=== PATIENT | male | born 1960 | race Two or more races ===

== ENCOUNTER → 2024-07-22 | Outpatient (CLI) | payer MEDICAID, SELFPAY ==
--- NOTE | 2024-07-22 12:00 | XR_ITS ---
Exam: MRI knee without contrast, right Date and time of exam: July 22, 2024 1223 hours INDICATIONS: Chronic knee pain more severe the last year paresthesias joint clicking instability Technique: Multiple axial, coronal, and sagittal sections on the knee have been obtained. T2-Weighted sagittal, fat-suppressed images, TR 3,500, TE 62, T2 weighted coronal fat-saturated images, TR 3,500, TE 62 Proton density sagittal sections, TR 1800, TE 31. T-1 weighted coronal images, TR 524, TE 13.0 Findings: Medial meniscus anterior horn absent. Medial meniscus, body absent. Posterior horn medial meniscus severe truncation intermargin. Lateral meniscus anterior horn is intact Lateral meniscus, body is intact Posterior horn lateral meniscus is intact Anterior cruciate ligament severely attenuated Posterior cruciate ligament moderately attenuated Knee effusion is large. Quadriceps and patellar tendons appear intact. There is no evidence of tendinosis. Inflammatory change or fracture of Hoffa's fat pad is not seen. Medial patellar facet demonstrates severe thinning. Lateral patellar facet cartilage demonstrates severe thinning. Trochlear cartilage demonstrates severe thinning. Marrow signal adequate. Medial collateral ligament appears intact. No meniscocapsular separation is seen. Illiotibial band and fibular collateral ligament are intact. Biceps femoris tendons appear intact. Medial femoral condylar articular cartilage demonstrates severe thinning. Lateral femoral condylar articular cartilage demonstratesmild thinning. Tibial plateau cartilage demonstrates severe medial thinning. Impression: Absent anterior horn and body of the medial meniscus Severe truncation posterior horn medial meniscus Severely attenuated anterior cruciate ligament Severe thinning cartilage medial patellofemoral joints
== END | disposition home or self-care (01) ==
PROVIDERS: PCP Physician Assistant; Referring Provider Orthopaedic Surgery; Visit Provider Orthopaedic Surgery
DX: M25.861 Other specified joint disorders, right knee (principal)
CPT/HCPCS: 73721

== ENCOUNTER 2024-08-15 09:45 | Day surgery (SDC) | payer MEDICAID, SELFPAY ==
[2024-08-14 10:04] VITALS: BMI 34.1
[2024-08-14 11:02] LABS: Basophils # (Auto) 0.1 Thou/mm3 (0.0-0.2); Basophils % (Auto) 0 % (0-2.5); Eosinophils # (Auto) 0.1 Thou/mm3 (0.0-0.5); Eosinophils % (Auto) 1 % (0-10); Hematocrit 43.5 % (41.0-53.0); Hemoglobin 14.6 g/dL (13.5-16.0); Immature Granulocytes % (Auto) 1 % (0-0); Lymphocytes # (Auto) 1.8 Thou/mm3 (1.0-4.8); Lymphocytes % (Auto) 15 % (10-50); Mean Corpuscular HGB Conc 33.6 g/dl (31.0-37.0); Mean Corpuscular Hemoglobin 30.5 pg (25.0-35.0); Mean Corpuscular Volume 91 fL (80-100); Monocytes # (Auto) 0.8 Thou/mm3 (0.0-0.8); Monocytes % (Auto) 7 % (0-12); Neutrophils # (Auto) 9.1 Thou/mm3 (1.8-7.7); Neutrophils % (Auto) 77 % (37-80); Nucleated Red Blood Cell % 0 /100 WBC (0); Platelet Count 257 Thou/mm3 (140-440); RDW Standard Deviation 47.4 fL (35.1-43.9); Red Blood Count 4.78 Miln/mm3 (4.50-5.90); White Blood Count 11.9 Thou/mm3 (3.8-10.6)
[2024-08-14 11:09] LABS: Partial Thromboplastin Time 24.2 Seconds (22.0-36.0)
[2024-08-14 11:13] LABS: Alanine Aminotransferase 39 U/L (10-49); Albumin, Serum 4.6 gm/dL (3.4-4.8); Albumin/Globulin Ratio 1.6 (1.2-2.2); Alkaline Phosphatase 87 U/L (46-116); Anion Gap 11 (7-16); Aspartate Amino Transferase 25 U/L (0-34); BUN/Creatinine Ratio 31 Ratio (12-20); Bilirubin,Total 0.3 mg/dL (0.3-1.2); Blood Urea Nitrogen 28 mg/dL (9-23); Calcium 10.2 mg/dL (8.3-10.6); Calcium (Corrected) 10.2 mg/dL (8.5-10.1); Carbon Dioxide 25.5 mMol/L (20.0-31.0); Chloride 105 mMol/L (98-107); Creatinine (Component) 0.9 mg/dL (0.6-1.3); Estimated Creatinine Clearance 85.1 mL/min (>60); Globulin 2.8 gm/dL (2.3-3.5); Glucose 152 mg/dL (74-106); Osmolality,Calculated 289 (275-295); Potassium 3.2 mMol/L (3.4-5.1); Sodium 141 mMol/L (136-145); Total Protein 7.4 gm/dL (5.7-8.2); eGFR > 60 See Note
--- NOTE | 2024-08-14 15:24 | ESHP_ITS ---
RE: MAXINE SUAREZ : 1960 DATE OF ADMISSION: 08/15/2024 HISTORY OF PRESENTING COMPLAINT: The patient came to my office on 08/14/2024 for detailed preop history and physical examination for right knee pain. As per history available, the patient has got right knee pain going on for a few years, but last few months are extremely painful. The intensity of pain is graded 8 to 9/10 and it interferes with activities of daily living and quality of life. The patient has to stop walking after 1 to 2 block due to pain. Unable to sleep. MRI scan confirmed torn meniscus with arthritic changes and increased joint fluid. PAST MEDICAL HISTORY: The patient has history of high blood pressure and prediabetic. No history of asthma, seizures, chest pain, myocardial infarction, or bleeding disorder. PAST SURGICAL HISTORY: Cataract surgery and left knee arthroscopy in 03/2024. DRUG HISTORY: 1. Furosemide. 2. Losartan. 3. Naprosyn. 4. Diphenhydramine. 5. Zepbound. ALLERGIES: NIL KNOWN FAMILY HISTORY AND SOCIAL HISTORY: The patient denies smoking, drinking and is not working. PHYSICAL EXAMINATION: GENERAL: Normal built lady. VITAL SIGNS: Pulse 88 per minute. Blood pressure 122/88. NECK: Soft, supple, no masses felt. Trachea is centrally placed. CARDIOVASCULAR SYSTEM: First and second hearts sounds normal. No murmur heard. LUNGS: Bilateral vesicular breath sounds. CHEST: Clear. ABDOMEN: Soft. No masses felt. Bowel sounds present. BREASTS: Exam is not indicated in this case. RECTAL: The patient is advised to see the family physician for rectal examination. EXTREMITIES: Right knee examination revealed mild swelling. There is 2+ tenderness. Active range of motion 0 to 120 degrees of flexion. Patellofemoral crepitus is present. The patient walks with a limp. DIAGNOSTIC DATA: MRI scan confirmed torn meniscus with arthritic changes and possible ACL tear. ASSESSMENT AND PLAN: Since the patient is symptomatic, therefore, right knee arthroscopy was discussed and advised. Risks with anesthesia were explained and that includes, but not limited to reaction to anesthetic agents, cardiac arrest, rarely it might be fatal. Risks with the operation includes infection and if that happens, the patient may need further surgical procedure. Other risks include deep venous thrombosis, pulmonary embolus, which rarely might be fatal. Indeed if one finds grade 3 and/or grade 4 chondromalacia, there is a possibility that the patient may not improve pain-ruelas and in that case, the patient may have to undergo another surgical procedure. The patient is fully aware of that. Accordingly, surgery is booked for 08/15/2024. Appropriate lab work is done. DT: 12:28:25 TT: 15:22:00 Ref: [id number] - TID: [id number]
[2024-08-15] VITALS (7 sets, daily range): BP systolic 102–142; BP diastolic 62–96; PULSE 84–97; RESP 13–23; TEMP 36.2–36.7; O2SAT 95–100; BMI 33.7
--- NOTE | 2024-08-15 12:36 | PD.SUROPNT ---
Date of Procedure 08/15/24 Pre Op Diagnosis 1. Torn medial meniscus right knee joint 2 torn lateral meniscus 3 degenerative joint disease changes 4 synovitis with medial plica Post Op Diagnosis Same Procedure 1. 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 Almost all areas of the medial tibial plateau and femoral condyle were denuded of cartilage. Patella and anterior femoral condyle showed grade IV chondromalacia. The lateral tibial plateau and lateral femoral condyle showed grade III chondromalacia. The medial meniscus showed complex tear. There was a synovitis and medial plica present. ACL was partially torn Procedure Description The patient was given general endotracheal anesthesia. Once satisfactory anesthesia was achieved, tourniquet was placed on right upper thigh. Following that the part was thoroughly prepped and draped. After using Esmarch the tourniquet pressure was raised to 350 mmHg. A skin incision was made proximal to lateral tibial plateau and arthroscope was introduced in the usual fashion. Another a skin incision was made in suprapatellar pouch area and outlet was established. The findings were noted as below. In suprapatellar pouch area significant synovial tissue inflammation was present. Medial plica was present as well. The undersurface of patella showed grade 4 chondromalacia. The anterior femoral condyle showed grade 3/4 chondromalacia. Soft tissue impingement was present. The patellar tracking was checked and found to be good. Medial shelf was present The medial compartment showed grade 4 chondromalacia for medial tibial plateau and medial femoral condyle. Almost all areas of medial tibial plateau were denuded of cartilage. The medial femoral condyle showed more than half area of denuded of cartilage. The medial meniscus showed degeneration and and complex tear tear of the anterior horn, body and posterior horn Another skin incision was made proximal to medial tibial plateau and a probe was introduced and findings were confirmed. The anterior cruciate ligament was partially torn. The anterior drawer test was performed and found to be good. The lateral compartment showed grade III chondromalacia of lateral femoral condyle and tibial plateau. Lateral meniscus showed degeneration of the body and anterior horn. Basket was introduced in medial compartment and torn part of the medial meniscus was excised. A shaver was introduced and shaving of the anterior horn and posterior horn of medial meniscus was performed. Soft tissue impingement was shaved off. Chondroplasty of the medial femoral condyle and medial tibial plateau was performed. The shaving of the body and anterior horn of lateral meniscus was done. Chondroplasty of the lateral femoral condyle and tibial plateau was done. The chondroplasty of the patella and and anterior femoral condyle was performed. The soft tissue impingement was shaved off. A partial synovectomy including excision of plica was performed. Copious amount of irrigation was used to irrigate the knee joint. All the debris were removed. 3-0 Prolene was used to close the wound. About 20 mL of quarter percent Marcaine along with 10 mg of Duramorph was injected. Patient tolerated procedure well. Estimated blood loss was about 5 mL. Prognosis in this case is extremely guarded. Since patient has significant chondromalacia therefore there is a possibility that patient may continue having short and or long-term pain. If the pain is unbearable and last longer patient may be a candidate for knee replacement and patient is fully aware of that. Patient was taken to the recovery room in good condition. Anesthesia GETA Pathology / specimen None Estimated Blood Loss 2 Surgeon Keo Razo MD Surgical Staff Operation Date: 08/15/24 12:30 Case Staff DISBURSING AGENT: Luca Arciniega
--- NOTE | 2024-08-15 12:41 | SUR.PHASEI ---
pt received from OR in recovery bay 1. pt asleep but responds to voice, breathing unlabored on nc 3l. v/s stable. pt dressing to right knee cdi. report received from Bora MICHAEL and Meggan COX.
--- NOTE | 2024-08-15 13:10 | SUR.PHASEI ---
pt able to tolerate oral fluids without difficulty swallowing or nausea/vomiting.
--- NOTE | 2024-08-15 13:52 | SUR.PHASEII ---
pt awake and alert, breathing unlabored on room air. v/s stable. pt dressing to right knee cdi. pt able to ambulate to wheelchair with steay gait. d/c instructions given with friend Philly in room using real estate sales agent Bobby sy6, all questions answered. pt d/c via wheelchair with all belongings.
== END 2024-08-15 13:52 | disposition home or self-care (01) ==
PROVIDERS: Anesthesiology; PCP Physician Assistant; Referring Provider Orthopaedic Surgery; Visit Provider Orthopaedic Surgery
PROC: (CPT 29870; principal; 2024-08-15 12:30)
DX: S83.241A Other tear of medial meniscus, current injury, right knee, initial encounter (principal); M65.90 Unspecified synovitis and tenosynovitis, unspecified site; M17.11 Unilateral primary osteoarthritis, right knee; S83.281A Other tear of lateral meniscus, current injury, right knee, initial encounter
CPT/HCPCS: 29881; 29875; 36415; 80053; 82947; 85025; 85610; 85730; A4217; A4649; J0690; J1100; J1885; J2250; J2274; J2405; J2704; J3010; J3490; J0665; J2270

== ENCOUNTER 2024-10-09 10:30 | Outpatient (RCR) | payer MEDICAID, SELFPAY ==
--- NOTE | 2024-09-29 11:40 | PTNOTE_ITS ---
PT OP Initial Eval Patient Information Outpatient Physical Therapy Treatment Date: 09/29/24 Visit Reasons: right knee surgery Medical Diagnosis: M17.11 Treatment Dx #1: Right Knee Pain Start of Care: 09/29/24 Date of Onset: 08/15/24 Smoking Status Smoking Status: Never smoker Initial Assessment Subjective: Pt is a 64 y/o male s/p right knee arthroscopic surgery 08/15/25. Pt continues to have knee pain (8/10) with walking, standing, chores, and recreational activities. Pt further mentioned he recently left knee arthroscopic surgery and did some physical therapy. Left knee does not better after the surgery and phys ical therapy. Objective: Right Knee AROM: -10 deg to 118 deg Right Knee MMTs: grossly 3+/5 Right Hip MMTs: grossly 3+/5 Knee Cap Mobility: hypomobile in all plane Assessment: Pt demonstrate right knee mobility and strength deficits s/p knee surgery leading to difficulty with ADLs. Pt will attempt physical therapy to increase ROM, strength, and work on knee stability. 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 1) Increase right knee AROM WFL in 6 wks to be able to perform chores 2) Decrease knee pain to 2/10 in 6 wks to be able to walk more than 30 mins 3) Increase right knee MMTs grossly to 4/5 in 6 wks to be able to perform recreational activities 4) Increase right hip MMTs grossly to 4-/5 in 6 wks to be able to perform stairs and steps 5) Indep with HEP Treatment Plan 1) Manual Therapy 2) Therapeutic Activities 3) Therapeutic Exercises 4) Modalities (ice, heat) 5) Balance Training 6) Gait Training Frequency and Duration: 2 x wk for 6 wks Certification Dates: 09/29/24 to 12/27/24 Procedure Charges OP PT Eval Mod Complex 30 minutes: Yes
--- NOTE | 2024-10-03 10:49 | PT.ODAYNRPT ---
PT Outpatient Daily Note OP Daily Note Outpatient Physical Therapy Treatment Date: 10/03/24 Visit Reasons: right knee surgery Subjective: Pt's knee is about the same and continues to hurt. Objective: Please see flow chart for list of ther ex performed Assessment: tolerate exercises with minimal pain Plan: Continue with PT Length of Time (minutes) of Treatment: 30 Minutes Procedure Charges Therapeutic Exercise 30 minutes: Yes
--- NOTE | 2024-10-07 11:10 | PT.ODAYNRPT ---
PT Outpatient Daily Note OP Daily Note Outpatient Physical Therapy Treatment Date: 10/07/24 Visit Reasons: right knee surgery Subjective: Pt reports R knee is doing ok, still has pain and knee is swollen. Objective: Please see flow sheet for ther ex list. Assessment: Pt demonstrates antalgic gait, forward stooped posture and poor heel strike during gait. Pt tolerated open chain interventions with no compalints. Plan: Continue with POC. Length of Time (minutes) of Treatment: 30 Minutes Procedure Charges Therapeutic Exercise 30 minutes: Yes
--- NOTE | 2024-10-09 11:32 | PT.ODAYNRPT ---
PT Outpatient Daily Note OP Daily Note Outpatient Physical Therapy Treatment Date: 10/09/24 Visit Reasons: right knee surgery Subjective: Pt's reason on continues due of the crutches is due to pain and knee wants to buckle. Pt's knee feel so-so Objective: Please see flow chart for list of ther ex performed Assessment: GT with FWW; patient demonstrate ability to WB more through the LEs in stance with upright posture Plan: Continue with PT Length of Time (minutes) of Treatment: 30 Minutes Procedure Charges Therapeutic Exercise 30 minutes: Yes
== END 2024-10-24 23:59 | disposition home or self-care (01) ==
LOC: CPTX 10:30
PROVIDERS: PCP Orthopaedic Surgery; Referring Provider Orthopaedic Surgery; Visit Provider Orthopaedic Surgery
DX: M25.561 Pain in right knee (principal); M17.11 Unilateral primary osteoarthritis, right knee; Z98.890 Other specified postprocedural states
CPT/HCPCS: 97110; 97162

== ENCOUNTER 2024-11-19 10:30 | Outpatient (RCR) | payer MEDICAID, SELFPAY ==
--- NOTE | 2024-11-10 16:10 | PT.ODAYNRPT ---
PT Outpatient Daily Note OP Daily Note Outpatient Physical Therapy Treatment Date: 11/10/24 Visit Reasons: RT knee surgery Subjective: Pt's knee is about the same. Pt doesn't know if he has a follow up appt with the surgeon. Objective: Please see flow chart for list of ther ex performed Assessment: patient continues to use crutches with gait with minimal progress with gait noted. Pt advised to schedule a follow up appt with surgeon for further consultation. Pt gave verbal consent and understanding Plan: Continue with PT Length of Time (minutes) of Treatment: 30 Minutes Procedure Charges Therapeutic Exercise 30 minutes: Yes
--- NOTE | 2024-11-17 11:16 | PT.ODAYNRPT ---
PT Outpatient Daily Note OP Daily Note Outpatient Physical Therapy Treatment Date: 11/17/24 Visit Reasons: RT knee surgery Subjective: Pt reports R knee is doing ok. Surgeon recommended pt use cane but as per pt it is too painful. Pt has a follow up with doctor at the end of the month. Objective: Please see flow sheet for ther ex list. Assessment: Pt demonstrates poor tolerance with closed chain interventions due to pain response. Plan: Continue with pOC. Length of Time (minutes) of Treatment: 30 Minutes Procedure Charges Therapeutic Exercise 30 minutes: Yes
--- NOTE | 2024-11-19 10:47 | PT.ODAYNRPT ---
PT Outpatient Daily Note OP Daily Note Outpatient Physical Therapy Treatment Date: 11/19/24 Visit Reasons: RT knee surgery Subjective: Pt's knee is better. Pt mentioned he recently seen surgeon and plan to repeat xray in the right knee. Surgeon wants patient to do more physical therapy. Objective: Please see flow chart for list of ther ex performed Assessment: progress patient to more closed chain exercises with good tolerance. Cues to correct fwd lunge exercise to have knee behind 2nd toe to decrease anterior knee pain. Plan: Continue with PT Length of Time (minutes) of Treatment: 30 Minutes Procedure Charges Therapeutic Exercise 30 minutes: Yes
== END 2024-11-24 23:59 | disposition home or self-care (01) ==
LOC: CPTX 10:30
PROVIDERS: PCP Orthopaedic Surgery; Referring Provider Orthopaedic Surgery; Visit Provider Orthopaedic Surgery
DX: M25.561 Pain in right knee (principal); R26.2 Difficulty in walking, not elsewhere classified; M17.11 Unilateral primary osteoarthritis, right knee; Z98.890 Other specified postprocedural states
CPT/HCPCS: 97110

== ENCOUNTER 2024-11-25 10:31 | Outpatient (RCR) | payer MEDICAID, SELFPAY ==
--- NOTE | 2024-11-25 11:40 | PT.ODS1RPT ---
PT OP Progress/Discharge Note Date of Service: 11/25/24 Progress Note/DC Note Progress Note/Discharge Note: DC Note Patient Information Visit Reasons: Right knee surgery Medical Diagnosis: M17.11 Treatment Dx #1: Right Knee Pain Service Discharge Date: 11/25/24 Status Subjective: Pt's knee pain is about the same. Pt mentioned he continues to have limitation with sitting, standing, chores, walking, balance, and ADLs. Pt's surgeon mentioned he has stage 4 knee OA and will most likely need a knee replacement in the future. Objective: Right Knee AROM: -5 deg to 125 deg Right Knee MMTs: grossly 4-/5 Right Hip MMTs: grossly 3+/5 Assessment: Pt demonstrate functional right knee mobility and strength, however, no change in pain leading to difficulty with ADLs. Pt will no longer benefit from physical therapy due to minimal progress towards goals. Pt was instructed on HEP last session and educated to continue exercises to maintain overall mobility. Pt performed all exercises safely, thank you for your referrals. Plan: D/C home with HEP and follow up with MD BILLY Procedure Charges Therapeutic Exercise 30 minutes: Yes
== END 2024-12-24 23:59 | disposition home or self-care (01) ==
LOC: CPTX 10:31
PROVIDERS: PCP Orthopaedic Surgery; Referring Provider Orthopaedic Surgery; Visit Provider Orthopaedic Surgery
DX: M25.561 Pain in right knee (principal); R26.2 Difficulty in walking, not elsewhere classified; R26.89 Other abnormalities of gait and mobility; M17.11 Unilateral primary osteoarthritis, right knee; Z98.890 Other specified postprocedural states
CPT/HCPCS: 97110

== ENCOUNTER → 2024-12-18 | Outpatient (CLI) | payer MEDICAID, SELFPAY ==
--- NOTE | 2024-12-18 09:12 | XR_ITS ---
Examination: PA right knee standing single view TECHNIQUE: PA right knee standing single view Exam date and time: December 18, 2024 1021 hours INDICATIONS: Right knee pain 4 months. FINDINGS: Severe narrowing [id number] medial joint space right knee Advanced osteoarthritis lateral joint space right knee Severe osteopenia No fracture IMPRESSION: Severe narrowing [id number] medial joint space right knee
== END | disposition home or self-care (01) ==
PROVIDERS: Referring Provider Orthopaedic Surgery; Visit Provider Orthopaedic Surgery
DX: M25.861 Other specified joint disorders, right knee (principal); M17.11 Unilateral primary osteoarthritis, right knee
CPT/HCPCS: 73562

== ENCOUNTER 2025-01-22 09:53 | Observation (INO) | payer MEDICAID, SELFPAY ==
--- NOTE | 2025-01-20 12:08 | EKG_ITS ---
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
[2025-01-20 12:13] VITALS: BMI 34.3
[2025-01-20 12:54] LABS: Basophils % (Auto) 0 % (0-2.5); Eosinophils % (Auto) 0 % (0-10); Hematocrit 39.2 % (41.0-53.0); Hemoglobin 13.7 g/dL (13.5-16.0); Immature Granulocytes % (Auto) 1 % (0-0); Immature Granulocytes Auto 0.08 Thou/mm3 (0.00-0.00); Lymphocytes % (Auto) 10 % (10-50); Mean Corpuscular HGB Conc 34.9 g/dl (31.0-37.0); Mean Corpuscular Hemoglobin 31.9 pg (25.0-35.0); Mean Corpuscular Volume 91 fL (80-100); Monocytes # (Auto) 0.4 Thou/mm3 (0.0-0.8); Monocytes % (Auto) 4 % (0-12); Neutrophils # (Auto) 8.6 Thou/mm3 (1.8-7.7); Neutrophils % (Auto) 85 % (37-80); Nucleated Red Blood Cell % 0 /100 WBC (0); Platelet Count 250 Thou/mm3 (140-440); RDW Standard Deviation 44.2 fL (35.1-43.9); White Blood Count 10.2 Thou/mm3 (3.8-10.6)
[2025-01-20 13:09] LABS: Partial Thromboplastin Time 24.5 Seconds (22.0-36.0); Prothrombin Time 11.1 Seconds (9.0-12.2)
[2025-01-20 13:13] LABS: Alanine Aminotransferase 34 U/L (10-49); Albumin, Serum 4.4 gm/dL (3.4-4.8); Albumin/Globulin Ratio 1.7 (1.2-2.2); Alkaline Phosphatase 75 U/L (46-116); Anion Gap 10 (7-16); Aspartate Amino Transferase 25 U/L (0-34); BUN/Creatinine Ratio 39 Ratio (12-20); Bilirubin,Total 0.4 mg/dL (0.3-1.2); Blood Urea Nitrogen 39 mg/dL (9-23); Calcium 8.9 mg/dL (8.3-10.6); Calcium (Corrected) 8.9 mg/dL (8.5-10.1); Carbon Dioxide 24.6 mMol/L (20.0-31.0); Chloride 107 mMol/L (98-107); Estimated Creatinine Clearance 75.8 mL/min (>60); Globulin 2.6 gm/dL (2.3-3.5); Glucose 151 mg/dL (74-106); Osmolality,Calculated 295 (275-295); Potassium 3.4 mMol/L (3.4-5.1); Sodium 142 mMol/L (136-145); eGFR > 60 See Note
[2025-01-22] VITALS (20 sets, daily range): BP systolic 110–148; BP diastolic 75–95; PULSE 58–85; RESP 13–20; TEMP 36–36.8; O2SAT 90–99; BMI 36.3; BMI 38.7
[2025-01-22] MEDS: RINGERS LACTATED 1000 ML 1,000 ML 20 ML IV (06:44)
--- NOTE | 2025-01-22 10:10 | XR_ITS ---
Examination: Knee, right , 3 views Technique: Knee AP, lateral, oblique 3 views Date and time of exam: January 22, 2025 1046 hours INDICATIONS: Postop knee replacement FINDINGS: Prominent osteopenia. Total right knee arthroplasty. Satisfactory alignment. No fracture. IMPRESSION: Total right knee arthroplasty with satisfactory alignment
--- NOTE | 2025-01-22 10:11 | ESOP_ITS ---
Date of Procedure 01/22/25 Pre Op Diagnosis Severe DJD of the right knee joint with significant varus deformity Post Op Diagnosis Same Procedure Right total knee replacement Zari persona implant. Femur size 7 standard Tibial baseplate size E Polyethylene size 16 mm. Medial stabilizer Patella size 29 mm Findings Patient has significant osteoarthritic changes with absent medial joint space. The medial tibial plateau was concave. There is significant loss of articular cartilage. Significant osteophytes were present. Patellofemoral compartment is also was absent. There was significant genu varum deformity. Procedure Description The patient was given a [spinal] anesthesia. The femoral nerve block was also given. Once satisfactory anesthesia was achieved a tourniquet was placed on right upper thigh. Intravenous antibiotics was given at the time of anesthesia. The patient was thoroughly prepped and draped. After using Esmarch the tourniquet pressure was raised to 350 mmHg. A skin incision was made 2 inches proximal to the upper pole of patella going as far down as up to the medial aspect of the tibial tuberosity. The skin was raised as a flap on the site. The bleeding vessels were electrocoagulated as and when encountered. The quadriceps tendon, medial border of the patella and the patellar tendon along the medial aspect of the tibial tuberosity was incised and reflected. The patellar tendon was reflected as much as needed to chelsi the patella. The soft tissue from the upper medial border of the tibia was reflected to correct her genu varum deformity. The knee joint was flexed. The anterior cruciate ligament, medial and lateral meniscus were excised. Next para drill hole was made to the inferior surface of the femur. Following that a sword was placed. A 4?? of abduction was already put into it. Following that a cutting block for the inferior cut of the femur was placed and nicely secured with the pins. The swat was removed. The inferior cut of the femur was made and after that the cutting block was removed. Following that a sizer was placed. A decision was made to use size [7] femur implant. 2 drill holes each in 3?? of external rotation were made. The sizer was removed. Size [7] cutting block was placed. Following that anterior, posterior, anterior chamfer and posterior chamfer cuts were made. The cutting block was removed. The knee joint was extended and a 10 mm trial plastic was removed and the intended level of the tibial cut was marked. The knee joint was flexed. With the help of double-pronged the tibia was displaced anteriorly. An extramedullary jig for the cutting block placement of the tibia was placed. The mechanical axis of the zig was parallel to the mechanical axis of the tibia. Following that the tibial cutting block was placed at the desired level and was secured nicely with the help of pins. Following that the tibial cut was made. In this case was posterior cruciate ligament was saved. The cutting block was removed. The spacer was placed and a decision was made to use size [16] polyethylene. The sizing of the tibial baseplate was done and the decision was made to use size [E] tibial baseplate. Following that size [7] trial femur implant was placed in lateralized position and size [E] tibial tibial baseplate along with size [16] medial stabilizer plastic was placed in knee joint was flexed and extended quite a few times and tibial baseplate was allowed to sit wherever it wanted to. The markings were made for the tibial baseplate. 2 drill holes were made for the inferior surface of the femur trial implant. The trial implant was removed and tibial baseplate was placed again with the help of pins. The collar was placed and superior hole was drilled. Following that a fin cut was made. The patella was reamed with [29] mm diameter reamer. [12] mm thickness was left. A collar was placed and 3 drill holes were made. All the trial implant was placed and patellar tracking was checked and found to be good. Lateral release was done at this point. The wound was irrigated with antibiotic solution every 4-5 minutes. Now the power lavage antibiotic solution was used. The knee joint was flexed. The bone were made dry. The cement was mixed. With the help of cement the tibial baseplate was mounted. The excess cement was removed. The femur implant was placed and trial plastic was placed and knee joint was extended. Patella was also mounted with the help of cementing. Excess cement was removed. Osteophytes from the patella was removed at this time. Once the cement was set the tourniquet pressure was released. The bleeding vessels were electrocoagulated. The trial plastic was removed and 16 mm medial stabilizer ultra high molecular weight polyethylene was placed. Closure The quadriceps muscle and medial border of the patella and patellar tendon was closed with the help of 1 strata fix Vicryl in continuous fashion. The medial collateral ligament was also repaired with 1 strata fix. The subcu tissue was closed with 2 oh strata fix. The subcuticular absorbable suture was used for closure of the skin. The wound was cleaned with hydrogen proximal solution and a sterile dressing was applied. Patient tolerated procedure very well. Estimated blood loss [25] mL. Prognosis in this case is good. This was taken to the recovery room in good condition. Anesthesia spinal and other Pathology / specimen None Estimated Blood Loss 25 Surgeon Keo Razo MD Surgical Staff Operation Date: 01/22/25 07:30 Case Staff Anesthesiologist: Kristofer Lopez RNgrinding and spraying supervisor: Tabitha Joe
--- NOTE | 2025-01-22 10:23 | SUR.PHASEI ---
1023: Pt. AAOx4, vitals stable, breathing unlabored, no complaint of pain or nausea, dressing to right knee CDI, no active bleed noted, pt. able to wiggle bilateral legs, cap refill to bilateral feet less than 3 seconds, bilateral dorsalis pedis pulses strong and regular, report received from MD Lopez and Meggan COX.
--- NOTE | 2025-01-22 11:13 | ESHP_ITS ---
RE: MAXINE SUAREZ : 1960 DATE OF ADMISSION: 01/22/2025 HISTORY OF PRESENT ILLNESS: The patient came to my office earlier with history of pain in the right knee joint. The patient has got pain going on for the last few years. Intensity of pain is 8-9/10. The patient is unable to sleep. Quality of life and activities of daily living is affected. The patient walks with a limp. Unable to walk more than 400-500 yards before he has to stop. The patient underwent right knee arthroscopy in 07/2024, but it did not help him. Recent x-ray revealed significant osteoarthritic changes with almost absent medial joint space and patellofemoral joint space. PAST MEDICAL HISTORY: The patient has a history of prediabetes. No history of high blood pressure, asthma, seizures, chest pain, myocardial infarction or bleeding disorder. PAST SURGICAL HISTORY: Includes bilateral eye cataract surgery. DRUG HISTORY: The patient is on; 1. Losartan. 2. Hydrochlorothiazide. ALLERGIES: NIL KNOWN. FAMILY HISTORY AND SOCIAL HISTORY: Noncontributory. PHYSICAL EXAMINATION: GENERAL: Overweight patient. VITAL SIGNS: Pulse is 88 per minute, blood pressure is 124/86. NECK: Soft. Supple. No mass felt. Trachea is centrally placed. CARDIOVASCULAR SYSTEM: First and second heart sound normal. No murmur heard. LUNGS: Bilateral vesicular breath sounds. CHEST: Clear. ABDOMEN: Soft. No mass felt. Bowel sounds present. EXTREMITIES: Right knee examination revealed 1+ swelling. There is 2+ tenderness especially along the medial joint line. Active range of motion 0-110 degrees of flexion. Crepitus is present. The patient has significant genu varum deformity. Neurovascularly, it is intact. The patient walks with a limp. DIAGNOSTIC DATA: X-ray confirms severe osteoarthritic changes with absent medial joint space and patellofemoral joint space. ASSESSMENT AND PLAN: Since the patient is symptomatic and it is affecting quality of life, an x-ray confirms severe osteoarthritic changes, therefore, right total knee replacement was discussed and advised. With the help of knee model, posters and diagram, it was explained to him in detail. Risks, benefits, and limitations were explained. Risks with anesthesia includes, but not limited to reaction to anesthetic agents, cardiac arrest or rarely it might be fatal. Risks with operation includes infection and if that happens, the patient may need further surgical procedure. Sometime there is a stress fracture proximal and/or distal to the implant, risks of deep venous thrombosis and pulmonary emboli, which rarely might be fatal. No guarantees given regarding outcomes of the procedure and/or pain relief. Sometimes rare complication happens and that includes possible damage to nerve and/or vessels and if that happens, the patient may need further surgical procedure. Possibility of blood transfusion was discussed in detail. The patient has stated that he would accept blood when it is absolutely necessary. Accordingly, surgery is booked for 01/22/2025. Appropriate lab work was done. DT: 10:21:58 TT: 11:12:00 Ref: [id number] - TID: [id number]
--- NOTE | 2025-01-22 11:35 | SUR.PHASEII ---
Received report on pt. s/p surgery from Janelle COX. Pt. is sitting up in bed, tolerating oral fluids, VSS, no c/o pain or nausea at this time, dressing to right knee CDI.
--- NOTE | 2025-01-22 11:40 | SUR.PHASEII ---
report from Olya COX
--- NOTE | 2025-01-22 12:05 | SUR.PHASEII ---
1205: Report received from Angy Wynne RN to resume care, Pt. AAOx4, vitals stable, breathing unlabored, no complaint of pain or nausea, spinal complete, dressing to right knee CDI, pt. tolerated lunch tray well.
[2025-01-22] MEDS: SODIUM CHLORIDE 0.9% 1000 ML 1,000 ML 60 ML IV (13:09)
--- NOTE | 2025-01-22 13:22 | SUR.PHASEII ---
1322: Pt. AAOx4, vitals stable, breathing unlabored, no complaint of pain or nausea, pt. albe to move bilateral legs, cap refill to bilateral legs less than 3 seconds, bilateral dorsalis pedis pulses strong and regular, dressing to right knee CDI, no active bleed noted, Gave report to Isael RN prior to transfer to room 358. Family made aware of transfer to room. Pt. transferred with all personal belongings.
[2025-01-22] MEDS: ceFAZolin/D5W 1 GM IVPB 1 GM/50 ML BAG IV ×2 (14:46→21:35)
[2025-01-23] VITALS: BP 121/66; PULSE 76; RESP 20; TEMP 37.1; O2SAT 94
[2025-01-23 04:00] VITALS: BP 154/90; PULSE 80; RESP 20; TEMP 36.6; O2SAT 93
[2025-01-23 06:22] LABS: Basophils % (Auto) 0 % (0-2.5); Eosinophils % (Auto) 0 % (0-10); Hematocrit 32.3 % (41.0-53.0); Hemoglobin 11.1 g/dL (13.5-16.0); Immature Granulocytes % (Auto) 1 % (0-0); Immature Granulocytes Auto 0.13 Thou/mm3 (0.00-0.00); Lymphocytes # (Auto) 0.9 Thou/mm3 (1.0-4.8); Lymphocytes % (Auto) 5 % (10-50); Mean Corpuscular HGB Conc 34.4 g/dl (31.0-37.0); Mean Corpuscular Hemoglobin 32.4 pg (25.0-35.0); Mean Corpuscular Volume 94 fL (80-100); Monocytes # (Auto) 1.1 Thou/mm3 (0.0-0.8); Monocytes % (Auto) 6 % (0-12); Neutrophils # (Auto) 15.1 Thou/mm3 (1.8-7.7); Neutrophils % (Auto) 88 % (37-80); Nucleated Red Blood Cell % 0 /100 WBC (0); Platelet Count 200 Thou/mm3 (140-440); RDW Standard Deviation 44.7 fL (35.1-43.9); Red Blood Count 3.43 Miln/mm3 (4.50-5.90); White Blood Count 17.3 Thou/mm3 (3.8-10.6)
[2025-01-23] MEDS: SODIUM CHLORIDE 0.9% 1000 ML 1,000 ML 60 ML IV (07:50)
[2025-01-23 08:00] VITALS: BP 137/84; PULSE 82; RESP 17; TEMP 36.9; O2SAT 96
--- NOTE | 2025-01-23 09:34 | PC.NURSE ---
Malcolm from PT here to evaluate and work with pt.
--- NOTE | 2025-01-23 10:59 | PC.SS ---
SS received a call from Jaime PT pt will need a FWW, SS contacted Dr. Marcelino office and spoke to Negra who reported pt was given a prescription for a FWW on January 15.
[2025-01-23 12:00] VITALS: BP 137/82; PULSE 78; RESP 17; TEMP 36.6; O2SAT 97
--- NOTE | 2025-01-23 13:37 | PC.PT ---
Patient is safe to ambulate to the bathroom and in the halls with a FWW and 1 staff assist. RN made aware.
--- NOTE | 2025-01-23 15:09 | PC.SS ---
Rounding: Dr. Marcelino pt, will DC home. FWW Order was given to pt from Dr. Marcelino office. No needs identified.
[2025-01-23] MEDS: MORPHINE SULF INJ 10 MG/ML VIAL 4 MG IVP ×2 (15:46→23:34)
[2025-01-23 16:00] VITALS: BP 139/84; PULSE 81; RESP 18; TEMP 36.8; O2SAT 97
[2025-01-23 20:00] VITALS: BP 172/98; PULSE 87; RESP 22; TEMP 36.7; O2SAT 95
[2025-01-24] VITALS: BP 143/82; PULSE 69; RESP 18; TEMP 37.2; O2SAT 95
[2025-01-24 04:00] VITALS: BP 160/91; PULSE 60; RESP 19; TEMP 37; O2SAT 97
[2025-01-24] MEDS: MORPHINE SULF INJ 10 MG/ML VIAL 4 MG IVP ×2 (06:24→12:29)
[2025-01-24 08:00] VITALS: BP 157/76; PULSE 64; RESP 18; TEMP 36.9; O2SAT 96
--- NOTE | 2025-01-24 09:19 | PC.LAC ---
Dr Razo called with verbal orders to discharge pt. home, he stated Pt. has pain meds and a waker at home, he also stated to let the pt know that if he wants to go to rehab he can, but he doesnt recommend it due to higher risk of infection.
[2025-01-24 12:00] VITALS: BP 164/83; PULSE 69; RESP 17; TEMP 36.7; O2SAT 95
--- NOTE | 2025-01-27 13:29 | PD.ANESPROG ---
Documentation for date of: 01/27/25 POST ANESTHESIA NOTE: Patient had spinal anesthesia and R femoral block and MAC for R TKA on 01/22/25. I just called his number for follow up but no answer. Kristofer Lopez MD Anesthesia Progress Note Progress Note Most recent Vital Signs: Last Vital Signs Temp 98.0 F 01/24/25 12:00 Pulse 69 01/24/25 12:00 Resp 17 01/24/25 12:00 BP 164/83 H 01/24/25 12:00 Pulse Ox 95 01/24/25 12:00 O2 Del Method Room Air 01/24/25 04:00 O2 Flow Rate 2 01/22/25 11:15
--- NOTE | 2025-02-02 10:56 | ESHP_ITS ---
RE: MAXINE SUAREZ : 1960 DATE OF ADMISSION: 01/15/2025 HISTORY OF PRESENT ILLNESS: The patient came to my office on 01/15/2025 for detailed preop history and physical examination. The patient presented to me earlier with history of pain, swelling, clicking, and locking of the right knee joint. The patient graded intensity of pain to be 8-9/10. Quality of life and activities of daily living is affected. The patient is unable to sleep and unable to walk more than 1-2 blocks before he has to stop walking. Basically, the patient wants something to be done about . PAST MEDICAL HISTORY: The patient has a history of high blood pressure. No history of asthma, seizure, chest pain, myocardial infarction, or bleeding disorder. PAST SURGICAL HISTORY: Bilateral eye cataract surgery. DRUG HISTORY: The patient is taking, 1. Losartan. 2. Vitamin D2. ALLERGIES: NIL KNOWN. FAMILY HISTORY AND SOCIAL HISTORY: The patient denies smoking, drinking and is not working. PHYSICAL EXAMINATION: GENERAL: Normal built person. VITAL SIGNS: Pulse 76 per minute, blood pressure 140/100. NECK: Soft, supple. No masses felt. Trachea is centrally placed. CARDIOVASCULAR SYSTEM: First and second heart sound normal. No murmur heard. LUNGS: Bilateral vesicular breath sounds. CHEST: Clear. ABDOMEN: Soft. No masses felt. Bowel sounds present. RECTAL: Not indicated in this case. The patient is advised to see the family physician for rectal examination. 1+ tenderness. Range of motion is 0 to 115 degrees of flexion. Hiram's test is positive. Drop test and Shiv tests assessment tests were negative. The patient walks with a limp. DIAGNOSTIC DATA: MRI scan confirmed torn meniscus, degenerative joint disease changes and synovitis with increased joint food. ASSESSMENT AND PLAN: Since the patient is symptomatic, therefore, right knee arthroscopy was discussed and advised. Detailed discussion took place and all questions were answered. With the help of pictures and diagram, it was explained to him. Risks with anesthesia was explained and that includes, but not limited to reaction to anesthetic agents, cardiac arrest rarely it might be fatal. Risks with operations include infection and if that happens, the patient may need further surgical procedure. Other risks include delayed healing, wound dehiscence, etc. No guarantee is given regarding outcome of the procedure. Sometimes there is a deep venous thrombosis and pulmonary embolus. Indeed, if one find grade 4 chondromalacia, there is a possibility that the patient may continue having short and/or long-term pain and may need further surgical procedure. Accordingly, the patient is scheduled for surgery on 01/16/2025. Appropriate labwork was done. DT: 12:37:15 TT: 13:39:00 Ref: [id number] - TID: [id number]
== END 2025-01-24 14:00 | disposition home or self-care (01) ==
LOC: S3NX 14:23
PROVIDERS: Anesthesiology; Admitting Provider Orthopaedic Surgery; PCP Nurse Practitioner Family; Referring Provider Orthopaedic Surgery; Visit Provider Orthopaedic Surgery
PROC: (CPT 27447; principal; 2025-01-22 07:30)
DX: M17.11 Unilateral primary osteoarthritis, right knee (principal); Z01.810 Encounter for preprocedural cardiovascular examination; M21.161 Varus deformity, not elsewhere classified, right knee; M25.761 Osteophyte, right knee
CPT/HCPCS: 27447; C1776; 36415; 73562; 80053; 85025; 85610; 85730; 86850; 86870; 86900; 86901; 86921; 86922; 87081; 93005; 96361; 96365; 96375; 96376; 97162; A4217; G0378; J0689; J0690; J1200; J1580; J2250; J2270; J2274; J2704; J2795; J3010; J3490; J7030; J7120

== ENCOUNTER 2025-03-13 09:38 | Inpatient (IN) | payer MEDICAID, SELFPAY ==
[2025-03-13] VITALS (9 sets, daily range): BP systolic 145–187; BP diastolic 83–97; PULSE 61–81; RESP 14–21; TEMP 36.2–36.8; O2SAT 98–100; BMI 34.2; BMI 32.5
--- NOTE | 2025-03-13 10:08 | XR_ITS ---
Examination: AP chest single view Technique one AP portable upright chest single view Date and time: March 13, 2025 1022 hours INDICATIONS: Preop, treatment knee infection FINDINGS: Mild prominence left ventricle No pneumonia or pulmonary edema Poor inspiratory effort IMPRESSION: Poor inspiratory effort chest x-ray
--- NOTE | 2025-03-13 10:08 | EKG_ITS ---
[facility] Test Date: 2025-03-13 Pat Name: MAXINE SUAREZ Department: Room: - Gender: Male Strategic Planning Manager: : 1960 Requested By: Juan Lagos Order Number: [id number] Reading MD: Juan Lagos Measurements Intervals [place] Rate: 65 P: 57 VT: 161 QRS: -9 QRSD: 103 T: 50 QT: 378 QTc: 394 Interpretive Statements SINUS RHYTHM VOLTAGE CRITERIA FOR LVH [MEETS CRITERIA IN ONE OF: R(aVL), S(V1), R(V5), R(V5/V6)+S(V1)] NONSPECIFIC T-WAVE ABNORMALITY Compared to ECG 03/27/2024 10:12:51 T-wave abnormality now present /store/S0/[id number]/ecg/[id number].pdf
[2025-03-13] MEDS: SODIUM CHLORIDE 0.9% 1000 ML 1,000 ML 100 ML IV (10:42)
[2025-03-13] MEDS: ceFAZolin/D5W 2 GM IV 2 GM/100 ML BAG IV (10:43)
--- NOTE | 2025-03-13 10:48 | EDNOTE_ITS ---
ED Extremity Problem RME/HPI General Chief complaint: Extremity Problem,Nontraumatic Stated complaint: Right knee infection X 2 days Time Seen by Provider: 03/13/25 09:58 Arrival date/time: 03/13/25 09:38 Limitations: no limitations RME / HPI RME / HPI Narrative: DR. MERIDA MAIN ED EVALUATION: 64 year old male presenting via private vehicle with complaints of right knee bleeding. He underwent right knee surgery approximately 2.5 weeks ago, performed by Dr. Razo. He reports doing well until yesterday, when bleeding from the surgical site began. He was evaluated by Dr. Razo during a follow-up and was advised to return to the emergency department for further evaluation and possible surgical intervention. He denies fever, chills, weakness, headache, shortness of breath, chest pain, nausea, vomiting, or other systemic symptoms. The patient notes that movement appears to worsen the bleeding. No current signs of infection or systemic illness reported. Related Data Home Medications ?Medication ?Instructions ?Recorded ?Confirmed losartan 100 1 tab PO DAILY 01/20/2512/26 7/25 mg-hydrochlorothiazide 25 mg tablet Allergies Allergy/AdvReac Type Severity Reaction Status Date / Time No Known Allergies Allergy Verified 03/13/25 09:48 Review of Systems Review of Systems Systems Reviewed: All systems reviewed, normal except as documented Past Medical History Past Medical History CARDIAC: Positive Cardiac Disorders and Hypertension RESPIRATORY: Positive Pneumonia GASTROINTESTINAL: Positive Gastrointestinal Disorders and Obesity MUSCULOSKELETAL: Positive Musculoskeletal Disorders and Arthritis ENT: Positive Cataracts (bilateral) ENDOCRINE: Positive Endocrine Disorders and Diabetes Mellitus Type 2 (was on Ozempic, not anymore, pt stated prediabetes) OTHER HISTORY: Positive Chicken Pox and Measles Family History FAMILY HISTORY: Positive Family Cardiac Disorders Surgical History SURGICAL: Positive Arthroscopy (Left) Social History SMOKING STATUS: Never smoker SUBSTANCE USE: does not use ALCOHOL: Never ED Exam General Limitations: Present no limitations General appearance: Present alert and in no apparent distress Head Head exam: Present atraumatic, normocephalic and normal inspection Eye Eye exam: Present normal appearance, PERRL and EOMI ENT ENT exam: Present normal exam, normal oropharynx and mucous membranes moist Neck Neck exam: Present normal inspection, full ROM and trachea midline Chest Chest inspection: Present normal inspection and symmetric chest wall rise Respiratory Respiratory exam: Present normal lung sounds bilaterally Cardiovascular Cardiovascular exam: Present regular rate, normal rhythm and normal heart sounds Abdominal Exam Abdominal exam: Present soft and normal bowel sounds Expanded Lower Extremity Exam Knee exam: Present other (separation of the skin of the right right, post op, skin soft with bleeding; no fluctuates under the skin; movement cause it to bleed. Otherwise FROM and no pain.) Back Exam Back exam: Present normal inspection and full ROM Neurological Exam Neurological exam: Present alert, oriented X3 and CN II-XII intact Psychiatric Psychiatric exam: Present normal affect and normal mood Skin Skin exam: Present warm, dry, intact and normal color Course Quality Measures none Orders Category Date Time Status COVID-19 Screening Questionnaire NOW Care 03/13/25 11:21 Active Lobster Man NOW Care 03/13/25 10:08 Active Continuous Pulse Oximetry NOW Care 03/13/25 10:08 Completed Decision to Admit X1 Care 03/13/25 11:20 Completed EKG (ED ONLY) *Do not use* NOW Care 03/13/25 10:08 Completed Insert IV NOW Care 03/13/25 10:08 Active Consult to Orthopedic Stat Cons 03/13/25 11:20 Ordered EKG (ED Only) Stat Exams 03/13/25 10:08 Draft XR chest 1V portable Stat Exams 03/13/25 10:08 Completed CBC Stat Lab 03/13/25 10:37 Completed CRP [C-Reactive Protein] Stat Lab 03/13/25 11:18 Ordered Comprehensive Metabolic Panel Stat Lab 03/13/25 10:37 Completed ESR [Sed Rate (ESR)] Stat Lab 03/13/25 11:18 Ordered Partial Thromboplastin Time Stat Lab 03/13/25 10:37 Completed Prothrombin Time with INR Stat Lab 03/13/25 10:37 Completed Urinalysis Stat Lab 03/13/25 11:08 Completed Sodium Chloride 0.9% 1000 ml [Ns] 1,000 ml Med 03/13/25 10:08 Active IV 100 mls/hr ceFAZolin/D5W 2 GM IV [Ancef 2gm Ivpb] Med 03/13/25 10:09 Discontinued 2 gm in 100 ml IV X1 Vital Signs Vital signs: Vital Signs Temperature 98.2 F 03/13/25 09:59 Pulse Rate 73 03/13/25 09:59 Respiratory Rate 18 03/13/25 09:59 Blood Pressure 187/96 H 03/13/25 09:59 Pulse Oximetry (%) 99 03/13/25 09:59 Oxygen Delivery Method Room Air 03/13/25 09:59 Extremity Problem MDM Narrative MDM Narrative:: I, Tigist Iyer, am scribing for and in the presence of Dr. Merida. Plan to give antibiotics and fluids. Patient here for right knee bleed, post op Dr. Razo to admit and most likely do repair surgery. Patient data External records reviewed:: [facility] previous records Clinical information provided by:: patient Social determinants that could affect healthcare access:: none Patient has the following chronic illnesses:: He underwent right knee surgery approximately 2.5 weeks ago, performed by Dr. Razo. How is presenting disease/condition affected by chronic disease/condition?: exacerbated by Evaluation data The following diagnostics were reviewed and interpreted by me:: lab results Lab and/or radiology exams considered but not ordered:: none Interpretation Summary: My interpretation: EKG performed at 1019 hours, sinus rhythm, rate 65, no acute changes, no STEMI Procedure(s): XR chest 1V portable Accession Number(s): [id number] cc: Juan Merida MD; Juan Pablo Deal MD; NO PRIMARY/FAMILY,PHYSICIAN~ Examination: AP chest single view Technique one AP portable upright chest single view Date and time: March 13, 2025 1022 hours INDICATIONS: Preop, treatment knee infection FINDINGS: Mild prominence left ventricle No pneumonia or pulmonary edema Poor inspiratory effort IMPRESSION: Poor inspiratory effort chest x-ray Dictated By: Juan Pablo Deal MD Medications / Prescriptions Medications or Prescriptions considered but not ordered:: none Medication administrations:: Medication Administration History Acetaminophen (Acetaminophen 325 Mg Tablet) 650 mg PO Q6H PRN PRN Reason: Fever >100.4 Stop: 04/12/25 11:46 Acetaminophen (Acetaminophen 325 Mg Tablet) 650 mg PO Q6H PRN PRN Reason: PAIN SCALE 1-3 (mild Stop: 04/12/25 11:46 Hydrocodone Bitart/Acetaminophen (Hydrocodone/Apap 5/325 Tablet) 1 tab PO Q4HR PRN PRN Reason: PAIN SCALE 4-6 (Moderate Stop: 03/18/25 11:46 Clotrimazole (Clotrimazole Cr 1% 30 Gm Tube) 0 gm TOP BID ADITI Stop: 04/12/25 20:59 Heparin Sodium (Porcine) (Heparin Sod Inj 5000 Unit/Ml Vial) 5,000 unit SC Q8HR ADITI Stop: 03/27/25 13:59 Hydromorphone HCl (Hydromorphone Inj 2 Mg/Ml Vial) 1 mg IVP Q4HR PRN; Protocol PRN Reason: PAIN Stop: 03/18/25 11:41 Sodium Chloride (Ns) 1,000 mls @ 100 mls/hr IV .Q10H ONE Stop: 03/13/25 20:07 Last Admin: 03/13/25 10:42 Dose: 100 mls/hr Documented By: TM Piperacillin/Tazobactam/Dextrose (Zosyn) 3.375 gm in 50 mls @ 12.5 mls/hr IV Q8HR ADITI Stop: 03/20/25 21:59 Vancomycin HCl 1,500 mg/ (Sodium Chloride) 500 mls @ 200 mls/hr IV X1 ONE Stop: 03/13/25 14:59 Ondansetron HCl (Ondansetron Inj 2 Mg/Ml Inj 2 Ml) 4 mg IVP Q6H PRN; Protocol PRN Reason: NAUSEA OR VOMITING Stop: 04/12/25 11:46 Pantoprazole Sodium (Pantoprazole 40 Mg Tablet) 40 mg PO QDAY [facility] Stop: 04/12/25 11:59 Pharmacy Consult (Vancomycin Pharmacy To Dose 1 Each Each) 1 each IV QDAY ADITI Stop: 04/12/25 11:29 Sennosides (Senna Tablet) 1 tab PO QDAY PRN; Protocol PRN Reason: constipation Stop: 04/12/25 11:46 Discontinued Medications Clotrimazole (Clotrimazole Cr 1% 30 Gm Tube) 0 gm TOP BID ADITI Stop: 04/12/25 20:59 Cefazolin Sodium (Ancef 2gm Ivpb) 2 gm in 100 mls @ 100 mls/hr IV X1 ONE Stop: 03/13/25 11:08 Last Infusion: 03/13/25 11:43 Dose: Infused Documented By: Admin: 03/13/25 10:43 Dose: 100 mls/hr Documented By: JONI Piperacillin/Tazobactam/Dextrose (Zosyn) 3.375 gm in 50 mls @ 100 mls/hr IV X1 ONE Stop: 03/13/25 12:29 Last Admin: 03/13/25 11:45 Dose: 100 mls/hr Documented By: JONI see above Consultations Consultation(s) initiated? (list below): Yes Consultation #1 (Physician, Specialty, Details): Discussed test HPI, PMHx, lab, radiology results and/or management with Dr. Razo. Will consult an admission to the hospitalist. Will take the patient to OR and recommended to keep patient NPO. Time: 11:00 Time: 11:10 Consultation #3 (Physician, Specialty, Details): Discussed test HPI, PMHx, lab, radiology results and/or management with resident working with the hospitalist. Will admit for further evaluation and management. Accepts patient for admission. Diagnosis Extremity Problem Differential Diagnosis: other (post-surgical wound dehiscence, localized hematoma, and superficial surgical site infection) Most likely diagnosis given after review of the tests above:: Cellulitis of right knee Status post right knee surgery Right knee bleed Admission Indicated Admission indicated?: indicated Admission Request Was there a request for admission?: Yes Admission Attestation Admission request attestation: Discussed case with [] from Hospitalist service regarding admission. Discussed patients ED course, exam findings, labs, and radiology results. The Hospitalist [agrees,declines] to accept the patient for admission. Disposition Plan Disposition Plan: Admit Discharge Plan Plan Patient Disposition: Admit Acute Care w/in Hospital Problem List Clinical Impression: Cellulitis of knee, right, Status post right knee surgery Impression comment: right knee bleed
[2025-03-13 10:56] LABS: Basophils # (Auto) 0.1 Thou/mm3 (0.0-0.2); Basophils % (Auto) 1 % (0-2.5); Eosinophils # (Auto) 0.1 Thou/mm3 (0.0-0.5); Eosinophils % (Auto) 1 % (0-10); Hematocrit 32.7 % (41.0-53.0); Hemoglobin 11.4 g/dL (13.5-16.0); Immature Granulocytes Auto 0.11 Thou/mm3 (0.00-0.00); Lymphocytes # (Auto) 0.9 Thou/mm3 (1.0-4.8); Lymphocytes % (Auto) 9 % (10-50); Mean Corpuscular HGB Conc 34.9 g/dl (31.0-37.0); Mean Corpuscular Hemoglobin 31.8 pg (25.0-35.0); Mean Corpuscular Volume 91 fL (80-100); Monocytes # (Auto) 0.6 Thou/mm3 (0.0-0.8); Monocytes % (Auto) 6 % (0-12); Neutrophils # (Auto) 8.4 Thou/mm3 (1.8-7.7); Neutrophils % (Auto) 83 % (37-80); Nucleated Red Blood Cell # 0.00 Thou/mm3 (0.00-0.00); Nucleated Red Blood Cell % 0 /100 WBC (0); Platelet Count 283 Thou/mm3 (140-440); RDW Standard Deviation 48.6 fL (35.1-43.9); Red Blood Count 3.58 Miln/mm3 (4.50-5.90); White Blood Count 10.2 Thou/mm3 (3.8-10.6)
[2025-03-13 11:11] LABS: INR 1.0 (0.9-1.3); Partial Thromboplastin Time 24.1 Seconds (22.0-36.0); Prothrombin Time 11.3 Seconds (9.0-12.2)
[2025-03-13 11:13] LABS: Alanine Aminotransferase 20 U/L (10-49); Albumin, Serum 4.1 gm/dL (3.4-4.8); Anion Gap 15 (7-16); Aspartate Amino Transferase 20 U/L (0-34); BUN/Creatinine Ratio 30 Ratio (12-20); Bilirubin,Total 0.4 mg/dL (0.3-1.2); Blood Urea Nitrogen 21 mg/dL (9-23); Calcium 9.0 mg/dL (8.3-10.6); Calcium (Corrected) 9.0 mg/dL (8.5-10.1); Carbon Dioxide 21.5 mMol/L (20.0-31.0); Chloride 109 mMol/L (98-107); Creatinine (Component) 0.7 mg/dL (0.6-1.3); Estimated Creatinine Clearance 108.1 mL/min (>60); Globulin 2.7 gm/dL (2.3-3.5); Glucose 147 mg/dL (74-106); Osmolality,Calculated 294 (275-295); Potassium 3.4 mMol/L (3.4-5.1); Sodium 145 mMol/L (136-145); Total Protein 6.8 gm/dL (5.7-8.2); eGFR > 60 See Note
[2025-03-13 11:14] LABS: Albumin/Globulin Ratio 1.5 (1.2-2.2); Alkaline Phosphatase 95 U/L (46-116)
[2025-03-13 11:17] LABS: Collection Type, Urine Clean Catch
[2025-03-13 11:27] LABS: Bilirubin,Urine Negative (Negative); Blood,Urine Negative (Negative); Clarity,Urine Clear (Clear/Hazy); Color,Urine Yellow (Lt Yel-Yel); Glucose, Urine Negative (Negative); Hyaline Casts,Urine < 1 /hpf (0-1); Ketones,Urine Negative (Negative); Leukocyte Esterase,Urine Negative (Negative); Nitrite,Urine Negative (Negative); PH,Urine 6.0 (5.0-7.0); Protein,Urine Negative (Neg - Trace); RBC,Urine 8 /hpf (0-3); Specific Gravity,Urine 1.028 (1.001-1.035); Squamous Epithelial Cell,Urine < 1 /hpf (0-5); Urobilinogen,Urine Negative mg/dL (0.0-1.0); WBC,Urine 3 /hpf (0-5)
[2025-03-13] MEDS: PIPER/TAZO 3.375 GM PREMIX 3.375 GM/50 ML BAG IV ×2 (11:45→21:00)
--- NOTE | 2025-03-13 11:48 | PC.CC ---
Patient is a 64 year-old male who presents to the hospital for right knee infection. SATNAMWAmi and PERSONNEL ASSISTANT Student Stacia made [id number] contact with patient. ASW introduced self, role, and reason for visit. Patient appeared alert and oriented to self, location, and situation. Patient provided consent for PERSONNEL ASSISTANT to remain in the room during assessment. Patient was pleasant and engaged in initial assessment. Patient reports he lives in a trailer on its own lot with his friend Philly Vazquez . Patient reports that Philly is his medical decision maker in the event he is unable to make his own medical decisions. Per patient he is using crutches to ambulate and has been struggling. Patient reports he is able to complete his own ADLs. Patient's primary provider is Annie from [facility] in [place]. No other DME required. Patient plans to discharge back home. 911 emergency services dispatcher to follow up with any discharge needs.
[2025-03-13] MEDS: Vancomycin Inj 1,500 MG in SODIUM CHLORIDE 0.9% 500 ML 500 ML 200 MG IV (13:17)
[2025-03-13 13:44] LABS: INR 1.0 (0.9-1.3); Partial Thromboplastin Time 23.7 Seconds (22.0-36.0); Prothrombin Time 11.3 Seconds (9.0-12.2)
[2025-03-13 13:47] LABS: Sed Rate (ESR) 23 mm/hr (0-20)
[2025-03-13 13:49] LABS: C-Reactive Protein < 0.5 mg/dL (0.0-0.9)
--- NOTE | 2025-03-13 16:23 | SUR.PHASEI ---
1623: Pt. AAOx4, vitals stable, breathing unlabored, no complaint of pain or nausea, dressing to right knee CDI, no active bleed noted, bilateral dorsalis pedis pulses strong and regular, cap refill to bilateral feet less than 3 seconds, pt. able to move bilateral legs, report received from Vanesa COX and MD Lopez.
--- NOTE | 2025-03-13 16:30 | XR_ITS ---
Examination: Knee, right , 3 views Technique: Knee AP, lateral, oblique 3 views Date and time of exam: March 13, 2025 at 1650 hours Indications: Postop right knee replacement today. FINDINGS: Total right knee arthroplasty. Satisfactory alignment. Moderate osteopenia. No fracture. IMPRESSION: Total right knee arthroplasty with satisfactory alignment.
--- NOTE | 2025-03-13 16:30 | ESOP_ITS ---
Date of Procedure 03/13/25 Pre Op Diagnosis Is status post right total knee replacement 2 months back Infected right knee Post Op Diagnosis Same Rupture of patellar tendon Procedure 1. Irrigation debridement 2 exchange of polyethylene 3 repair of patellar tendon Findings Patient had bleeding at the wound site which was at the distal end of the wound. There was some necrotic tissue at the attachment of the patella at the tibial tuberosity. The patellar tendon was ruptured. Some fluid came out superficially. Procedure Description The patient was given general anesthesia. Was satisfactory anesthesia achieved a tourniquet was placed on right upper thigh. Following that part was thoroughly prepped and draped. After raising the leg for couple of minutes the tourniquet pressure was raised to 350 mmHg There was an wound over the distal aspect of the scar tissue. The wound was about half centimeter in length. Some liquid fluid was coming out. Culture swab was obtained and sent for aerobic anaerobic culture and sensitivity. Following that the skin is was made proximally and distally. The wound skin margin of the wound was excised. The skin and subcu tissue was raised as a flap. Inflammation was present. No alysia pus was coming out. The patellar tendon was found to be ruptured only few fibers seems to be attached at the tibial tuberosity. Following that the quadriceps muscle was incised from the proximal and and then went around the medial border of the patella up to the distal end. Following that the patella was everted. The patella was removed the polyethylene was checked. The polyethylene was then removed. Following that culture swab was obtained from the posterior aspect of the knee joint. After that a power lavage antibiotic solution was used. Copious amount of solution was used. Following that back to sure solution was also used. After that the knee joint was then washed with antibiotic solution and hydrogen peroxide solution. All the infected tissue which was rather minimal was removed. Following that trial 16 medial stabilizer was used and was fitting very well. This followed by a to use another polyethylene of the similar size. After placement the knee joint was very stable The quadriceps tendon the medial border of the patella and the patellar tendon on the medial side was repaired with 1 strata fix Vicryl in continuous fashion. The patellar tendon was repaired with 1 strata fix and Phlexy wire. The stable T of the knee joint was tested at this time and was very stable Following that the subcu tissue was closed with 2-0 Vicryl. The skin was closed with the megan and 1 nylon. The nylon was used in interrupted fashion Wound was cleaned with antibiotic solution. Sterile dressing was applied. Hemovac drain was also placed. Estimated blood loss about 25 mL. Anesthesia GETA Pathology / specimen None Estimated Blood Loss 25 Surgeon Keo Razo MD Surgical Staff Operation Date: 03/13/25 15:15 Case Staff Anesthesiologist: Kristofer Lopez RNdoor furring installer: Celia Vásquez
--- NOTE | 2025-03-13 16:46 | SUR.PHASEI ---
1623: Pt. has an accordion wound vac in place, however it is not to draining correctly. Notified MD Razo, per MD Razo he is aware and there is nothing he can do at the moment, that we can remove it when we remove the dressing.
--- NOTE | 2025-03-13 16:47 | ESHP_ITS ---
<Statement entered by Epifanio Pollard MD - 03/13/25 18:31> Patient seen and examined at bedside. I discussed and supervised with the marketing operations intern physician who took care of this patient. I personally saw and examined the patient. I agree with most of the assessment and plan. Presents with bleeding from R knee, recently replaced. Was reopended by Dr. Razo today, who found patellar tendon rupture, performed washout and component replacement, well tolerated. Empiric vancomycin and zosyn, cultures pending. Plan of care discussed with attending Dr. Denny. Epifanio Pollard MD PGY-2 Documentation for date of: 03/13/25 HPI History of Present Illness Chief complaint: Right knee wound bleeding - post recent total knee arthroplasty History of present illness: This is a 64-year-old male with a history of hypertension, prediabetes, and prior bilateral knee surgeries, presenting with concerns of bleeding and drainage from his right knee surgical site. He underwent a right total knee arthroplasty on January 22, 2025, followed by a washout and debridement on January 28, 2025, both performed by Dr. Razo. The patient reports that he had been healing well and ambulating without major issues until yesterday, when he noticed spontaneous bleeding from the distal end of the right knee incision site. He states that movement seems to worsen the bleeding. There was no trauma to the area. He followed up with his orthopedic surgeon earlier that day and was advised to come to the ED for further evaluation due to concern for wound dehiscence and possible underlying infection. He denies fever, chills, fatigue, chest pain, shortness of breath, abdominal pain, nausea, vomiting, or systemic complaints. He also notes that he recently developed a red, raised, and itchy rash on his left leg, with some milder involvement of the right leg, which appears to be spreading; it is dry and scaly and was not present before his recent surgery. He denies any known allergies or new exposures. He reports that he had been taking Keflex, clindamycin, and naproxen as part of his post-op regimen at home. He denies tobacco, alcohol, or drug use. He arrived at the ED via private vehicle ED Course: In the emergency department, the patient was afebrile and hemodynamically stable. He reported new-onset bleeding and purulent drainage from the distal end of his right knee surgical wound, approximately two weeks after total knee arthroplasty. Labs were notable for a normal white blood cell count (10.2), hemoglobin of 11.4, and glucose of 147. ESR and CRP were within normal limits. Urinalysis showed mild pyuria but no signs of infection. Chest X-ray revealed no acute findings, aside from poor inspiratory effort and mild left ventricular prominence. EKG showed normal sinus rhythm at a rate of 65 bpm without acute changes. A right knee X-ray demonstrated satisfactory alignment of the prosthesis without evidence of fracture. The patient was started on IV Vancomycin and Zosyn. Orthopedic surgery was consulted, Past Medical History: * Hypertension * Prediabetes * Obesity * Arthritis * GERD * History of pneumonia Past Surgical History: * Right total knee arthroplasty ? 01/22/2025 * Irrigation and debridement, right knee ? 01/28/2025 * Left total knee arthroplasty ? 12/2023 * Left knee arthroscopy * Bilateral cataracts Family History: * Positive for cardiac disease Social History: * Never smoker * No alcohol or drug use * Lives at home Allergies: * No known drug allergies Exam Vital Signs Temp Pulse Resp BP Pulse Ox O2 Del Method 97.7 F 61 21 H 165/83 H 98 Room Air 03/13/25 11:41 03/13/25 11:41 03/13/25 11:41 03/13/25 11:41 03/13/25 11:41 03/13/25 11:41 Narrative Exam General: Alert, NAD CV: RRR, no murmurs, no gallops Resp: Clear to auscultation bilaterally, no distress GI: Soft, NT, ND, +BS Neuro: AOx3, CN II-XII intact Skin/Extremities: * Right knee: healing surgical wound with Hemovac drain, mild erythema and serosanguinous drainage. * Left leg: raised red-border pruritic rash, likely tinea. MSK: FROM in all extremities, mild pain with movement of right leg Results: Labs 03/14/25 04:57 03/14/25 04:57 Labs: Short CBC 03/13/25 Range/Units 10:37 WBC 10.2 (3.8-10.6) Thou/mm3 Hgb 11.4 L (13.5-16.0) g/dL Hct 32.7 L (41.0-53.0) % Plt Count 283 (140-440) Thou/mm3 BMP 03/13/25 10:37 Sodium 145 Potassium 3.4 Chloride 109 H Carbon Dioxide 21.5 BUN 21 Creatinine 0.7 Glucose 147 H Calcium 9.0 Liver Function 03/13/25 Range/Units 10:37 Total Bilirubin 0.4 (0.3-1.2) mg/dL AST 20 (0-34) U/L ALT 20 (10-49) U/L Alkaline Phosphatase 95 (46-116) U/L Albumin 4.1 (3.4-4.8) gm/dL Urine 03/13/25 Range/Units 11:08 Urine Color Yellow (Lt Yel-Yel) Urine Clarity Clear (Clear/Hazy) Urine pH 6.0 (5.0-7.0) Ur Specific [place] 1.028 (1.001-1.035) Urine Protein Negative (Neg - Trace) Urine Glucose (UA) Negative (Negative) Quality Measures Quality Measures none Medications Home Medications and Allergies Home Medications ?Medication ?Instructions ?Recorded ?Confirmed ?Type losartan 100 1 tab PO DAILY 01/20/2502/24 History mg-hydrochlorothiazide 25 mg tablet cephalexin 500 mg capsule 500 mg PO 4XD 03/13/2503/13 History clindamycin HCl 300 mg capsule 300 mg PO 3XD 03/13/25 03/13/25 History naproxen 375 mg tablet 375 mg PO 3XD 03/13/2503/13 History Allergies Allergy/AdvReac Type Severity Reaction Status Date / Time No Known Allergies Allergy Verified 03/13/25 09:48 Visit Medications Acetaminophen (Acetaminophen 325 Mg Tablet) 650 mg PO Q6H PRN PRN Reason: Fever >100.4 Stop: 04/12/25 11:46 Acetaminophen (Acetaminophen 325 Mg Tablet) 650 mg PO Q6H PRN PRN Reason: PAIN SCALE 1-3 (mild Stop: 04/12/25 11:46 Hydrocodone Bitart/Acetaminophen (Hydrocodone/Apap 5/325 Tablet) 1 tab PO Q4HR PRN PRN Reason: PAIN SCALE 4-6 (Moderate Stop: 03/18/25 11:46 Clotrimazole (Clotrimazole Cr 1% 30 Gm Tube) 0 gm TOP BID [facility] Stop: 04/12/25 20:59 Heparin Sodium (Porcine) (Heparin Sod Inj 5000 Unit/Ml Vial) 5,000 unit SC Q8HR [facility] Stop: 03/27/25 13:59 Hydromorphone HCl (Hydromorphone Inj 2 Mg/Ml Vial) 1 mg IVP Q4HR PRN; Protocol PRN Reason: PAIN Stop: 03/18/25 11:41 Sodium Chloride (Ns) 1,000 mls @ 100 mls/hr IV .Q10H ONE Stop: 03/13/25 20:07 Last Admin: 03/13/25 10:42 Dose: 100 mls/hr Piperacillin/Tazobactam/Dextrose (Zosyn) 3.375 gm in 50 mls @ 12.5 mls/hr IV Q8HR [facility] Stop: 03/20/25 21:59 Ondansetron HCl (Ondansetron Inj 2 Mg/Ml Inj 2 Ml) 4 mg IVP Q6H PRN; Protocol PRN Reason: NAUSEA OR VOMITING Stop: 04/12/25 11:46 Pantoprazole Sodium (Pantoprazole 40 Mg Tablet) 40 mg PO QDAY [facility] Stop: 04/12/25 11:59 Pharmacy Consult (Vancomycin Pharmacy To Dose 1 Each Each) 1 each IV QDAY [facility] Stop: 04/12/25 11:29 Sennosides (Senna Tablet) 1 tab PO QDAY PRN; Protocol PRN Reason: constipation Stop: 04/12/25 11:46 Discontinued Medications Clotrimazole (Clotrimazole Cr 1% 30 Gm Tube) 0 gm TOP BID [facility] Stop: 04/12/25 20:59 Cefazolin Sodium (Ancef 2gm Ivpb) 2 gm in 100 mls @ 100 mls/hr IV X1 ONE Stop: 03/13/25 11:08 Last Infusion: 03/13/25 11:43 Dose: Infused Piperacillin/Tazobactam/Dextrose (Zosyn) 3.375 gm in 50 mls @ 100 mls/hr IV X1 ONE Stop: 03/13/25 12:29 Last Infusion: 03/13/25 12:15 Dose: Infused Vancomycin HCl 1,500 mg/ (Sodium Chloride) 500 mls @ 200 mls/hr IV X1 ONE Stop: 03/13/25 14:59 Last Admin: 03/13/25 13:17 Dose: 200 mls/hr Assessment & Plan Plan 64M s/p right TKA (01/22) and I&D (01/28), now with wound dehiscence, intra-op confirmed patellar tendon rupture, and purulent drainage, s/p OR debridement, component exchange, and tendon repair #Right Knee Wound Dehiscence/Infection s/p TKA s/p 01/22 right TKA, 01/28 I&D, now presents with wound breakdown and purulent drainage; intra-op revealed patellar tendon rupture and minimal necrotic tissue s/p OR debridement, component exchange, washout and tendon repair WBC 10.2, ESR/CRP WNL, Hgb 11.4 Knee X-ray: TKA with satisfactory alignment, no fracture; CXR: no infiltrates Plan: * Continue IV Vancomycin and Zosyn pending culture results * Monitor drain output, daily wound checks * Ortho to follow for surgical recovery * Pain control * DVT prophylaxis with heparin * Monitor glucose given stress hyperglycemia #Possible superficial fungal infection (Tinea corporis) on left leg Large, raised, red-border rash with pruritus on left leg; similar but smaller rash on right leg Plan: * Continue topical clotrimazole * Reassess for oral antifungal if rash worsens #Hypertension Known history, mildly elevated BP on admission (187/96), now improved (154/88) Plan: * Continue home Losartan 50 mg * Monitor vitals #Prediabetes Previously on Ozempic, currently not taking medication per patient Plan: * Monitor glucose while inpatient * A1c ordered * Nutrition consult for diabetic diet * Revisit outpatient management post-discharge #Post-op care following TKA revision Plan: * Pain control * Encourage mobility with PT/OT once cleared * Monitor for signs of systemic infection * Monitor for dehiscence or worsening drainage * Follow up with Ortho Health Maintenance Disposition: Admit to floor Feeding: Regular diet DVT prophylaxis: Heparin SC GI prophylaxis: Protonix 40 mg daily Code Status: Full code ----- Plan discussed with attending physician Dr. Denny and senior resident Dr. Sudarshan MD PGY-1 Internal Medicine Attending Provider Attestation/Addendum I, Carmen Denny, , attest that I was physically present for the weaver portions of the service and evaluated the patient with the resident and I reviewed and discussed the case with the resident and agree with the resident's findings and plans of care as documented above Patient is a 64-year-old male with past medical history of hypertension who was sent to the ED by his orthopedic surgeon due to worsening swelling of his right knee. Patient states that he initially had total knee arthroplasty on January 22. He then had a I&D on February 24 due to infection. However, patient has noticed worsening swelling in his right knee with some serosanguineous fluid noted. Patient was subsequently sent by his orthopedic surgeon and has been n.p.o. throughout the night. Patient denies any fevers or chills otherwise. I discussed the case with orthopedic surgeon over the phone and plans to take patient for I&D and exchange for plastic spacer this afternoon. Patient has been on clindamycin and Keflex at home otherwise. Will admit patient to medicine surge for further workup and medical management of prosthetic joint infection. Will place patient on vancomycin and Zosyn and follow cultures closely. Patient will ultimately need a PICC line on Sunday and home health for 6 weeks of antibiotics. On exam, knee incision appears to have some mild opening with some serosanguineous drainage. No pus noted. Some crusting over incision site. Knee is mildly edematous and erythematous.
--- NOTE | 2025-03-13 17:10 | SUR.PHASEI ---
1710: Pt. AAOx4, vitals stable, breathing unlabored, no complaint of pain or nausea, dressing to right knee CDI, no active bleed noted, bilateral dorsalis pedis pulses strong and regular, cap refill to bilateral feet less than 3 seconds, pt. able to move bilateral legs, pt. tolerated sips of soda well, gave report to Isael COX prior to transfer to room 374. Pt. transferred with all personal belongings.
--- NOTE | 2025-03-13 17:26 | ESCONSULT_ITS ---
RE: MAXINE SUAREZ : 1960 DATE OF CONSULTATION: 03/13/2025 Thank you doctor for asking me to consult with patient, whom I saw in the hospital on 03/13/2025. I also saw him in my office yesterday on 03/12/2025. The patient is status post right total knee replacement done in early 01/2025. The distal end was infected. The patient was admitted to emergency room today. There is a history of discharge and a decision was made to go ahead and do incision and drainage. PAST MEDICAL HISTORY: The patient has history of high blood pressure. No history of diabetes mellitus, asthma, seizure, chest pain, myocardial infarction or bleeding disorder. DRUG HISTORY: The patient is on: 1. Losartan. 2. Vitamin D2. ALLERGIES: NIL KNOWN. FAMILY HISTORY AND SOCIAL HISTORY: Noncontributory. PHYSICAL EXAMINATION: GENERAL: Normal built person. VITAL SIGNS: Pulse 88 per minute and blood pressure 130/76. NECK: Soft and supple. No mass felt. Trachea is centrally placed. CARDIOVASCULAR SYSTEM: First and second heart sounds normal. No murmur heard. RESPIRATORY SYSTEM: Bilateral vesicular breath sounds. CHEST: Clear. ABDOMEN: Soft. No mass. Bowel sounds present. EXTREMITIES: Right knee examination revealed mild swelling. At the distal end of the scar, there was some inflammation and redness. Some discharge was coming out. The wound has a size of about 3/4 inches long. Necrotic skin margin was present. The patient was explained that it is going on for now a few days and there is a possibility that his polyethylene plastic of the knee joint was infected. I explained that I will do and irrigate with antibiotic solution and take out all the infected tissue. However, the polyethylene plastic of the knee joint has to be exchanged. Detailed discussion took place. No guarantee was given regarding the outcome of the procedure and/or clearance of any infection. After detailed discussion, patient wanted to proceed with surgery. No guarantee was given regarding outcome of the procedure and patient is fully aware of that. Accordingly, surgery is booked for today itself on 03/13/2025. Appropriate lab was done. DT: 16:44:06 TT: 17:25:00 Ref: [id number] - TID: [id number]
[2025-03-13] MEDS: LOSARTAN POTASSIUM 25 MG TABLET 50 MG PO (18:24)
[2025-03-13] MEDS: PANTOPRAZOLE 40 MG TABLET PO (18:25)
[2025-03-13] MEDS: CLOTRIMAZOLE CR 1% 30 GM TUBE TOP (20:57)
[2025-03-13] MEDS: HEPARIN SOD INJ 5000 UNIT/ML VIAL SC (21:00)
[2025-03-14] VITALS (10 sets, daily range): BP systolic 110–141; BP diastolic 60–84; PULSE 53–80; RESP 16–98; TEMP 35.9–36.3; O2SAT 98–99
[2025-03-14] MEDS: PIPER/TAZO 3.375 GM PREMIX 3.375 GM/50 ML BAG IV ×3 (05:03→22:51)
[2025-03-14] MEDS: HEPARIN SOD INJ 5000 UNIT/ML VIAL SC (05:05)
[2025-03-14 05:58] LABS: Basophils # (Auto) 0.0 Thou/mm3 (0.0-0.2); Basophils % (Auto) 0 % (0-2.5); Eosinophils # (Auto) 0.0 Thou/mm3 (0.0-0.5); Eosinophils % (Auto) 0 % (0-10); Hematocrit 33.5 % (41.0-53.0); Hemoglobin 11.0 g/dL (13.5-16.0); Immature Granulocytes Auto 0.10 Thou/mm3 (0.00-0.00); Lymphocytes # (Auto) 0.9 Thou/mm3 (1.0-4.8); Lymphocytes % (Auto) 8 % (10-50); Mean Corpuscular HGB Conc 32.8 g/dl (31.0-37.0); Mean Corpuscular Hemoglobin 31.2 pg (25.0-35.0); Mean Corpuscular Volume 95 fL (80-100); Monocytes # (Auto) 0.3 Thou/mm3 (0.0-0.8); Monocytes % (Auto) 3 % (0-12); Neutrophils # (Auto) 10.5 Thou/mm3 (1.8-7.7); Neutrophils % (Auto) 89 % (37-80); Nucleated Red Blood Cell # 0.00 Thou/mm3 (0.00-0.00); Nucleated Red Blood Cell % 0 /100 WBC (0); Platelet Count 316 Thou/mm3 (140-440); RDW Standard Deviation 49.4 fL (35.1-43.9); Red Blood Count 3.53 Miln/mm3 (4.50-5.90); White Blood Count 11.8 Thou/mm3 (3.8-10.6)
[2025-03-14 06:17] LABS: Glucose Estimated Average 131 mg/dL (80-131); Hemoglobin A1C 6.2 % Hgb (4.8-6.0)
[2025-03-14 06:22] LABS: Alanine Aminotransferase 16 U/L (10-49); Albumin, Serum 3.8 gm/dL (3.4-4.8); Albumin/Globulin Ratio 1.5 (1.2-2.2); Alkaline Phosphatase 91 U/L (46-116); Anion Gap 12 (7-16); Aspartate Amino Transferase 17 U/L (0-34); BUN/Creatinine Ratio 18 Ratio (12-20); Bilirubin,Total 0.6 mg/dL (0.3-1.2); Blood Urea Nitrogen 14 mg/dL (9-23); Calcium 8.9 mg/dL (8.3-10.6); Calcium (Corrected) 9.1 mg/dL (8.5-10.1); Carbon Dioxide 22.7 mMol/L (20.0-31.0); Cardiac Risk Estimate 3.6 RATIO (4.0-6.7); Chloride 107 mMol/L (98-107); Cholesterol 178 mg/dL (132-200); Creatinine (Component) 0.8 mg/dL (0.6-1.3); Estimated Creatinine Clearance 92.4 mL/min (>60); Globulin 2.6 gm/dL (2.3-3.5); Glucose 155 mg/dL (74-106); HDL Cholesterol 49 mg/dL (40-60); LDL Cholesterol,Calculated 108 mg/dL (0-130); Magnesium 1.3 mg/dL (1.6-2.6); Osmolality,Calculated 286 (275-295); Phosphorous 2.9 mg/dL (2.4-5.1); Potassium 3.8 mMol/L (3.4-5.1); Sodium 142 mMol/L (136-145); Thyroid Stimulating Hormone 0.59 uIU/mL (0.55-4.78); Total Protein 6.4 gm/dL (5.7-8.2); Triglycerides 104 mg/dL (30-150); eGFR > 60 See Note
[2025-03-14] MEDS: Magnesium Sulfate 4 GM Ivpb 4 GM/50 ML BAG IV (09:38)
[2025-03-14] MEDS: LOSARTAN POTASSIUM 25 MG TABLET 50 MG PO (09:39)
[2025-03-14] MEDS: CLOTRIMAZOLE CR 1% 30 GM TUBE TOP ×2 (09:39→21:32)
[2025-03-14] MEDS: PANTOPRAZOLE 40 MG TABLET PO (09:39)
[2025-03-14] MEDS: VANCOMYCIN/WATER 1GM IVPB 200 ML IV ×2 (09:42→21:29)
--- NOTE | 2025-03-14 11:07 | ESPR_ITS ---
Documentation for date of: 03/14/25 Subjective Subjective Interval history: Patient reports no pain at the surgical site today. Denies any new bleeding, drainage, or swelling. Pain is improved. He denies fever, chills, night sweats, nausea, vomiting, headache, chest pain, shortness of breath, dizziness, or lightheadedness. He slept well overnight and ate breakfast this morning without issue. The rash on his leg appears unchanged. No issues with urination. No side effects from medications. Bowel movement status to be confirmed. Overall, patient states he is doing well this morning. Exam Vital Signs Temp Pulse Resp BP Pulse Ox O2 Del Method O2 Flow Rate 97.2 F 64 18 141/76 H 98 Room Air 4 03/14/25 08:00 03/14/25 09:39 03/14/25 08:00 03/14/25 09:39 03/14/25 08:00 03/14/25 08:00 03/13/25 16:23 Narrative Exam General: Awake, alert, no acute distress CV: RRR, no murmurs or gallops Resp: Clear to auscultation bilaterally, non-labored breathing GI: Soft, non-tender, non-distended, normal bowel sounds Neuro: AOx3, CN II-XII grossly intact Skin/Extremities: * Right knee: surgical site clean, dry, intact with Hemovac drain in place, no new bleeding or drainage * Left leg: raised, erythematous, pruritic rash unchanged from prior MSK: FROM, no tenderness with passive movement of right knee Psych: Normal mood and affect Objective Labs 03/15/25 04:44 03/15/25 04:44 Labs: Laboratory Results - last 24 hr 03/13/25 03/13/25 03/13/25 10:37 11:08 12:50 WBC 10.2 RBC 3.58 L Hgb 11.4 L Hct 32.7 L MCV 91 MCH 31.8 MCHC 34.9 RDW Std Deviation 48.6 H Plt Count 283 Neut % (Auto) 83 H Lymph % (Auto) 9 L [place] % (Auto) 6 Eos % (Auto) 1 Baso % (Auto) 1 Neut # (Auto) 8.4 H Lymph # (Auto) 0.9 L [place] # (Auto) 0.6 Eos # (Auto) 0.1 Baso # (Auto) 0.1 Immature Gran # (Auto) 0.11 H Absolute Nucleated RBC 0.00 Immature Gran % 1 H Nucleated RBC % 0 ESR 23 H PT 11.3 11.3 INR 1.0 1.0 APTT 24.1 23.7 Sodium 145 Potassium 3.4 Chloride 109 H Carbon Dioxide 21.5 Anion Gap 15 BUN 21 Creatinine 0.7 Estim Creat Clear Calc 108.1 eGFR > 60 BUN/Creatinine Ratio 30 H Glucose [address] Glu mg/dL Hemoglobin A1c Calculated Osmolality 294 Calcium 9.0 Corrected Calcium 9.0 Phosphorus Magnesium Total Bilirubin 0.4 AST 20 ALT 20 Alkaline Phosphatase 95 C-Reactive Prot, Quant < 0.5 Total Protein 6.8 Albumin 4.1 Globulin 2.7 Albumin/Globulin Ratio 1.5 Triglycerides Cholesterol LDL Cholesterol, Calc HDL Cholesterol Cholesterol/HDL Ratio TSH Ur Collection Type Clean Catch Urine Color Yellow Urine Clarity Clear Urine pH 6.0 Ur Specific [place] 1.028 Urine Protein Negative Urine Glucose (UA) Negative Urine Ketones Negative Urine Blood Negative Urine Nitrite Negative Urine Bilirubin Negative Urine Urobilinogen (Auto) Negative Ur Leukocyte Esterase Negative Urine RBC 8 H Urine WBC 3 Ur Squamous Epith Cells < 1 Urine Bacteria None Hyaline Casts < 1 03/14/25 04:57 WBC 11.8 H RBC 3.53 L Hgb 11.0 L Hct 33.5 L MCV 95 MCH 31.2 MCHC 32.8 RDW Std Deviation 49.4 H Plt Count 316 D Neut % (Auto) 89 H Lymph % (Auto) 8 L [place] % (Auto) 3 Eos % (Auto) 0 Baso % (Auto) 0 Neut # (Auto) 10.5 H Lymph # (Auto) 0.9 L [place] # (Auto) 0.3 Eos # (Auto) 0.0 Baso # (Auto) 0.0 Immature Gran # (Auto) 0.10 H Absolute Nucleated RBC 0.00 Immature Gran % 1 H Nucleated RBC % 0 ESR PT INR APTT Sodium 142 Potassium 3.8 Chloride 107 Carbon Dioxide 22.7 Anion Gap 12 BUN 14 Creatinine 0.8 Estim Creat Clear Calc 92.4 eGFR > 60 BUN/Creatinine Ratio [address] Glu mg/dL 131 Hemoglobin A1c 6.2 H Calculated Osmolality 286 Calcium 8.9 Corrected Calcium 9.1 Phosphorus 2.9 Magnesium 1.3 L Total Bilirubin 0.6 AST 17 ALT 16 Alkaline Phosphatase 91 C-Reactive Prot, Quant Total Protein 6.4 Albumin 3.8 Globulin 2.6 Albumin/Globulin Ratio 1.5 Triglycerides 104 Cholesterol 178 LDL Cholesterol, Calc 108 HDL Cholesterol 49 Cholesterol/HDL Ratio 3.6 L TSH 0.59 Ur Collection Type Urine Color Urine Clarity Urine pH Ur Specific [place] Urine Protein Urine Glucose (UA) Urine Ketones Urine Blood Urine Nitrite Urine Bilirubin Urine Urobilinogen (Auto) Ur Leukocyte Esterase Urine RBC Urine WBC Ur Squamous Epith Cells Urine Bacteria Hyaline Casts Quality Measures Quality Measures VTE prophylaxis Assessment & Plan Assessment Current Active Medications: Generic Name Dose Route Start Last Admin Trade Name Freq PRN Reason Stop Dose Admin Acetaminophen 650 mg 03/13/25 11:47 Acetaminophen 325 Mg Tablet PO 04/12/25 11:46 Q6H PRN Fever >100.4 Acetaminophen 650 mg 03/13/25 11:47 Acetaminophen 325 Mg Tablet PO 04/12/25 11:46 Q6H PRN PAIN SCALE 1-3 (mild Hydrocodone Bitart/Acetaminophen 1 tab 03/13/25 11:47 Hydrocodone/Apap 5/325 Tablet PO 03/18/25 11:46 Q4HR PRN PAIN SCALE 4-6 (Moderate Clotrimazole 0 gm 03/13/25 21:00 03/14/25 09:39 Clotrimazole Cr 1% 30 Gm Tube TOP 04/12/25 20:59 1 applicatio BID ADITI Administration Heparin Sodium (Porcine) 5,000 unit 03/13/25 14:00 03/14/25 05:05 Heparin Sod Inj 5000 Unit/Ml Vial SC 03/27/25 13:59 5,000 unit Q8HR ADITI Administration Hydralazine HCl 10 mg 03/13/25 16:54 Hydralazine Inj 20 Mg/Ml Vial IVP 04/12/25 16:53 Q6HR PRN SBP>180 Hydromorphone HCl 1 mg 03/13/25 11:42 Hydromorphone Inj 2 Mg/Ml Vial IVP 03/18/25 11:41 Q4HR PRN PAIN Protocol Piperacillin/Tazobactam/Dextrose 3.375 gm in 50 mls @ 12.5 mls/hr 03/13/25 22:00 03/14/25 05:03 Zosyn IV 03/20/25 21:59 12.5 mls/hr Q8HR ADITI Administration Vancomycin HCl 200 mls @ 120 mls/hr 03/14/25 10:00 03/14/25 09:42 Vancomycin/Water 1gm Ivpb IV 03/21/25 09:59 120 mls/hr BID@1000,2200 ADITI Administration Protocol Magnesium Sulfate 4 gm in 50 mls @ 12.5 mls/hr 03/14/25 09:08 03/14/25 09:38 Magnesium Sulfate Ivpb IV 03/14/25 13:07 12.5 mls/hr X1 ONE Administration Losartan Potassium 50 mg 03/13/25 17:00 03/14/25 09:39 Losartan Potassium 25 Mg Tablet PO 04/12/25 16:59 50 mg QDAY AD[facility] Administration Morphine Sulfate 4 mg 03/13/25 17:33 Morphine Sulf Inj 10 Mg/Ml Vial IVP 03/18/25 17:32 Q4HR PRN PAIN 7-10 Ondansetron HCl 4 mg 03/13/25 17:33 Ondansetron Inj 2 Mg/Ml Inj 2 Ml IV 04/12/25 17:32 Q6HR PRN NAUSEA OR VOMITING Pantoprazole Sodium 40 mg 03/13/25 18:00 03/14/25 09:39 Pantoprazole 40 Mg Tablet PO 04/12/25 17:59 40 mg QDAY AD[facility] Administration Pharmacy Consult 1 each 03/14/25 06:06 Vancomycin Pharmacy To Dose 1 Each Each IV 04/12/25 11:29 QDAY PRN PROTOCOL Sennosides 1 tab 03/13/25 11:47 Senna Tablet PO 04/12/25 11:46 QDAY PRN constipation Protocol Plan 64M s/p right TKA (01/22) and I&D (01/28), now with wound dehiscence, intra-op confirmed patellar tendon rupture, and purulent drainage, s/p OR debridement, component exchange, and tendon repair #Right Knee Wound Dehiscence/Infection s/p TKA s/p 01/22 right TKA, 01/28 I&D, now presents with wound breakdown and purulent drainage; intra-op revealed patellar tendon rupture and minimal necrotic tissue s/p OR debridement, component exchange, washout and tendon repair WBC 10.2, ESR/CRP WNL, Hgb 11.4 Knee X-ray: TKA with satisfactory alignment, no fracture; CXR: no infiltrates Pending: Wound culture, blood culture, MRSA screen Plan: * Continue IV Vancomycin and Zosyn pending culture results * Monitor drain output, daily wound checks * Ortho to follow for surgical recovery * Continue pain management as needed * Await culture results #Post-op Day 1 Status patient s/p I&D and tendon repair, clinically stable, no complaints Plan: * Encourage mobility as tolerated * PT/OT pending clearance * Monitor for systemic signs of infection * Daily labs #Possible superficial fungal infection (Tinea corporis) on left leg Rash unchanged from yesterday; large, raised, red-border rash with pruritus on left leg; similar but smaller rash on right leg Plan: * Continue topical clotrimazole * Monitor progression #Hypertension Known history, mildly elevated BP on admission (187/96), now controlled at 110/60 Plan: * Continue home Losartan 50 mg * Monitor vitals #Prediabetes Previously on Ozempic, currently not taking medication per patient not on meds; A1c resulted at 6.2% (eAG 131 mg/dL) Plan: * Monitor glucose while inpatient * Diabetic diet * Revisit outpatient management post-discharge #Hypomagnesemia Mg 1.3 Plan: * Replete with 4 g IV magnesium sulfate #History of Bilateral Knee Arthroplasties ? stable Plan: * No new concerns Health Maintenance: Disposition: Admit to floor Diet: Regular diet, consistent carb DVT prophylaxis: Changed to Eliquis 2.5 mg PO once daily per Dr. Razo GI prophylaxis: Protonix 40 mg daily Code Status: Full code ----- Plan discussed with attending physician Dr. Denisha Lewis MD PGY-1 Internal Medicine Attending Provider Attestation/Addendum I, Carmen Denny DO, attest that I was physically present for the weaver portions of the service and evaluated the patient with the resident and I reviewed and discussed the case with the resident and agree with the resident's findings and plans of care as documented above Patient seen eval this a.m. No acute events overnight. Patient underwent irrigation and debridement of infected right knee, exchange of polyethylene and repair of patellar tendon. Patient Toller procedure well. Dressing is clean dry and intact. Minimal drainage noted from Hemovac drain. Patient denies any pain at this time. Will start patient on Eliquis 2.5 mg p.o. daily as per Ortho recommendations. Patient is to work with physical therapy. Will continue with antibiotics at this time and await knee/wound cultures.
[2025-03-14] MEDS: ACETAMINOPHEN 325 MG TABLET 650 MG PO (15:45)
[2025-03-14] MEDS: APIXABAN 2.5 MG TABLET PO (18:31)
[2025-03-15] VITALS (8 sets, daily range): BP systolic 98–156; BP diastolic 58–93; PULSE 52–76; RESP 17–97; TEMP 36.1–36.5; O2SAT 94–99; BMI 14.0
[2025-03-15] MEDS: HYDROcodone/APAP 5/325 TABLET 1 TAB PO ×4 (00:32→19:25)
[2025-03-15] MEDS: PIPER/TAZO 3.375 GM PREMIX 3.375 GM/50 ML BAG IV ×2 (05:00→13:39)
[2025-03-15 05:21] LABS: Basophils # (Auto) 0.0 Thou/mm3 (0.0-0.2); Basophils % (Auto) 0 % (0-2.5); Eosinophils # (Auto) 0.1 Thou/mm3 (0.0-0.5); Eosinophils % (Auto) 1 % (0-10); Hematocrit 32.4 % (41.0-53.0); Hemoglobin 10.9 g/dL (13.5-16.0); Immature Granulocytes Auto 0.14 Thou/mm3 (0.00-0.00); Lymphocytes # (Auto) 1.7 Thou/mm3 (1.0-4.8); Lymphocytes % (Auto) 15 % (10-50); Mean Corpuscular HGB Conc 33.6 g/dl (31.0-37.0); Mean Corpuscular Hemoglobin 32.2 pg (25.0-35.0); Mean Corpuscular Volume 96 fL (80-100); Monocytes # (Auto) 0.9 Thou/mm3 (0.0-0.8); Monocytes % (Auto) 8 % (0-12); Neutrophils # (Auto) 8.5 Thou/mm3 (1.8-7.7); Neutrophils % (Auto) 75 % (37-80); Nucleated Red Blood Cell # 0.02 Thou/mm3 (0.00-0.00); Nucleated Red Blood Cell % 0 /100 WBC (0); Platelet Count 347 Thou/mm3 (140-440); RDW Standard Deviation 51.6 fL (35.1-43.9); Red Blood Count 3.38 Miln/mm3 (4.50-5.90); White Blood Count 11.2 Thou/mm3 (3.8-10.6)
[2025-03-15 06:11] LABS: Alanine Aminotransferase 13 U/L (10-49); Albumin, Serum 3.6 gm/dL (3.4-4.8); Albumin/Globulin Ratio 1.5 (1.2-2.2); Alkaline Phosphatase 80 U/L (46-116); Anion Gap 10 (7-16); Aspartate Amino Transferase 19 U/L (0-34); BUN/Creatinine Ratio 21 Ratio (12-20); Bilirubin,Total 0.4 mg/dL (0.3-1.2); Blood Urea Nitrogen 17 mg/dL (9-23); Calcium 8.6 mg/dL (8.3-10.6); Calcium (Corrected) 8.9 mg/dL (8.5-10.1); Carbon Dioxide 22.6 mMol/L (20.0-31.0); Chloride 109 mMol/L (98-107); Creatinine (Component) 0.8 mg/dL (0.6-1.3); Estimated Creatinine Clearance 92.4 mL/min (>60); Globulin 2.4 gm/dL (2.3-3.5); Glucose 100 mg/dL (74-106); Magnesium 1.8 mg/dL (1.6-2.6); Osmolality,Calculated 284 (275-295); Phosphorous 2.9 mg/dL (2.4-5.1); Potassium 3.9 mMol/L (3.4-5.1); Sodium 142 mMol/L (136-145); Total Protein 6.0 gm/dL (5.7-8.2); eGFR > 60 See Note
[2025-03-15] MEDS: PANTOPRAZOLE 40 MG TABLET PO (08:34)
[2025-03-15] MEDS: LOSARTAN POTASSIUM 25 MG TABLET 50 MG PO (08:34)
[2025-03-15] MEDS: APIXABAN 2.5 MG TABLET PO (08:34)
[2025-03-15] MEDS: CLOTRIMAZOLE CR 1% 30 GM TUBE TOP ×2 (08:36→21:18)
[2025-03-15 09:37] LABS: Vancomycin,Trough 16.2 mcg/mL (5.0-10.0)
[2025-03-15] MEDS: Magnesium Sulfate 4 GM Ivpb 4 GM/50 ML BAG IV (09:37)
[2025-03-15] MEDS: VANCOMYCIN/NS 750 MG IVPB 750 MG/150 ML BAG 120 MG IV (10:24)
--- NOTE | 2025-03-15 10:26 | CHAP ---
Patient was visited by the Spiritual Care Volunteer who prayed for them. (Volunteer was in the hospital from 10:05-10:26)
[2025-03-15] MEDS: cefTRIAXone/D5w 2gm 2 GM/50 ML BAG IV (15:37)
--- NOTE | 2025-03-15 16:12 | ESPR_ITS ---
<Statement entered by Daniel Hart MD - 03/15/25 21:49> I discussed and supervised with the business analytics intern physician who took care of this patient. I personally saw and examined the patient. I agree with most of the assessment and plan. Disclaimer: Despite multiple revisions, due to the dictation software being used, the document bellow may not be free of grammatical errors including phonetic/typographic errors. However, this does not deter from our commitment to providing health care in the patient's best interest in mind. Plan of care discussed with attending Physician Dr. Denisha Hart MD PGY-3 Documentation for date of: 03/15/25 Subjective Subjective Interval history: No overnight events. Evaluated at bedside. Pt ambulatroy to restroom. PICC line insertion planned for tomorrow. Plan to discharge home with Rocephin 2g QD for 6 weeks. Orthro ok with removal of drain at wound change tomorrow morning. Exam Vital Signs Temp Pulse Resp BP Pulse Ox O2 Del Method O2 Flow Rate 97 F 62 17 129/83 95 Room Air 4 03/15/25 12:00 03/15/25 12:00 03/15/25 12:00 03/15/25 12:00 03/15/25 12:00 03/15/25 12:00 03/13/25 16:23 Narrative Exam General: Awake, alert, no acute distress CV: RRR, no murmurs or gallops Resp: Clear to auscultation bilaterally, non-labored breathing GI: Soft, non-tender, non-distended, normal bowel sounds Skin/Extremities: * Right knee: surgical site clean, dry, intact with Hemovac drain in place, no new bleeding or drainage * Left leg: raised, erythematous, pruritic rash unchanged from prior MSK: FROM, no tenderness with passive movement of right knee Psych: Normal mood and affect Objective Labs 03/16/25 04:34 03/16/25 04:34 Labs: Laboratory Results - last 24 hr 03/15/25 03/15/25 04:44 08:10 WBC 11.2 H RBC 3.38 L Hgb 10.9 L Hct 32.4 L MCV 96 MCH 32.2 MCHC 33.6 RDW Std Deviation 51.6 H Plt Count 347 D Neut % (Auto) 75 Lymph % (Auto) 15 [place] % (Auto) 8 Eos % (Auto) 1 Baso % (Auto) 0 Neut # (Auto) 8.5 H Lymph # (Auto) 1.7 [place] # (Auto) 0.9 H Eos # (Auto) 0.1 Baso # (Auto) 0.0 Immature Gran # (Auto) 0.14 H Absolute Nucleated RBC 0.02 H Immature Gran % 1 H Nucleated RBC % 0 Sodium 142 Potassium 3.9 Chloride 109 H Carbon Dioxide 22.6 Anion Gap 10 BUN 17 Creatinine 0.8 Estim Creat Clear Calc 92.4 eGFR > 60 BUN/Creatinine Ratio 21 H Glucose 100 D Calculated Osmolality 284 Calcium 8.6 Corrected Calcium 8.9 Phosphorus 2.9 Magnesium 1.8 Total Bilirubin 0.4 AST 19 ALT 13 Alkaline Phosphatase 80 Total Protein 6.0 Albumin 3.6 Globulin 2.4 Albumin/Globulin Ratio 1.5 Vancomycin Trough 16.2 H Quality Measures Quality Measures VTE prophylaxis Assessment & Plan Assessment Current Active Medications: Generic Name Dose Route Start Last Admin Trade Name Freq PRN Reason Stop Dose Admin Acetaminophen 650 mg 03/13/25 11:47 Acetaminophen 325 Mg Tablet PO 04/12/25 11:46 Q6H PRN Fever >100.4 Acetaminophen 650 mg 03/13/25 11:47 03/14/25 15:45 Acetaminophen 325 Mg Tablet PO 04/12/25 11:46 650 mg Q6H PRN Administration PAIN SCALE 1-3 (mild Hydrocodone Bitart/Acetaminophen 1 tab 03/13/25 11:47 03/15/25 09:37 Hydrocodone/Apap 5/325 Tablet PO 03/18/25 11:46 1 tab Q4HR PRN Administration PAIN SCALE 4-6 (Moderate Apixaban 2.5 mg 03/14/25 19:15 03/15/25 08:34 Apixaban 2.5 Mg Tablet PO 04/13/25 19:14 2.5 mg QDAY ADITI Administration Protocol Clotrimazole 0 gm 03/13/25 21:00 03/15/25 08:36 Clotrimazole Cr 1% 30 Gm Tube TOP 04/12/25 20:59 1 applicatio BID ADITI Administration Hydralazine HCl 10 mg 03/13/25 16:54 Hydralazine Inj 20 Mg/Ml Vial IVP 04/12/25 16:53 Q6HR PRN SBP>180 Ceftriaxone Sodium/Dextrose 2 gm in 50 mls @ 100 mls/hr 03/15/25 15:15 03/15/25 15:37 Rocephin/D5w 2gm IV 03/22/25 15:14 100 mls/hr QDAY@1400 ADITI Administration Losartan Potassium 50 mg 03/13/25 17:00 03/15/25 08:34 Losartan Potassium 25 Mg Tablet PO 04/12/25 16:59 50 mg QDAY ADITI Administration Morphine Sulfate 4 mg 03/13/25 17:33 Morphine Sulf Inj 10 Mg/Ml Vial IVP 03/18/25 17:32 Q4HR PRN PAIN 7-10 Ondansetron HCl 4 mg 03/13/25 17:33 Ondansetron Inj 2 Mg/Ml Inj 2 Ml IV 04/12/25 17:32 Q6HR PRN NAUSEA OR VOMITING Pantoprazole Sodium 40 mg 03/13/25 18:00 03/15/25 08:34 Pantoprazole 40 Mg Tablet PO 04/12/25 17:59 40 mg QDAY ADITI Administration Sennosides 1 tab 03/13/25 11:47 Senna Tablet PO 04/12/25 11:46 QDAY PRN constipation Protocol Plan 64M s/p right TKA (01/22) and I&D (01/28), now with wound dehiscence, intra-op confirmed patellar tendon rupture, and purulent drainage, s/p OR debridement, component exchange, and tendon repair #Right Knee Wound Dehiscence/Infection s/p TKA s/p 01/22 right TKA, 01/28 I&D, now presents with wound breakdown and purulent drainage; intra-op revealed patellar tendon rupture and minimal necrotic tissue s/p OR debridement, component exchange, washout and tendon repair WBC 10.2, ESR/CRP WNL, Hgb 11.4 Knee X-ray: TKA with satisfactory alignment, no fracture; CXR: no infiltrates Pending: Wound culture, blood culture, MRSA screen Plan: * IV Vancomycin and Zosyn discontinued, start Rocephin 2g * PICC line insertion planned for tomorrow morning * Orthro okay with drain removal during wound change tomorrow morning * Monitor drain output, daily wound checks * Ortho to follow for surgical recovery * Continue pain management as needed * Await final culture results #Post-op Day 1 Status patient s/p I&D and tendon repair, clinically stable, no complaints Plan: * Encourage mobility as tolerated * PT/OT pending clearance * Monitor for systemic signs of infection * Daily labs #Possible superficial fungal infection (Tinea corporis) on left leg Rash unchanged from yesterday; large, raised, red-border rash with pruritus on left leg; similar but smaller rash on right leg Plan: * Continue topical clotrimazole * Monitor progression #Hypertension Known history, mildly elevated BP on admission (187/96), now controlled at 110/60 Plan: * Continue home Losartan 50 mg * Monitor vitals #Prediabetes Previously on Ozempic, currently not taking medication per patient not on meds; A1c resulted at 6.2% (eAG 131 mg/dL) Plan: * Monitor glucose while inpatient * Diabetic diet * Revisit outpatient management post-discharge #Hypomagnesemia Mg 1.3 Plan: * Replete with 4 g IV magnesium sulfate #History of Bilateral Knee Arthroplasties ? stable Plan: * No new concerns Health Maintenance: Disposition: Admit to floor Diet: Regular diet, consistent carb DVT prophylaxis: Changed to Eliquis 2.5 mg PO once daily per Dr. Razo GI prophylaxis: Protonix 40 mg daily Code Status: Full code ----- Case discussed with my senior resident Dr. Hart Case discussed with my attending Dr. Denisha Crook DO PGY 1 Attending Provider Attestation/Addendum Carmen Boone DO, attest that I was physically present for the weaver portions of the service and evaluated the patient with the resident and I reviewed and discussed the case with the resident and agree with the resident's findings and plans of care as documented above Patient seen and eval this a.m. No acute events overnight. Patient reports some pain, but relieved with pain medication. Pending physical therapy evaluation today. Cultures show no organisms from wound culture and blood cultures have been no growth to date x [address] PICC line tomorrow. Case was discussed with surgery over the phone and agrees with plan. Plan for dressing change in a.m. and removal of Hemovac drain. Will place patient on Rocephin 2 g daily IV for 6 weeks for prosthetic joint infection.
[2025-03-16] VITALS (9 sets, daily range): BP systolic 99–149; BP diastolic 57–91; PULSE 63–95; RESP 15–97; TEMP 36.1–36.9; O2SAT 96–99; BMI 32.4
[2025-03-16] MEDS: HYDROcodone/APAP 5/325 TABLET 1 TAB PO ×4 (00:11→19:45)
[2025-03-16 05:31] LABS: Basophils # (Auto) 0.1 Thou/mm3 (0.0-0.2); Basophils % (Auto) 1 % (0-2.5); Eosinophils # (Auto) 0.4 Thou/mm3 (0.0-0.5); Eosinophils % (Auto) 4 % (0-10); Hematocrit 35.8 % (41.0-53.0); Hemoglobin 11.4 g/dL (13.5-16.0); Immature Granulocytes Auto 0.23 Thou/mm3 (0.00-0.00); Lymphocytes # (Auto) 1.8 Thou/mm3 (1.0-4.8); Lymphocytes % (Auto) 20 % (10-50); Mean Corpuscular HGB Conc 31.8 g/dl (31.0-37.0); Mean Corpuscular Hemoglobin 32.2 pg (25.0-35.0); Mean Corpuscular Volume 101 fL (80-100); Monocytes # (Auto) 0.8 Thou/mm3 (0.0-0.8); Monocytes % (Auto) 9 % (0-12); Neutrophils # (Auto) 5.8 Thou/mm3 (1.8-7.7); Neutrophils % (Auto) 64 % (37-80); Nucleated Red Blood Cell # 0.02 Thou/mm3 (0.00-0.00); Nucleated Red Blood Cell % 0 /100 WBC (0); Platelet Count 265 Thou/mm3 (140-440); RDW Standard Deviation 55.7 fL (35.1-43.9); Red Blood Count 3.54 Miln/mm3 (4.50-5.90); White Blood Count 9.1 Thou/mm3 (3.8-10.6)
[2025-03-16 05:46] LABS: Alanine Aminotransferase 13 U/L (10-49); Albumin, Serum 3.5 gm/dL (3.4-4.8); Albumin/Globulin Ratio 1.5 (1.2-2.2); Alkaline Phosphatase 89 U/L (46-116); Anion Gap 11 (7-16); Aspartate Amino Transferase 17 U/L (0-34); BUN/Creatinine Ratio 23 Ratio (12-20); Bilirubin,Total 0.3 mg/dL (0.3-1.2); Blood Urea Nitrogen 14 mg/dL (9-23); Calcium 8.6 mg/dL (8.3-10.6); Calcium (Corrected) 9.0 mg/dL (8.5-10.1); Carbon Dioxide 22.7 mMol/L (20.0-31.0); Chloride 109 mMol/L (98-107); Creatinine (Component) 0.6 mg/dL (0.6-1.3); Estimated Creatinine Clearance 123.1 mL/min (>60); Globulin 2.3 gm/dL (2.3-3.5); Glucose 99 mg/dL (74-106); Magnesium 1.7 mg/dL (1.6-2.6); Osmolality,Calculated 285 (275-295); Phosphorous 3.2 mg/dL (2.4-5.1); Potassium 3.9 mMol/L (3.4-5.1); Sodium 143 mMol/L (136-145); Total Protein 5.8 gm/dL (5.7-8.2); eGFR > 60 See Note
[2025-03-16] MEDS: Magnesium Sulfate 2 GM Ivpb 2 GM/50 ML BAG IV (09:28)
[2025-03-16] MEDS: APIXABAN 2.5 MG TABLET PO (09:29)
[2025-03-16] MEDS: PANTOPRAZOLE 40 MG TABLET PO (09:29)
[2025-03-16] MEDS: LOSARTAN POTASSIUM 25 MG TABLET 50 MG PO (09:36)
--- NOTE | 2025-03-16 10:13 | ESPR_ITS ---
<Statement entered by Epifanio Pollard MD - 03/16/25 15:54> Patient seen and examined at bedside. I discussed and supervised with the copywriting intern physician who took care of this patient. I personally saw and examined the patient. I agree with most of the assessment and plan. Patient doing well, ambulating without difficulty. Plan to place PICC line, DC on home health for IV Rocepin until 04/24. Ortho in agreement with current plan. Plan of care discussed with attending Dr. Denny. Epifanio Pollard MD PGY-2 Documentation for date of: 03/16/25 Subjective Subjective Interval history: Patient reports feeling better today. Knee feels fine overall with only mild pain; no new drainage, swelling, or redness noted. Drain remains in place. He denies fever, chills, night sweats, nausea, or vomiting. He has been able to walk to the restroom and back without difficulty or discomfort. No chest pain, shortness of breath, or dizziness. Urinating normally. PICC line not yet placed as of this morning. Patient was informed of possible discharge today with home health and continued IV antibiotics, and he is agreeable to the plan. Update: Patient's PICC line will be placed tomorrow and home health has been approved but not set up. So DC tomorrow. Exam Vital Signs Temp Pulse Resp BP Pulse Ox O2 Del Method O2 Flow Rate 98.4 F 71 16 134/85 H 97 Room Air 4 03/16/25 07:55 03/16/25 09:36 03/16/25 07:55 03/16/25 09:36 03/16/25 07:55 03/16/25 04:00 03/13/25 16:23 Narrative Exam General: Awake, alert, no acute distress CV: RRR, no murmurs or gallops Resp: Clear to auscultation bilaterally, non-labored breathing GI: Soft, non-tender, non-distended, normal bowel sounds Skin/Extremities: * Right knee: surgical site clean, dry, intact with Hemovac drain in place, no new bleeding or drainage * Left leg: raised, erythematous, pruritic rash improved slightly from prior MSK: FROM, no tenderness with passive movement of right knee Psych: Normal mood and affect Objective Labs 03/17/25 04:46 03/17/25 04:46 Labs: Laboratory Results - last 24 hr 03/16/25 04:34 WBC 9.1 RBC 3.54 L Hgb 11.4 L Hct 35.8 L MCV 101 H MCH 32.2 MCHC 31.8 RDW Std Deviation 55.7 H Plt Count 265 D Neut % (Auto) 64 Lymph % (Auto) 20 [place] % (Auto) 9 Eos % (Auto) 4 Baso % (Auto) 1 Neut # (Auto) 5.8 Lymph # (Auto) 1.8 [place] # (Auto) 0.8 Eos # (Auto) 0.4 Baso # (Auto) 0.1 Immature Gran # (Auto) 0.23 H Absolute Nucleated RBC 0.02 H Immature Gran % 3 H Nucleated RBC % 0 Sodium 143 Potassium 3.9 Chloride 109 H Carbon Dioxide 22.7 Anion Gap 11 BUN 14 Creatinine 0.6 Estim Creat Clear Calc 123.1 eGFR > 60 BUN/Creatinine Ratio 23 H Glucose 99 Calculated Osmolality 285 Calcium 8.6 Corrected Calcium 9.0 Phosphorus 3.2 Magnesium 1.7 Total Bilirubin 0.3 AST 17 ALT 13 Alkaline Phosphatase 89 Total Protein 5.8 Albumin 3.5 Globulin 2.3 Albumin/Globulin Ratio 1.5 Quality Measures Quality Measures VTE prophylaxis Assessment & Plan Assessment Current Active Medications: Generic Name Dose Route Start Last Admin Trade Name Freq PRN Reason Stop Dose Admin Acetaminophen 650 mg 03/13/25 11:47 Acetaminophen 325 Mg Tablet PO 04/12/25 11:46 Q6H PRN Fever >100.4 Acetaminophen 650 mg 03/13/25 11:47 03/14/25 15:45 Acetaminophen 325 Mg Tablet PO 04/12/25 11:46 650 mg Q6H PRN Administration PAIN SCALE 1-3 (mild Hydrocodone Bitart/Acetaminophen 1 tab 03/13/25 11:47 03/16/25 05:21 Hydrocodone/Apap 5/325 Tablet PO 03/18/25 11:46 1 tab Q4HR PRN Administration PAIN SCALE 4-6 (Moderate Apixaban 2.5 mg 03/14/25 19:15 03/16/25 09:29 Apixaban 2.5 Mg Tablet PO 04/13/25 19:14 2.5 mg QDAY ADITI Administration Protocol Clotrimazole 0 gm 03/13/25 21:00 03/16/25 09:36 Clotrimazole Cr 1% 30 Gm Tube TOP 04/12/25 20:59 Not Given BID ADITI Hydralazine HCl 10 mg 03/13/25 16:54 Hydralazine Inj 20 Mg/Ml Vial IVP 04/12/25 16:53 Q6HR PRN SBP>180 Ceftriaxone Sodium/Dextrose 2 gm in 50 mls @ 100 mls/hr 03/15/25 15:15 03/15/25 15:37 Rocephin/D5w 2gm IV 03/22/25 15:14 100 mls/hr QDAY@1400 ADITI Administration Losartan Potassium 50 mg 03/13/25 17:00 03/16/25 09:36 Losartan Potassium 25 Mg Tablet PO 04/12/25 16:59 50 mg QDAY ADITI Administration Morphine Sulfate 4 mg 03/13/25 17:33 Morphine Sulf Inj 10 Mg/Ml Vial IVP 03/18/25 17:32 Q4HR PRN PAIN 7-10 Ondansetron HCl 4 mg 03/13/25 17:33 Ondansetron Inj 2 Mg/Ml Inj 2 Ml IV 04/12/25 17:32 Q6HR PRN NAUSEA OR VOMITING Pantoprazole Sodium 40 mg 03/13/25 18:00 03/16/25 09:29 Pantoprazole 40 Mg Tablet PO 04/12/25 17:59 40 mg QDAY ADITI Administration Sennosides 1 tab 03/13/25 11:47 Senna Tablet PO 04/12/25 11:46 QDAY PRN constipation Protocol Plan 64M s/p right TKA (01/22) and I&D (01/28), now s/p revision with patellar tendon repair for wound dehiscence and purulent drainage, improving clinically, afebrile, ambulating, tolerating diet, awaiting PICC placement for planned discharge with 6-week IV ceftriaxone. #Right Knee Wound Dehiscence/Infection s/p TKA s/p OR debridement, component exchange, and tendon repair; wound dry, no erythema or drainage, mild pain only, drain still in place WBC stable at 10.2, Hgb 11.4, cultures all negative, MRSA screen negative Knee X-ray ? satisfactory alignment; CXR ? no infiltrate Plan: * Continue Rocephin 2g IV QD, tomorrow via PICC line when placed (anticipated last dose 04/24/2025) * PICC line placement pending (tomorrow) * Drain removal planned with wound care * Ortho to follow * Pain control PRN * Monitor wound for any signs of worsening #Post-op Day 3 Status clinically stable, mobile without assistance Plan: * Encourage continued ambulation * Monitor vitals and labs * Evaluate for safe discharge once PICC placed #Superficial Fungal Rash red-bordered pruritic rash on left leg, improved from admission Plan: * Continue clotrimazole * Reassess need for oral antifungal if no improvement #Hypertension Controlled on Losartan Plan: * Continue Losartan 50 mg * Monitor BP #Prediabetes Not on medication, A1c 6.2% (eAG 131) Plan: * Monitor glucose * Continue consistent carb diet * Revisit at PCP follow-up #Hypomagnesemia Mg trended up to 1.7 from 1.3 Plan: * Replete with 2g IV magnesium sulfate today #History of Bilateral Knee Arthroplasties ? stable Plan: * No new concerns Health Maintenance Disposition: Awaiting PICC and discharge readiness Diet: Regular, consistent carb DVT prophylaxis: Eliquis 2.5 mg PO daily GI prophylaxis: Continue Protonix 40 mg daily Code Status: Full code ----- Plan discussed with attending physician Dr. Denny and senior resident Dr. Sudarshan MD PGY-1 Internal Medicine Attending Provider Attestation/Addendum Carmen Boone DO, attest that I was physically present for the weaver portions of the service and evaluated the patient with the resident and I reviewed and discussed the case with the resident and agree with the resident's findings and plans of care as documented above Patient seen and eval this a.m. He has no acute complaints at this time. He states that he has pain in his knee, but controlled with pain medication. Pending PICC line placement that way to be done tomorrow. Will have nurse do wound dressing and remove Hemovac drain. Pending home health delivery of IV antibiotics. Once PICC line is placed and antibiotics are sent to home, anticipate discharge within the next 24 hours. He is otherwise stable and afebrile.
--- NOTE | 2025-03-16 10:13 | CHAP ---
Patient expressed gratitude for visit and prayer.
[2025-03-16] MEDS: CLOTRIMAZOLE CR 1% 30 GM TUBE TOP ×2 (10:25→22:28)
--- NOTE | 2025-03-16 12:33 | PC.OT ---
SS met with patient at bedside to discuss discharge plan and inform him he will be needing IV ABX. Patient reported that his friend Philly Frank [phone].will be administering the IV ABX. Patient reports his PCP is [facility] and last appointment was a month ago.
[2025-03-16] MEDS: cefTRIAXone/D5w 2gm 2 GM/50 ML BAG IV (14:05)
--- NOTE | 2025-03-16 14:44 | PC.SS ---
Addendum entered by Devi Alvarado 03/16/25 15:03: SS follow up note; SS contacted patient's friend Philly Stewart to verify home address: [address] in [place]. Original Note: SS follow up note; Patient is pending a PIC-Line possibly tomorrow. Getting established with [facility]. Patient will discharge home when medically cleared.
--- NOTE | 2025-03-16 16:35 | PC.CC ---
[facility] accepted and booked. Still waiting for PICC line insertion. Physical address [address] was provided to both [facility] and [facility].
--- NOTE | 2025-03-16 21:29 | PC.NURSE ---
called Dr. 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 Continue patient's diet.
[2025-03-17] VITALS: BP 93/57; PULSE 82; RESP 17; TEMP 36.7; O2SAT 96
[2025-03-17 04:00] VITALS: BP 119/72; PULSE 78; RESP 18; TEMP 36.5; O2SAT 94
[2025-03-17] MEDS: HYDROcodone/APAP 5/325 TABLET 1 TAB PO ×3 (04:32→17:41)
[2025-03-17 06:05] LABS: Basophils # (Auto) 0.1 Thou/mm3 (0.0-0.2); Basophils % (Auto) 1 % (0-2.5); Eosinophils # (Auto) 0.4 Thou/mm3 (0.0-0.5); Eosinophils % (Auto) 5 % (0-10); Hematocrit 35.1 % (41.0-53.0); Hemoglobin 11.3 g/dL (13.5-16.0); Immature Granulocytes Auto 0.24 Thou/mm3 (0.00-0.00); Lymphocytes # (Auto) 1.7 Thou/mm3 (1.0-4.8); Lymphocytes % (Auto) 19 % (10-50); Mean Corpuscular HGB Conc 32.2 g/dl (31.0-37.0); Mean Corpuscular Hemoglobin 31.8 pg (25.0-35.0); Mean Corpuscular Volume 99 fL (80-100); Monocytes # (Auto) 0.6 Thou/mm3 (0.0-0.8); Monocytes % (Auto) 7 % (0-12); Neutrophils # (Auto) 5.9 Thou/mm3 (1.8-7.7); Neutrophils % (Auto) 66 % (37-80); Nucleated Red Blood Cell # 0.03 Thou/mm3 (0.00-0.00); Nucleated Red Blood Cell % 0 /100 WBC (0); Platelet Count 280 Thou/mm3 (140-440); RDW Standard Deviation 52.6 fL (35.1-43.9); Red Blood Count 3.55 Miln/mm3 (4.50-5.90); White Blood Count 8.9 Thou/mm3 (3.8-10.6)
[2025-03-17 06:18] LABS: INR 1.0 (0.9-1.3); Prothrombin Time 11.0 Seconds (9.0-12.2)
[2025-03-17 06:31] LABS: Alanine Aminotransferase 15 U/L (10-49); Albumin, Serum 3.7 gm/dL (3.4-4.8); Albumin/Globulin Ratio 1.5 (1.2-2.2); Alkaline Phosphatase 84 U/L (46-116); Anion Gap 11 (7-16); Aspartate Amino Transferase 18 U/L (0-34); BUN/Creatinine Ratio 27 Ratio (12-20); Bilirubin,Total 0.4 mg/dL (0.3-1.2); Blood Urea Nitrogen 16 mg/dL (9-23); Calcium 8.6 mg/dL (8.3-10.6); Calcium (Corrected) 8.8 mg/dL (8.5-10.1); Carbon Dioxide 23.6 mMol/L (20.0-31.0); Chloride 106 mMol/L (98-107); Creatinine (Component) 0.6 mg/dL (0.6-1.3); Estimated Creatinine Clearance 123.1 mL/min (>60); Globulin 2.5 gm/dL (2.3-3.5); Glucose 113 mg/dL (74-106); Magnesium 1.5 mg/dL (1.6-2.6); Osmolality,Calculated 283 (275-295); Phosphorous 3.5 mg/dL (2.4-5.1); Potassium 3.6 mMol/L (3.4-5.1); Sodium 141 mMol/L (136-145); Total Protein 6.2 gm/dL (5.7-8.2); eGFR > 60 See Note
[2025-03-17 07:40] VITALS: BP 146/74; PULSE 83; RESP 18; TEMP 36.2; O2SAT 95
[2025-03-17 08:59] VITALS: BP 146/74; PULSE 83
[2025-03-17] MEDS: PANTOPRAZOLE 40 MG TABLET PO (08:59)
[2025-03-17] MEDS: APIXABAN 2.5 MG TABLET PO (08:59)
[2025-03-17] MEDS: Magnesium Sulfate 4 GM Ivpb 4 GM/50 ML BAG IV (08:59)
[2025-03-17] MEDS: LOSARTAN POTASSIUM 25 MG TABLET 50 MG PO (08:59)
[2025-03-17] MEDS: CLOTRIMAZOLE CR 1% 30 GM TUBE TOP (09:00)
--- NOTE | 2025-03-17 09:00 | XR_ITS ---
Examination: Ultrasound-guided needle placement right basilic vein. Dual-lumen central line placement (PICC line). Fluoroscopy AP chest, portable, single view Exam date and time:March 17, 2025 1500 hours INDICATIONS: Need for long-term intravenous antibiotic therapy A timeout was completed verifying correct patient, procedure, site, positioning Informed consent provided Technique: The patient's site was prepped and draped in sterile fashion. Maximum Sterile Barrier Technique used including cap, mask, sterile gown, sterile gloves, and sterile full body drape. If ultrasound technique used: sterile gel and sterile probe covers. Hand Hygiene performed using proper scrub, soap and water, or alcohol-based hand rub. Ultrasound utilized to confirm patency of the right basilic vein Utilizing fluoroscopic guidance successful 21-gauge needle puncture into the right basilic vein. Ultrasound images recorded and stored. 5 cc 1% lidocaine administered for local anesthetic. Successful micropuncture with a 21-gauge needle is performed. 0.18 wire guide is then introduced into the SVC under fluoroscopic guidance. Dual-lumen catheter dilator is then introduced, followed by the catheter in the SVC and proper position under fluoroscopic guidance. Successful aspiration of blood and flushing with heparinized saline is then performed in the 2 venous limbs. The catheter sutured in place. Findings: Under fluoroscopy, the tip of the catheter is in good position in the vena cava. Portable chest x-ray, post line placement is ordered. Estimated blood loss 3 cc The patient tolerated the procedure well and was in stable and satisfactory condition at completion of the procedure Impression: Successful ultrasound-guided needle placement right basilic vein Successful placement of dual lumen central line, percutaneous Fluoroscopy 0.4 minute radiation dose 11.01 mg a one spot fluoroscopic chest film. AP chest completion procedure demonstrates satisfactory position central line. May use central line.
--- NOTE | 2025-03-17 10:50 | PC.CC ---
Addendum entered by Yolette Milan RN 03/17/25 13:25: Start of care date with [facility] is 03/18/2025. Pt can be discharged. Pending picc line insertion. Original Note: Anjali Disla from [facility] responded on [employer] that delivery will be made today. Pending SOC from [facility].
[2025-03-17 12:00] VITALS: BP 106/72; PULSE 83; RESP 18; TEMP 36.3; O2SAT 95
[2025-03-17] MEDS: cefTRIAXone/D5w 2gm 2 GM/50 ML BAG IV (13:06)
--- NOTE | 2025-03-17 13:45 | ESDS_ITS ---
<Statement entered by Carmen Denny DO - 03/18/25 08:47> I, Carmen Denny DO, attest that I was physically present for the weaver portions of the service and evaluated the patient with the resident and I reviewed and discussed the case with the resident and agree with the resident's findings and plans of care as documented above <Statement entered by Epifanio Pollard MD - 03/17/25 18:30> Patient seen and examined at bedside. I discussed and supervised with the information technology intern physician who took care of this patient. I personally saw and examined the patient. I agree with most of the assessment and plan. Plan of care discussed with attending Dr. Denny. Epifanio Pollard MD PGY-2 Planned Discharge Date 03/17/25 DS: Providers Provider Date of admission: 03/13/25 11:22 Primary care physician: Physician No Primary/Family Admitting Provider: Carmen Denny DO Attending Provider on Admission: Carmen Denny DO Consults: 03/13/25 11:20 Consult to Orthopedic Stat Comment: Consulting Provider: Keo Razo 03/14/25 16:27 Referral Physical Therapy Routine Comment: PT to mobilize. Both legs full weight bear Physician Instructions: Mobilize full weight bearing Attending Provider on DC: RESIDENT Kristen Discharging Provider: RESIDENT Kristen DS: Diagnosis Problem List Completed Was Problem List Reviewed/Reconciled?: Yes Hospital Course Hospital Course Hospital course: The patient is a 64-year-old male with a history of hypertension and prediabetes who was admitted with right knee wound dehiscence and purulent drainage approximately two weeks after undergoing a right total knee arthroplasty (TKA) on 01/22/2025. He was evaluated in the ED and taken to the operating room for irrigation and debridement, exchange of the polyethylene insert, and repair of a patellar tendon rupture, which was found intraoperatively. Post-operatively, he remained clinically stable with no fever, hemodynamic instability, or systemic signs of infection. His wound appeared clean and dry with minimal tenderness and no new drainage throughout the admission. Ortho followed daily and approved drain removal on hospital day 3. He was initially treated with empiric IV vancomycin and Zosyn, which were later discontinued following negative blood, wound, and MRSA cultures. Antibiotics were narrowed to ceftriaxone 2g IV daily, with a planned 6-week course. PICC line placement was arranged for outpatient delivery of ceftriaxone, and Home Health services were coordinated. Throughout his stay, he remained afebrile, ambulated independently, and tolerated oral intake well. His pruritic rash on the left leg remained unchanged and was managed with topical clotrimazole. His blood pressure was well controlled on home Losartan. Hypomagnesemia noted on admission improved with IV supplementation. He remained agreeable with the care plan and was discharged in stable condition with a PICC line and Home Health for IV Rocephin, with the last planned dose on 04/24/2025. Patient was counseled on the risks of bleeding, fall related injuries, and signs of serious bleeding while on Eliquis; he verbalized understanding and agreed to take precautions at home. Diagnoses during admission: #Right Knee Wound Dehiscence Status Post TKA #Patellar Tendon Rupture Status Post Repair #Status Post Right Knee Component Exchange #Post operative Infection Rule Out #Superficial Fungal Infection Left Leg #Hypertension #Prediabetes #Hypomagnesemia Discharge Plans: You will need 2g Rocpehin once a day until April 24 to complete course and continue taking pain medications as needed You have been started on the following medications: -Reedy 5 as needed for pain, every 6 hours, up to 4 pills in a day MAX -Eliquis 2.5 mg twice daily, last day to take on March 25 Take home medications as prescribed Follow up with your PCP as outpatient within a week Follow up with your orthopedics, Dr Razo 03/19 at 10:00. Call the office to make this appointment In case of emergency call 911 or come back to the ED ----- Plan discussed with attending physician Dr. Denny and senior resident Dr. Sudarshan MD PGY-1 Internal Medicine Time Spent with Patient Time attestation: Total time spent providing and/or coordinating discharge services: Time spent: Greater than 30 minutes Home Health Home Health Referral Orders: 03/15/25 14:57 Home Health Referral Routine Reason For Exam: Joint infection Home-Bound The patient must either because of illness or injury, need the aid of supportive devices such as crutches, canes, wheelchairs, and walkers; the use of special transportation; or the assistance of another person in order to leave their place of residence; OR have a condition such that leaving his or her home is medically contraindicated. In addition, the patient also meets the following criteria: patient is normally unable to leave the home and leaving home requires considerable taxing effort. Addendum to Home Health Certification Practitioner's Certification: I certify that the patient has been under my care in the hospital and the care of attending physician (see below). We had a onii-eh-rdic encounter on (see date below). My clinical findings indicate that the patient is home bound per the above criteria and the Home Health Services noted in these orders are medically necessary. The primary reason for the yeeo-zk-nyyf encounter is related to the fact that the patient requires home health services. Date Certifying [id number] Physician Encounter: 03/13/25 Physician's Name who will Assume Oversight for Services: Annie Kirkpatrick Physician's Phone No.who will Assume Oversight for Service: [id number] [employer] ENGINEERING PROFESSOR - Community Resources: No PT to Evaluate: Yes PT to evaluate and provide a treatmnet plan to increase patient's mobility and strength. Wound Care: Yes Home Health RN - Wound Care Order: dressing change IV Therapy: Yes: Weekly CBC, ESR, CRP and renal panel IV Medication: Ceftriaxone IV Dose: 2g IV Frequency: daily IV Stop Date: 03/24/25 Discontinue PICC Line Once Treatment Complete: Yes RN Safety Evaluation: Yes RN to evaluate and create a plan of care that will produce positive outcomes. Palliative Treatment: No Palliative treatment and evaluate the need for hospice. Home Health Aide - Personal Care: Yes Home Health Aide to assist with any ADL's. Exam Vital Signs Temp Pulse Resp BP Pulse Ox O2 Del Method O2 Flow Rate 97.3 F 83 18 106/72 95 Room Air 4 03/17/25 12:03/17/25 12:03/17/25 12:03/17/25 12:03/17/25 12:03/17/25 12:03/13/25 16:23 Narrative Exam Physical Exam at Discharge: General: Alert, NAD, ambulating independently CV: RRR, no murmurs or gallops Resp: Clear to auscultation bilaterally GI: Soft, non-tender, non-distended Neuro: AOx3, no focal deficits Skin/Extremities: * Right knee surgical site clean, dry, intact, drain removed * Left leg with improving erythematous rash than on admission, no signs of superinfection MSK: Full range of motion, ambulating without assistance Psych: Appropriate mood and affect Discharge Plan Plan Patient Disposition: Home w/HOME HEALTH Patient condition on transfer: Stable Care Plan Goals: You will need 2g Rocpehin once a day until April 24 to complete course and continue taking pain medications as needed You have been started on the following medications: -Reedy 5 as needed for pain, every 6 hours, up to 4 pills in a day MAX -Eliquis 2.5 mg twice daily, last day to take on March 25 Take home medications as prescribed Follow up with your PCP as outpatient within a week Follow up with your orthopedics, Dr Razo 03/19 at 10:00. Call the office to make this appointment In case of emergency call 911 or come back to the ED Prescriptions/Referrals Prescriptions/Med Rec: New hydrocodone-acetaminophen 5-325 mg tablet 1 tab PO Q6H MDD 4 PRN (Reason: pain) 3 Days Qty: 12 0RF Eliquis 2.5 mg tablet 2.5 mg PO BID 8 Days Qty: 16 0RF Continued losartan-hydrochlorothiazide 100-25 mg tablet 1 tab PO DAILY naproxen 375 mg tablet 375 mg PO 3XD Patient Comments: Take 1 tablet by mouth three times a day Discontinued clindamycin HCl 300 mg capsule 300 mg PO 3XD Patient Comments: Take 1 capsule by mouth three times a day for 10 days cephalexin 500 mg capsule 500 mg PO 4XD Referrals: No Primary/Family,Physician [Primary Care Provider] - Keo Razo MD [Physician] - Patient/Caregiver Discharge Instructions Print Language: Danish Stand Alone Forms: Kiley Award Info., Patient Portal Info Letter Discharge Order Discharge Orders: Discharge (Routine); Ordered 03/17/25 Ordered By: Leilani Lewis Quality Discharge Quality Measures VTE prophylaxis
--- NOTE | 2025-03-17 14:08 | PC.NURSE ---
Patient off the floor for PICC line insertion.
--- NOTE | 2025-03-17 16:25 | PC.SS ---
SS follow up note; SS contacted Angel transfer nurse to inform her that patient was getting a pic line at the time and that after procedure patient will discharge today. Angel informed SS that Jarrett would be following patient tomorrow. SS attempted to meet with patient at bedside however patient was not in the room. SS updated patient's nurse Debi.
--- NOTE | 2025-03-18 07:29 | CHAP ---
Patient was visited by a Spiritual Care Volunteer on 03/17/2025 between 0900 and 1100 and received comfort, encouragement, and/or prayer.
--- NOTE | 2025-03-19 11:22 | PC.CC ---
1115 Discharge summary and picc line summary sent to [facility] as requested on 03/18/25 for ordered infusions.
== END 2025-03-17 18:28 | disposition home health service (06) | DRG 793 ==
LOC: SERX 10:56 → SERHOLD 12:00 → S3SX 17:22
PROVIDERS: Orthopaedic Surgery; Admitting Provider Internal Medicine; Emergency Provider Family Medicine; Visit Provider Internal Medicine
PROC: 0SPC09Z Removal of Liner from Right Knee Joint, Open Approach (ICD-10-PCS; principal; 2025-03-13 15:00)
DX: T81.30XA Disruption of wound, unspecified, initial encounter (principal); L03.115 Cellulitis of right lower limb; I10 Essential (primary) hypertension; E83.42 Hypomagnesemia; L29.9 Pruritus, unspecified; B36.9 Superficial mycosis, unspecified; Y83.1 Surgical operation with implant of artificial internal device as the cause of abnormal reaction of the patient, or of later complication, without mention of misadventure at the time of the procedure; Z79.01 Long term (current) use of anticoagulants; R73.03 Prediabetes; T84.53XA Infection and inflammatory reaction due to internal right knee prosthesis, initial encounter
CPT/HCPCS: 36415; 71045; 73562; 80053; 80061; 80202; 81001; 83036; 83735; 84100; 84443; 85025; 85610; 85652; 85730; 86140; 87040; 87070; 87081; 87205; 93005; 96365; 97162; A4217; A4649; C1776; C1894; J0131; J0689; J0696; J1100; J1580; J1644; J2250; J2405; J2543; J2704; J2710; J2765; J2795; J3010; J3370; J3372; J3475; J3490; J7030; J7050; J7999; A9270; J1596

== ENCOUNTER → 2025-03-30 | Outpatient (CLI) | payer MEDICAID, SELFPAY ==
[2025-03-30 16:04] LABS: B-Type Natriuretic Peptide 66 pg/mL (0-100)
[2025-03-30 16:05] LABS: Alanine Aminotransferase 40 U/L (10-49); Albumin, Serum 4.1 gm/dL (3.4-4.8); Albumin/Globulin Ratio 1.5 (1.2-2.2); Alkaline Phosphatase 68 U/L (46-116); Anion Gap 14 (7-16); Aspartate Amino Transferase 38 U/L (0-34); BUN/Creatinine Ratio 8 Ratio (12-20); Bilirubin,Total 0.4 mg/dL (0.3-1.2); Blood Urea Nitrogen 19 mg/dL (9-23); Calcium 9.7 mg/dL (8.3-10.6); Calcium (Corrected) 9.7 mg/dL (8.5-10.1); Carbon Dioxide 21.7 mMol/L (20.0-31.0); Chloride 106 mMol/L (98-107); Creatinine (Component) 2.5 mg/dL (0.6-1.3); Globulin 2.7 gm/dL (2.3-3.5); Glucose 158 mg/dL (74-106); Osmolality,Calculated 288 (275-295); Potassium 3.6 mMol/L (3.4-5.1); Sodium 142 mMol/L (136-145); Total Protein 6.8 gm/dL (5.7-8.2); eGFR 28 See Note
== END | disposition home or self-care (01) ==
PROVIDERS: PCP Internal Medicine; Referring Provider Internal Medicine; Visit Provider Internal Medicine
DX: R60.0 Localized edema (principal)
CPT/HCPCS: 36415; 80053; 83880

== ENCOUNTER 2025-03-31 12:14 | Emergency (ER) | payer MEDICAID, SELFPAY ==
[2025-03-31 12:16] VITALS: BMI 34.3
[2025-03-31 13:28] VITALS: BP 134/93; PULSE 103; RESP 18; TEMP 37.2; O2SAT 96
--- NOTE | 2025-03-31 13:55 | PD.EDRME ---
Rapid Medical Screening Exam RME Arrival date/time: 03/31/25 12:14 Chief Complaint: General Adult/Misc Complain Vital signs: Vital Signs Temperature 98.9 F 03/31/25 13:28 Pulse Rate 103 H 03/31/25 13:28 Respiratory Rate 18 03/31/25 13:28 Blood Pressure 134/93 H 03/31/25 13:28 Pulse Oximetry (%) 96 03/31/25 13:28 Oxygen Delivery Method Room Air 03/31/25 13:28 Pulse ox room air is 96% Vital signs reviewed by provider: Yes RME Narrative: Sent by primary care for rule out renal failure. Complains of swollen ankles that began 2 to 3 days ago.
[2025-03-31 14:29] LABS: Basophils # (Auto) 0.0 Thou/mm3 (0.0-0.2); Basophils % (Auto) 1 % (0-2.5); Eosinophils # (Auto) 0.4 Thou/mm3 (0.0-0.5); Eosinophils % (Auto) 5 % (0-10); Hematocrit 33.7 % (41.0-53.0); Hemoglobin 11.0 g/dL (13.5-16.0); Immature Granulocytes Auto 0.05 Thou/mm3 (0.00-0.00); Lymphocytes # (Auto) 1.2 Thou/mm3 (1.0-4.8); Lymphocytes % (Auto) 14 % (10-50); Mean Corpuscular HGB Conc 32.6 g/dl (31.0-37.0); Mean Corpuscular Hemoglobin 30.6 pg (25.0-35.0); Mean Corpuscular Volume 94 fL (80-100); Monocytes # (Auto) 0.9 Thou/mm3 (0.0-0.8); Monocytes % (Auto) 11 % (0-12); Neutrophils # (Auto) 5.9 Thou/mm3 (1.8-7.7); Neutrophils % (Auto) 69 % (37-80); Nucleated Red Blood Cell # 0.00 Thou/mm3 (0.00-0.00); Nucleated Red Blood Cell % 0 /100 WBC (0); Platelet Count 447 Thou/mm3 (140-440); RDW Standard Deviation 44.2 fL (35.1-43.9); Red Blood Count 3.60 Miln/mm3 (4.50-5.90); White Blood Count 8.6 Thou/mm3 (3.8-10.6)
[2025-03-31 15:01] LABS: Alanine Aminotransferase 48 U/L (10-49); Albumin, Serum 4.2 gm/dL (3.4-4.8); Albumin/Globulin Ratio 1.6 (1.2-2.2); Alkaline Phosphatase 66 U/L (46-116); Anion Gap 12 (7-16); Aspartate Amino Transferase 48 U/L (0-34); BUN/Creatinine Ratio 10 Ratio (12-20); Bilirubin,Total 0.5 mg/dL (0.3-1.2); Blood Urea Nitrogen 15 mg/dL (9-23); Calcium 10.0 mg/dL (8.3-10.6); Calcium (Corrected) 10.0 mg/dL (8.5-10.1); Carbon Dioxide 22.9 mMol/L (20.0-31.0); Chloride 105 mMol/L (98-107); Creatinine (Component) 1.5 mg/dL (0.6-1.3); Estimated Creatinine Clearance 50.5 mL/min (>60); Globulin 2.7 gm/dL (2.3-3.5); Glucose 133 mg/dL (74-106); LDH (Lactate Dehydrogenase) 303 U/L (120-246); Lipase 31 U/L (12-53); Osmolality,Calculated 282 (275-295); Potassium 3.4 mMol/L (3.4-5.1); Procalcitonin 0.14 ng/ml (0.0-0.49); Sodium 140 mMol/L (136-145); Total Protein 6.9 gm/dL (5.7-8.2); eGFR 52 See Note
--- NOTE | 2025-03-31 19:08 | XR_ITS ---
Examination: AP chest single view TECHNIQUE: AP portable semiupright chest single view Date and time: March 31, 2025 2113 hours INDICATIONS: Shortness of breath today. FINDINGS: Enlargement left ventricle Mild vascular congestion Suspicious for early pneumonia in the right upper lobe and right middle lobe No pulmonary edema IMPRESSION: Mild vascular congestion Suspicious for pneumonia in the right upper lobe and right middle lobe
--- NOTE | 2025-03-31 19:10 | EKG_ITS ---
[facility] Test Date: 2025-03-31 Pat Name: MAXINE SUAREZ Department: Room: - Gender: Male Student Records Specialist: : [id number] Requested By: Rick Rice Order Number: [id number] Reading MD: Rick Rice Measurements Intervals [place] Rate: 80 P: 23 LA: 164 QRS: -15 QRSD: 94 T: 9 QT: 382 QTc: 441 Interpretive Statements SINUS RHYTHM VOLTAGE CRITERIA FOR LVH [MEETS CRITERIA IN ONE OF: R(aVL), S(V1), R(V5), R(V5/V6)+S(V1)] Compared to ECG 03/13/2025 10:19:35 T-wave abnormality no longer present /store/S0/[id number].pdf
[2025-03-31 19:12] VITALS: BP 152/86; PULSE 78; RESP 20; TEMP 36.7; O2SAT 97
[2025-03-31 19:16] LABS: Collection Type, Urine Clean Catch; Squamous Epithelial Cell,Urine 0 /hpf (0-5)
[2025-03-31 19:22] LABS: Bilirubin,Urine Negative (Negative); Blood,Urine Negative (Negative); Clarity,Urine Clear (Clear/Hazy); Color,Urine Yellow (Lt Yel-Yel); Glucose, Urine Negative (Negative); Hyaline Casts,Urine < 1 /hpf (0-1); Ketones,Urine Negative (Negative); Leukocyte Esterase,Urine Negative (Negative); Nitrite,Urine Negative (Negative); PH,Urine 5.5 (5.0-7.0); Protein,Urine Trace (Neg - Trace); RBC,Urine 2 /hpf (0-3); Specific Gravity,Urine 1.021 (1.001-1.035); Urobilinogen,Urine 2.0 mg/dL (0.0-1.0); WBC,Urine 5 /hpf (0-5)
[2025-03-31 19:26] LABS: Sperm,Urine Present
--- NOTE | 2025-03-31 19:36 | PD.EDADULT ---
ED General RME/HPI General Chief complaint: General Adult/Misc Complain Stated complaint: BLE SWELLING; GFR 28 Time Seen by Provider: 03/31/25 18:12 Arrival date/time: 03/31/25 12:14 CC: Worsening kidney function HPI patient presents the ER with swelling in the lower ankles he has no other specific complaints however patient's primary care provider was called over stating the patient has significant worsening of his renal function yesterday and today. Patient denies chest pain shortness of breath difficulty breathing headache nausea vomiting or diarrhea. No other complaints RME / HPI RME / HPI narrative: Sent by primary care for rule out renal failure. Complains of swollen ankles that began 2 to 3 days ago. Related Data Home Medications ?Medication ?Instructions ?Recorded ?Confirmed losartan 100 1 tab PO DAILY 01/20/25 03/13/25 mg-hydrochlorothiazide 25 mg tablet naproxen 375 mg tablet 375 mg PO 3XD 03/13/25 03/13/25 Allergies Allergy/AdvReac Type Severity Reaction Status Date / Time naproxen Allergy Intermediate SWELLING Verified 03/31/25 12:23 IN FEET Review of Systems Review of Systems Narrative Review of Systems: GEN: No fever, no chills, no weight loss EYES: No discharge, no visual changes, no pain HEENT: No ear pain, no congestion, no sore throat PULM: No shortness of breath, no cough, no congestion CV: No chest pain, no dyspnea on exertion, no palpitations GI: No nausea, no vomiting, no diarrhea, no pain, no constipation : No frequency, no urgency, no dysuria MUSC/SKEL: No joint pain, no back pain SKIN: No rash PSYCH: No hallucinations, no depression HEME/LYMPH: No easy bleeding or bruising tendencies NEURO: No weakness, no headache Past Medical History Past Medical History NEUROLOGIC: Negative Neurological Disorders or Seizures CARDIAC: Positive Cardiac Disorders and Hypertension; Negative Congestive Heart Failure RESPIRATORY: Positive Pneumonia; Negative Chronic Obstructive Pulmonary Disease (COPD) GASTROINTESTINAL: Positive Gastrointestinal Disorders and Obesity; Negative Hepatitis GENITOURINARY: Negative Genitourinary Disorders or Renal Disease MUSCULOSKELETAL: Positive Musculoskeletal Disorders and Arthritis ENT: Positive Cataracts ENDOCRINE: Positive Endocrine Disorders and Diabetes Mellitus Type 2; Negative Diabetes Mellitus Type 1 HEMATOLOGIC: Negative Blood Disorders OTHER HISTORY: Positive Chicken Pox and Measles; Negative Hospitalization, Autoimmune Disease, Shingles, Blood Transfusions, Blood Transfusion Reaction, Anesthesia Reactions or Cancer Family History FAMILY HISTORY: Positive Family Cardiac Disorders; Negative Family Psychiatric Problems, Family Respiratory Disorders, Family Gastrointestinal Problems, Family Cancer, Family Surgery or Family Anesthesia Reaction Surgical History SURGICAL: Positive Arthroscopy Social History SMOKING STATUS: Never smoker SUBSTANCE USE: does not use ED Exam Narrative Physical exam: [General: Not in any acute distress Head normocephalic HEENT: Within acceptable limits Neck is supple nontender Chest equal chest rise nontender to palpation Respiratory: Clear to auscultation no wheezes crackles or rubs CV: Rate rhythm is regular no murmurs rubs or clicks Abdomen is distended secondary to body habitus soft nontender no masses positive bowel sounds all 4 quadrants Back: No CVA tenderness no spinous process tenderness from cervical spine thoracic and lumbar spine Skin: Intact no petechiae rash induration ulceration or crepitus Extremities: Moving all extremity against resistance cap refill less than 2 seconds neurosensory intact. Bilateral lower extremity edema extending from the upper portion of the ankle to the dorsum of the foot, pitting in nature. Neuro: Awake alert oriented x3 Glascow coma 15 no focal deficits] Course Course Course Narrative: At 2030, the patient spontaneous void was 125 cc of yellow urine postvoid residual was 10 mL. Lengthy in discussion with the patient and family member shows the patient has had a PICC line for dehiscence of a arthroplasty of the right knee, the PICC line was removed by home health nurse on the orders of the orthopod Dr. Molina, And the patient has been placed on Keflex. Quality Measures none Orders Category Date Time Status EKG (ED ONLY) *Do not use* NOW Care 03/31/25 19:10 Completed Miscellaneous Nursing Order NOW Care 03/31/25 20:19 Active EKG (ED Only) Stat Exams 03/31/25 19:10 Draft XR chest 1V Stat Exams 03/31/25 19:08 Ordered BMP [Basic Metabolic Panel] Stat Lab 03/31/25 20:45 Completed CBC Stat Lab 03/31/25 14:07 Completed CMP [Comprehensive Metabolic Panel] Stat Lab 03/31/25 21:12 Ordered Comprehensive Metabolic Panel Stat Lab 03/31/25 14:07 Completed LDH (Lactate Dehydrogenase) Stat Lab 03/31/25 14:07 Completed Lipase Stat Lab 03/31/25 14:07 Completed Procalcitonin Stat Lab 03/31/25 14:07 Completed Urinalysis Stat Lab 03/31/25 19:04 Completed Vital Signs Vital signs: Vital Signs Temperature 98.9 F 03/31/25 13:28 Pulse Rate 103 H 03/31/25 13:28 Respiratory Rate 18 03/31/25 13:28 Blood Pressure 134/93 H 03/31/25 13:28 Pulse Oximetry (%) 96 03/31/25 13:28 Oxygen Delivery Method Room Air 03/31/25 13:28 Discharge Plan Plan Patient Disposition: HOME (Self Care) Patient condition on transfer: Stable Prescriptions/Referrals Prescriptions/Med Rec: No Action losartan-hydrochlorothiazide 100-25 mg tablet 1 tab PO DAILY naproxen 375 mg tablet 375 mg PO 3XD Patient Comments: Take 1 tablet by mouth three times a day Referrals: Annie Kirkpatrick, [facility] [Primary Care Provider] - In 1 week Problem List Clinical Impression: Impaired renal function Patient/Caregiver Discharge Instructions Other Activity Instructions:: Your renal impairment has improved significantly and is normalized please follow-up with your primary care and with the orthopedic surgeon as stated for your right knee arthroplasty. Print Language: Israeli Stand Alone Forms: [employer] Award Info., Work/School Release, Patient Portal Info Letter PA/LIVAN Supervising Physician PA/LIVAN Supervising Physician: Marce Can ENP [facility] Clinical Information Provided by patient Medical Records Reviewed [facility] Meds/Rx Considered, not Ordered None Labs/Rad/Tests considered, not Ordered None Chronic Illness/Social Conditions Add or document further as needed: Hypertension EKG EKG Interpretation narrative: EKG performed at 192 shows a ventricular rate of 80 WI interval 164 QRS of 94 QTc of 418 is a sinus rhythm. Lab Interpretation Lab(s) interpretation(s): CBC shows no leukocytosis H&H 11 and 33. Platelets at 447. CMP shows no significant electrolyte imbalances currently the creatinine is 1.5 with a BUN of 15. Note: Yesterday creatinine was 2.5 with a normal BUN as well No transaminitis or T. bili elevation. LDH at 330. Urine is negative Repeat BMP shows BUN of 13 creatinine of 1.3 which is significant proved and at this time I feel the patient has no renal impairment we will discharge the patient home.
[2025-03-31 21:15] LABS: Anion Gap 12 (7-16); BUN/Creatinine Ratio 10 Ratio (12-20); Blood Urea Nitrogen 13 mg/dL (9-23); Calcium 10.1 mg/dL (8.3-10.6); Carbon Dioxide 23.5 mMol/L (20.0-31.0); Chloride 106 mMol/L (98-107); Creatinine (Component) 1.3 mg/dL (0.6-1.3); Estimated Creatinine Clearance 58.3 mL/min (>60); Glucose 115 mg/dL (74-106); Osmolality,Calculated 282 (275-295); Potassium 3.4 mMol/L (3.4-5.1); Sodium 141 mMol/L (136-145); eGFR > 60 See Note
[2025-03-31 21:44] VITALS: BP 170/108; PULSE 79; RESP 20; O2SAT 98
== END 2025-03-31 21:55 | disposition home or self-care (01) ==
PROVIDERS: Physician Assistant; Registered Nurse General Practice; Emergency Provider Emergency Medicine; PCP Nurse Practitioner Family
DX: N28.9 Disorder of kidney and ureter, unspecified (principal); R06.02 Shortness of breath; R94.31 Abnormal electrocardiogram [ECG] [EKG]; I10 Essential (primary) hypertension
CPT/HCPCS: 36415; 71045; 80048; 80053; 81001; 83615; 83690; 84145; 85025; 93005; 99283

== ENCOUNTER 2025-04-10 06:40 | Inpatient (IN) | payer MEDICAID, SELFPAY ==
[2025-04-10] VITALS (13 sets, daily range): BP systolic 111–158; BP diastolic 74–96; PULSE 78–97; RESP 16–20; TEMP 36.3–37.3; O2SAT 92–99; BMI 34.3
--- NOTE | 2025-04-10 07:11 | XR_ITS ---
Examination: Knee, right , 3 views Technique: Knee AP, lateral, oblique 3 views Date and time of exam: April 10, 2025, 0714 hours INDICATIONS: Status post right knee replacement with redness swelling and pain involving the knee. FINDINGS: Total knee arthroplasty. Satisfactory alignment Soft tissue defect which appears to traverse the patellar tendon Partially effusion No alysia cortical bone destruction No fracture IMPRESSION: Total right knee arthroplasty with no fracture or cortical bone destruction Possible soft tissue defect traversing the patellar tendon, clinical correlation advised. Large knee effusion, amenable to aspiration as clinically warranted
--- NOTE | 2025-04-10 07:13 | PD.EDRME ---
Rapid Medical Screening Exam E Arrival date/time: 04/10/25 06:40 CC: Right knee pain HPI referred by Dr. Razo for poor healing x 1 month concern for knee abscess/septic arthritis. Seen in Dr. Razo's office. Chief Complaint: General Adult/Misc Complain Time Seen by Provider: 04/10/25 06:58 Vital signs: Vital Signs Temperature 98.8 F 04/10/25 07:06 Pulse Rate 97 04/10/25 07:06 Respiratory Rate 18 04/10/25 07:06 Blood Pressure 126/85 H 04/10/25 07:06 Pulse Oximetry (%) 98 04/10/25 07:06 Oxygen Delivery Method Room Air 04/10/25 07:06
--- NOTE | 2025-04-10 07:38 | PC.NURSE ---
Patient from [facility] and taken to room 17 s/p right knee replacement on 03/13/25, c/o non healing surgical wound to right knee with drainage and swelling. Patient had knee replacement by Dr. Razo, patient noted to have small amount of serous sanguaneous drainage with moderate pitting edema to right foot, + pulses to bilateral pedal pulses L>R, Dr. Russo at bedside, new orders received, at bedside.
--- NOTE | 2025-04-10 07:39 | EDNOTE_ITS ---
ED Extremity Problem RME/HPI General Chief complaint: General Adult/Misc Complain Stated complaint: INFECTION R KNEE Time Seen by Provider: 04/10/25 06:58 Arrival date/time: 04/10/25 06:40 RME / HPI RME / HPI Narrative: 04/10/25 06:40 CC: Right knee pain HPI referred by Dr. Razo for poor healing x 1 month concern for knee abscess/septic arthritis. Seen in Dr. Razo's office. DR. BALTAZAR MAIN ED EVALUATION: 64-year-old male presents to the Emergency Department accompanied by his for evaluation of bleeding and concern for infection at the right knee surgical site following recent right knee replacement on 03/13/[address] Razo. Patient reports persistent drainage since surgery, with worsening drainage over the past 4 days. Also endorses associated right knee pain. Denies fever, chills, nausea, vomiting, or any other systemic symptoms. No history of vomiting, incontinence, or chest pain. Patient was referred to the ED by Dr. Razo for further evaluation. Related Data Home Medications ?Medication ?Instructions ?Recorded ?Confirmed losartan 100 1 tab PO DAILY 01/20/2502/24 mg-hydrochlorothiazide 25 mg tablet naproxen 375 mg tablet 375 mg PO 3XD 03/13/2503/13 Allergies Allergy/AdvReac Type Severity Reaction Status Date / Time naproxen Allergy Intermediate SWELLING Verified 04/10/25 10:17 IN FEET Review of Systems Review of Systems Systems Reviewed: All systems reviewed, normal except as documented Past Medical History Past Medical History CARDIAC: Positive Cardiac Disorders and Hypertension RESPIRATORY: Positive Pneumonia GASTROINTESTINAL: Positive Gastrointestinal Disorders and Obesity MUSCULOSKELETAL: Positive Musculoskeletal Disorders and Arthritis ENT: Positive Cataracts (bilateral) ENDOCRINE: Positive Endocrine Disorders and Diabetes Mellitus Type 2 (was on Ozempic, not anymore, pt stated prediabetes) OTHER HISTORY: Positive Chicken Pox and Measles Family History FAMILY HISTORY: Positive Family Cardiac Disorders Surgical History SURGICAL: Positive Arthroscopy (Left) Social History SMOKING STATUS: Never smoker SUBSTANCE USE: does not use ALCOHOL: Never ED Exam Narrative Physical exam: Constitutional: Awake, alert, nontoxic, no acute distress HEENT: NC, AT, EOMI Neck: Supple CV: RRR, no m/r/g Lungs: CTAB, no w/r/r, no respiratory distress. Abd: Soft, NT, NT, no HSM noted to palpation Extremities: Increased heat on the right compared to the left side; increased swelling on the right compared to the left; there is a surgical wound on the anterior right knee that appears to have delayed wound healing; there is sanguineous drainage near the right patella area with some bubbles Neuro: AAOx3, CN 2-12 GIBL, no acute neuro deficit noted. Skin: Warm, dry, intact Course Course Course Narrative: 0830h: Spoke with Ortho Dr. Marcelino regarding Patient. Request that patient have basic labs, admit to hospitalist, and he will plan for surgery of right knee for I&D this afternoon. 0834h: Spoke with hospital team regarding patient for admission. They will be down to see patient. Quality Measures none Orders Category Date Time Status COVID-19 Screening Questionnaire NOW Care 04/10/25 08:51 Active Decision to Admit X1 Care 04/10/25 08:51 Completed NPO NOW Care 04/10/25 08:51 Active Saline [Insert IV] NOW Care 04/10/25 07:11 Active Diet NPO (NOW) Diet 04/10/25 08:51 Active XR knee RT 3V Stat Exams 04/10/25 07:11 Completed CBC Stat Lab 04/10/25 07:55 Completed CMP [Comprehensive Metabolic Panel] Stat Lab 04/10/25 07:55 Completed CRP [C-Reactive Protein] Stat Lab 04/10/25 07:55 Completed PT [Prothrombin Time with INR] Stat Lab 04/10/25 07:55 Completed PTT [Partial Thromboplastin Time] Stat Lab 04/10/25 07:55 Completed Procalcitonin Stat Lab 04/10/25 07:55 Completed Sodium Chloride 0.9% 1000 ml [Ns] 1,000 ml Med 04/10/25 08:50 Active IV 100 mls/hr Vital Signs Vital signs: Vital Signs Temperature 98.8 F 04/10/25 07:06 Pulse Rate 97 04/10/25 07:06 Respiratory Rate 18 04/10/25 07:06 Blood Pressure 126/85 H 04/10/25 07:06 Pulse Oximetry (%) 98 04/10/25 07:06 Oxygen Delivery Method Room Air 04/10/25 07:06 Extremity Problem MDM Narrative MDM Narrative:: I, Tigist Iyer, am scribing for and in the presence of Dr. Baltazar. Patient data External records reviewed:: [facility] previous records Clinical information provided by:: patient and spouse Social determinants that could affect healthcare access:: none Patient has the following chronic illnesses:: Right knee replacement on 03/13/[address] Razo. How is presenting disease/condition affected by chronic disease/condition?: caused by Evaluation data The following diagnostics were reviewed and interpreted by me:: lab results and radiology exam(s) Lab and/or radiology exams considered but not ordered:: none Interpretation Summary: Procedure(s): XR knee RT 3V Accession Number(s): [id number] cc: Rick Can RESIDENTIAL SPECIALIST; Juan Pablo Deal MD~ Examination: Knee, right , 3 views Technique: Knee AP, lateral, oblique 3 views Date and time of exam: April 10, 2025, 0714 hours INDICATIONS: Status post right knee replacement with redness swelling and pain involving the knee. FINDINGS: Total knee arthroplasty. Satisfactory alignment Soft tissue defect which appears to traverse the patellar tendon Partially effusion No alysia cortical bone destruction No fracture IMPRESSION: Total right knee arthroplasty with no fracture or cortical bone destruction Possible soft tissue defect traversing the patellar tendon, clinical correlation advised. Large knee effusion, amenable to aspiration as clinically warranted Dictated By: Juan Pablo Deal MD Medications / Prescriptions Medications or Prescriptions considered but not ordered:: none Medication administrations:: Medication Administration History Acetaminophen (Acetaminophen 325 Mg Tablet) 650 mg PO Q6H PRN PRN Reason: Fever >100 or pain 1-3 Stop: 05/10/25 11:09 Dextrose (Dextrose 50%-Water Inj 50 Ml Syringe) 25 ml IV Q15MIN PRN PRN Reason: BG 50-70 responsive npo pt Stop: 05/10/25 16:52 Dextrose (Dextrose 50%-Water Inj 50 Ml Syringe) 50 ml IV Q15MIN PRN PRN Reason: BG <50 OR BG <70 & pt unresponsive Stop: 05/10/25 16:52 Fentanyl Citrate (Fentanyl Cit Inj 50 Mcg/Ml Amp 2ml) 50 mcg IVP Q5M PRN PRN Reason: PAIN SCALE 4-10(Mod-Sev Stop: 04/10/25 19:47 Glucagon (Glucagon Inj 1 Mg Vial) 1 mg IM Q15MIN PRN PRN Reason: BG <70, and no IV access Hydralazine HCl (Hydralazine Inj 20 Mg/Ml Vial) 5 mg IVP Q20M PRN PRN Reason: SEE COMMENTS Stop: 04/10/25 19:47 Hydromorphone HCl (Hydromorphone Inj 2 Mg/Ml Vial) 0.25 mg IVP Q4H PRN PRN Reason: pain 7-10 Stop: 04/15/25 11:09 Last Admin: 04/10/25 11:20 Dose: 0.25 mg Documented By: BAKARI Sodium Chloride (Ns) 1,000 mls @ 100 mls/hr IV .Q10H [facility] Stop: 05/10/25 08:49 Last Admin: 04/10/25 09:07 Dose: 100 mls/hr Documented By: MAREN Piperacillin/Tazobactam/Dextrose (Zosyn) 3.375 gm in 50 mls @ 100 mls/hr IV Q6HR [facility] Stop: 04/17/25 17:59 Promethazine HCl 12.5 mg/ (Sodium Chloride) 50.5 mls @ 2.5 mls/min IV X1 PRN PRN Reason: NAUSEA OR VOMITING Stop: 04/10/25 19:47 Insulin Human Lispro (Insulin Lispro (Admelog) 1 Unit/0.01 Ml Unit) 0 unit SC Q6HR [facility]; Protocol Stop: 05/10/25 17:59 Meperidine HCl (Meperidine Inj 50 Mg/Ml Vial) 12.5 mg IVP Q5M PRN PRN Reason: SHIVERING Stop: 04/10/25 19:47 Metoprolol Tartrate (Metoprolol Tartrate Inj 1 Mg/Ml Amp 5 Ml) 1 mg IVP Q5M PRN PRN Reason: TACHYCARDIA Stop: 04/10/25 19:47 Midazolam HCl (Midazolam Inj 1 Mg/Ml Vial 2 Ml) 1 mg IVP Q5M PRN PRN Reason: ANXIETY Stop: 04/10/25 19:47 Morphine Sulfate (Morphine Sulf Inj 10 Mg/Ml Vial) 1 mg IVP Q4HR PRN PRN Reason: Pain Scale 4-6 or breakthroug Stop: 04/15/25 11:09 Morphine Sulfate (Morphine Sulf Inj 10 Mg/Ml Vial) 2 mg IVP Q10M PRN PRN Reason: PAIN SCALE 4-10(Mod-Sev Stop: 04/10/25 19:47 Ondansetron HCl (Ondansetron Inj 2 Mg/Ml Inj 2 Ml) 4 mg IVP Q6H PRN; Protocol PRN Reason: NAUSEA OR VOMITING Stop: 05/10/25 11:09 Pharmacy Consult (Vancomycin Pharmacy To Dose 1 Each Each) 1 each IV QDAY PRN PRN Reason: CONSULT Stop: 05/10/25 11:44 Discontinued Medications Fentanyl Citrate (Fentanyl Cit Inj 50 Mcg/Ml Amp 2ml) Confirm Administered Dose 100 mcg .ROUTE .STK-MED ONE Stop: 04/10/25 16:57 Fentanyl Citrate (Fentanyl Cit Inj 50 Mcg/Ml Amp 2ml) Confirm Administered Dose 100 mcg .ROUTE .STK-MED ONE Stop: 04/10/25 17:21 Fentanyl Citrate (Fentanyl Cit Inj 50 Mcg/Ml Amp 2ml) Confirm Administered Dose 100 mcg .ROUTE .STK-MED ONE Stop: 04/10/25 17:52 Ceftriaxone Sodium 2 gm/ (Sodium Chloride) 50 mls @ 100 mls/hr IV X1 ONE Stop: 04/10/25 12:14 Last Admin: 04/10/25 12:28 Dose: Not Given Documented By: LITO Non-Admin Reason: Discontinued Ceftriaxone Sodium/Dextrose (Rocephin/D5w 2gm) 2 gm in 50 mls @ 100 mls/hr IV QDAY [facility] Stop: 04/18/25 08:59 Vancomycin HCl/Dextrose (Vancomycin/D5w 1,250 Mg Ivpb) 250 mls @ 120 mls/hr IV BID@1000,2200 [facility] Stop: 04/17/25 11:59 Last Admin: 04/10/25 12:28 Dose: Not Given Documented By: LITO Non-Admin Reason: Discontinued Lidocaine HCl (Lidocaine Inj Pf 1% 2 Ml Vial) Confirm Administered Dose 2 ml .ROUTE .STK-MED ONE Stop: 04/10/25 16:57 Metoclopramide HCl (Metoclopramide Inj 5 Mg/Ml Vial 2 Ml) Confirm Administered Dose 10 mg .ROUTE .STK-MED ONE Stop: 04/10/25 16:57 Mupirocin (Mupirocin Oint 2% 15 Gm Tube) Confirm Administered Dose 15 gm TOP .STK-MED ONE Stop: 04/10/25 17:57 Propofol (Propofol Inj 10 Mg/Ml Vial 20 Ml) Confirm Administered Dose 400 mg IV .STK-MED ONE Stop: 04/10/25 16:57 see above if any Consultations Consultation(s) initiated? (list below): Yes Consultation #1 (Physician, Specialty, Details): See under course narrative above. Diagnosis Extremity Problem Differential Diagnosis: other (surgical site infection, prosthetic joint infection, hemarthrosis) Most likely diagnosis given after review of the tests above:: Right knee infection query septic joint Admission Indicated Admission indicated?: indicated Admission Request Was there a request for admission?: Yes Admission Attestation Admission request attestation: Discussed case with [] from Hospitalist service regarding admission. Discussed patients ED course, exam findings, labs, and radiology results. The Hospitalist [agrees,declines] to accept the patient for admission. Disposition Plan Disposition Plan: Admit Discharge Plan Plan Patient Disposition: Admit Acute Care w/in Hospital Problem List Clinical Impression: Infection of right knee
[2025-04-10 08:05] LABS: Basophils # (Auto) 0.1 Thou/mm3 (0.0-0.2); Basophils % (Auto) 1 % (0-2.5); Eosinophils # (Auto) 0.4 Thou/mm3 (0.0-0.5); Eosinophils % (Auto) 5 % (0-10); Hematocrit 30.7 % (41.0-53.0); Hemoglobin 10.2 g/dL (13.5-16.0); Immature Granulocytes Auto 0.08 Thou/mm3 (0.00-0.00); Lymphocytes # (Auto) 1.5 Thou/mm3 (1.0-4.8); Lymphocytes % (Auto) 21 % (10-50); Mean Corpuscular HGB Conc 33.2 g/dl (31.0-37.0); Mean Corpuscular Hemoglobin 30.9 pg (25.0-35.0); Mean Corpuscular Volume 93 fL (80-100); Monocytes # (Auto) 0.7 Thou/mm3 (0.0-0.8); Monocytes % (Auto) 10 % (0-12); Neutrophils # (Auto) 4.5 Thou/mm3 (1.8-7.7); Neutrophils % (Auto) 62 % (37-80); Nucleated Red Blood Cell # 0.00 Thou/mm3 (0.00-0.00); Nucleated Red Blood Cell % 0 /100 WBC (0); Platelet Count 377 Thou/mm3 (140-440); RDW Standard Deviation 42.8 fL (35.1-43.9); Red Blood Count 3.30 Miln/mm3 (4.50-5.90); White Blood Count 7.3 Thou/mm3 (3.8-10.6)
[2025-04-10 08:41] LABS: INR 1.2 (0.9-1.3); Partial Thromboplastin Time 27.9 Seconds (22.0-36.0); Prothrombin Time 12.7 Seconds (9.0-12.2)
[2025-04-10 08:45] LABS: Alanine Aminotransferase 17 U/L (10-49); Albumin, Serum 3.8 gm/dL (3.4-4.8); Albumin/Globulin Ratio 1.4 (1.2-2.2); Alkaline Phosphatase 47 U/L (46-116); Anion Gap 13 (7-16); Aspartate Amino Transferase 34 U/L (0-34); BUN/Creatinine Ratio 13 Ratio (12-20); Bilirubin,Total 0.5 mg/dL (0.3-1.2); Blood Urea Nitrogen 14 mg/dL (9-23); C-Reactive Protein 3.4 mg/dL (0.0-0.9); Calcium 9.7 mg/dL (8.3-10.6); Calcium (Corrected) 9.9 mg/dL (8.5-10.1); Carbon Dioxide 23.9 mMol/L (20.0-31.0); Chloride 102 mMol/L (98-107); Creatinine (Component) 1.1 mg/dL (0.6-1.3); Estimated Creatinine Clearance 68.9 mL/min (>60); Globulin 2.8 gm/dL (2.3-3.5); Glucose 111 mg/dL (74-106); Osmolality,Calculated 279 (275-295); Potassium 3.1 mMol/L (3.4-5.1); Procalcitonin 0.16 ng/ml (0.0-0.49); Sodium 139 mMol/L (136-145); Total Protein 6.6 gm/dL (5.7-8.2); eGFR > 60 See Note
[2025-04-10] MEDS: SODIUM CHLORIDE 0.9% 1000 ML 1,000 ML 100 ML IV (09:07)
--- NOTE | 2025-04-10 09:08 | PC.NURSE ---
Dr. Dash, hospitalists at bedside to evaluate patient for admission
--- NOTE | 2025-04-10 09:10 | PC.NURSE ---
PAtient states he has been cephalexin antibiotics for wound to right knee since 03/25/25.
--- NOTE | 2025-04-10 10:28 | PC.CC ---
Derek Lindsay is a 64-year-old male admitted for Infection R Knee. Tile Setter Apprentice made contact with Pt at bedside to complete initial and discuss discharge disposition. Role and reason for the contact was explained to Pt. Demographic information was verified. Pt updated home address [address] [address]- registration was notified. Pt identified his Philly Hackett [phone] as his surrogate decision maker. Pt is independent with all ADLs but requires minimal assistance from . Pt utilizes clutches as source of DME.Pt and report Pt has access to other DME (walker) but prefers [facility]. Pt?s choice of pharmacy is [facility] [address], [place] [address] . PCP is Annie Kirkpatrick. At time of discharge patient will return home, Philly Hackett [phone] will provide transportation. Discharge Plan: Home Next of Kin: ritu Hackett [phone] PCP: Annie Kirkpatrick
[2025-04-10] MEDS: HYDROmorphone INJ 2 MG/ML VIAL 0.25 MG IVP (11:20)
--- NOTE | 2025-04-10 11:29 | ESHP_ITS ---
<Statement entered by Anay Mazariegos MD - 04/10/25 15:49> I have reviewed the note and agree with the resident's assessment & plan with exceptions as below. I have personally reviewed labs, imaging, home meds/prior records, examined the patient, formulated and discussed management plan with the IM team. Patient examined at bedside today. This is a 64-year-old male who recently underwent total knee replacement by Dr. Razo, recently admitted for possible I&D procedure in mid February sent over from Dr. Razo for further evaluation of knee. Patient reports that he was recently on Rocephin 2 g IV and was de-escalated to Keflex oral antibiotics. He has been experiencing a lot of abdominal pain and has noted pus and drainage coming out of his right knee. Knee x-ray shows large knee effusion. At this time, orthopedic surgeon sent patient over for further evaluation for possible washout procedure, arthrocentesis or I&D if needed. Patient is currently n.p.o., will give multimodal pain management. Will initiate Vancomycin and Zosyn, however will wait to administer these antibiotics until procedure is done as there is a holding order for these. Repeat hematology and chemistry in AM. Follow-up MRSA screen. Ordered wound care and referral to wound care. #Right knee effusion Anay Mazariegos, PGY-2 Internal Medicine Documentation for date of: 04/10/25 HPI History of Present Illness History of present illness: Mr. Lindsay is a [place] speaking 64 year old male with a past medical history of R knee replacement (12/2024), HTN and pre-diabetes who presented to the ED due to worsening R knee pain and drainage. Patient states that ever since his knee replacement surgery in late December, he has had serosanguinous drainage that has gotten worse in the last 4 days along with worsening pain and erythema around the knee's incision. In between that time on March 13 this year he was admitted with right knee wound dehiscence and purulent drainage approximately two weeks after undergoing the right total knee arthroplasty. He was given a PICC line for ceftriaxone outpatient which was to be taken through April 24, patient states he now has been on Cephalexin 500 mg po qd since late February. Patient was referred to the ED by Dr. Razo for further evaluation. Patient states his appetite has not been good the last week and has been having low urinary output. Patient currently denies any fever, chills, headache, chest pain, shortness of breath, nausea, vomiting, diarrhea, dysuria. Past Medical History: above Family History: n/a Surgical History: L knee surgery Social History: Denies history of smoking, denies current alcohol use, denies recreational drug use Current Medications: Losartan (unsure dosage, pending med rec), Cephalexin 500 mg Allergies: naproxen ED Course: -Initial vitals were temp 98.8 F, Pulse 97 bpm, RR 18, BP 126/85, 98%O2 on RA -Labs significant for wbc 7.3, hgb 10.2, PT 12.7, Potassium 3.1, CRP 3.4, Pro- anabella 0.16 -Imaging included R Knee XR signifcant for possible soft tissue defect traversing the patellar tendon, Large knee effusion, amenable to aspiration. -In the ED, patient was given NS IV fluids -Patient was admitted for further evaluation and management of R knee infection. Review of systems otherwise negative except what is mentioned above. Exam Vital Signs Temp Pulse Resp BP Pulse Ox O2 Del Method 98.2 F 80 18 124/74 96 Room Air 04/10/25 10:53 04/10/25 10:53 04/10/25 10:53 04/10/25 10:53 04/10/25 10:53 04/10/25 10:53 Narrative Exam General: No acute distress; A&Ox3 Skin: Warm, dry, intact, no obvious rash. HENT: NCAT, EOMI, not icteric. External ears normal. No rhinorrhea. Dry mucous membranes Cardiovascular: Regular rate and rhythm, no murmur, +S1/S2. Respiratory: Lungs CTAB GI: Soft, nontender, non-distended. No guarding or rebound tenderness. Extremities: Bilateral foot to ankle 2+ pitting edema, Bilateral ankle to knee 1+ edema; Range of motion for LE bilaterally decreased bilaterally with R side more so decreased; No R knee tenderness; R knee erythema and serosanguinous drainage present. no cyanosis, no clubbing. Extremity pulses present Neuro: No focal deficits observed. Conversant, moving all extremities. No overt cerebellar signs/incoordination. Psychiatric: Cooperative, appropriate affect. Results: Labs 04/10/25 07:55 04/10/25 07:55 Labs: Short CBC 04/10/25 Range/Units 07:55 WBC 7.3 (3.8-10.6) Thou/mm3 Hgb 10.2 L (13.5-16.0) g/dL Hct 30.7 L (41.0-53.0) % Plt Count 377 D (140-440) Thou/mm3 BMP 04/10/25 07:55 Sodium 139 Potassium 3.1 L Chloride 102 Carbon Dioxide 23.9 BUN 14 Creatinine 1.1 Glucose 111 H Calcium 9.7 Liver Function 04/10/25 Range/Units 07:55 Total Bilirubin 0.5 (0.3-1.2) mg/dL AST 34 (0-34) U/L ALT 17 (10-49) U/L Alkaline Phosphatase 47 (46-116) U/L Albumin 3.8 (3.4-4.8) gm/dL Quality Measures Quality Measures VTE prophylaxis Medications Home Medications and Allergies Home Medications ?Medication ?Instructions ?Recorded ?Confirmed ?Type losartan 100 1 tab PO DAILY 01/20/2502/24 History mg-hydrochlorothiazide 25 mg tablet naproxen 375 mg tablet 375 mg PO 3XD 03/13/2503/13 History Allergies Allergy/AdvReac Type Severity Reaction Status Date / Time naproxen Allergy Intermediate SWELLING Verified 04/10/25 10:17 IN FEET Visit Medications Acetaminophen (Acetaminophen 325 Mg Tablet) 650 mg PO Q6H PRN PRN Reason: Fever >100 or pain 1-3 Stop: 05/10/25 11:09 Hydromorphone HCl (Hydromorphone Inj 2 Mg/Ml Vial) 0.25 mg IVP Q4H PRN PRN Reason: pain 7-10 Stop: 04/15/25 11:09 Last Admin: 04/10/25 11:20 Dose: 0.25 mg Sodium Chloride (Ns) 1,000 mls @ 100 mls/hr IV .Q10H [facility] Stop: 05/10/25 08:49 Last Admin: 04/10/25 09:07 Dose: 100 mls/hr Morphine Sulfate (Morphine Sulf Inj 10 Mg/Ml Vial) 1 mg IVP Q4HR PRN PRN Reason: Pain Scale 4-6 or breakthroug Stop: 04/15/25 11:09 Ondansetron HCl (Ondansetron Inj 2 Mg/Ml Inj 2 Ml) 4 mg IVP Q6H PRN; Protocol PRN Reason: NAUSEA OR VOMITING Stop: 05/10/25 11:09 Assessment & Plan Plan Mr. Lindsay is a [place] speaking 64 year old male with a past medical history of R knee replacement (12/2024), HTN and pre-diabetes who presented to the ED due to worsening R knee pain and drainage. Patient was admitted for further evaluation and management of R knee infection. # R Prosthetic Knee Infection Patient had R knee Replacement surgery 12/2024. Hospitalized for R knee infection in 02/2025. Was on Rocephin IV, now on Cephalexin Patient's R knee has worsening drainage, pain, erythema over the last week. Patient was told to come for evaluation by Dr. Razo. -Once surgery is completed, we plan to start antibiotics Vancomycin IV qd pharmacy dosed, Zosyn 3.375 IV q6hr -Pain control with acetaminophen 650 mg po q6h, hydromorphone 0.25 mg q4h prn, morphine IV 1 mg q4hr prn -On maintenance fluids IV NS @100mls/hr -Wound Care referral ordered. #htn Patient takes losartan for blood pressure. -Will restart medication when appropriate. #Prediabetes -Glucose checks q6hr - ISS - A1c in AM Hospital Management: Disposition: Med Surg Diet: NPO GI Prophylaxis: n/a Bowel Prophylaxis: n/a DVT Prophylaxis: SCD's CODE STATUS: FULL CODE Patient plan of care was discussed with the attending physician, Dr. Denny & senior resident Dr. Delilah Dash MD PGY-1 Attending Provider Attestation/Addendum Carmen Boone DO, attest that I was physically present for the weaver portions of the service and evaluated the patient with the resident and I reviewed and discussed the case with the resident and agree with the resident's findings and plans of care as documented above Patient is a 64-year-old male with past medical history of hypertension and prediabetes, right knee wound that has status post TKA and I&D who presented to the ED with worsening purulent drainage from his right knee for the past 4 days. He reports some pain associated with ambulation. However, he denies any fevers, chills, nausea, vomiting, shortness of breath, chest pain otherwise. Patient had completed IV antibiotics with Rocephin 2 g daily for 1 month and currently on Keflex. Orthopedic surgery was called from ED who will take patient to OR today. Recommended by orthopedic surgery to hold off on antibiotics and obtain cultures first before starting any antibiotics. Surface of knee appears to be erythematous, mild tenderness to palpation, minimal drainage expressed from wound, but incision appears to have dehisced with some granulation tissue in the surrounding area. Will admit patient to [facility] for further workup and medical management of right prosthetic knee infection. X-ray of knee shows no fracture or cortical bone destruction. But possible defect traversing the patellar tendon. A large knee effusion was also noted. Patient is able to bend his knee, but with some pain elicited. Will keep patient n.p.o. at this time in anticipation surgery today. Will start patient on antibiotics after surgery. Continue with pain control as needed at this time.
--- NOTE | 2025-04-10 18:12 | SUR.PHASEI ---
received report from Dr Lopez and BROOKE [place]. Pt sedated at this time, vss, dressing CDI to right knee. weak pedal pulse to right foot. IV intact to right forearm.
--- NOTE | 2025-04-10 18:30 | SUR.PHASEI ---
pt awake, a&ox4, pt denies any pain. pt tolerating water. dressing remains cdi
--- NOTE | 2025-04-10 18:40 | SUR.PHASEI ---
pt recoverying well, vss, dressing remains CDI. pt denies any pain. report given to BROOKE Barksdale.
[2025-04-10] MEDS: MORPHINE SULF INJ 10 MG/ML VIAL 4 MG IVP (20:46)
[2025-04-10] MEDS: ACETAMINOPHEN 325 MG TABLET 650 MG PO (23:03)
[2025-04-11] VITALS: BP 113/72; PULSE 92; RESP 18; TEMP 36.6; O2SAT 94
[2025-04-11 04:00] VITALS: BP 116/85; PULSE 90; RESP 18; TEMP 36.2; O2SAT 94
[2025-04-11] MEDS: MORPHINE SULF INJ 10 MG/ML VIAL 4 MG IVP ×2 (04:49→14:57)
[2025-04-11 04:59] VITALS: BMI 33.6
[2025-04-11 05:49] LABS: Basophils # (Auto) 0.0 Thou/mm3 (0.0-0.2); Basophils % (Auto) 1 % (0-2.5); Eosinophils # (Auto) 0.4 Thou/mm3 (0.0-0.5); Eosinophils % (Auto) 5 % (0-10); Hematocrit 28.6 % (41.0-53.0); Hemoglobin 9.5 g/dL (13.5-16.0); Immature Granulocytes Auto 0.04 Thou/mm3 (0.00-0.00); Lymphocytes # (Auto) 1.3 Thou/mm3 (1.0-4.8); Lymphocytes % (Auto) 16 % (10-50); Mean Corpuscular HGB Conc 33.2 g/dl (31.0-37.0); Mean Corpuscular Hemoglobin 30.8 pg (25.0-35.0); Mean Corpuscular Volume 93 fL (80-100); Monocytes # (Auto) 0.9 Thou/mm3 (0.0-0.8); Monocytes % (Auto) 11 % (0-12); Neutrophils # (Auto) 5.3 Thou/mm3 (1.8-7.7); Neutrophils % (Auto) 66 % (37-80); Nucleated Red Blood Cell # 0.00 Thou/mm3 (0.00-0.00); Nucleated Red Blood Cell % 0 /100 WBC (0); Platelet Count 384 Thou/mm3 (140-440); RDW Standard Deviation 42.4 fL (35.1-43.9); Red Blood Count 3.08 Miln/mm3 (4.50-5.90); White Blood Count 7.9 Thou/mm3 (3.8-10.6)
[2025-04-11 06:06] LABS: Glucose Estimated Average 128 mg/dL (80-131); Hemoglobin A1C 6.1 % Hgb (4.8-6.0)
[2025-04-11 06:10] LABS: INR 1.2 (0.9-1.3); Partial Thromboplastin Time 28.1 Seconds (22.0-36.0); Prothrombin Time 12.5 Seconds (9.0-12.2)
[2025-04-11 06:43] LABS: Alanine Aminotransferase 17 U/L (10-49); Albumin, Serum 3.5 gm/dL (3.4-4.8); Albumin/Globulin Ratio 1.4 (1.2-2.2); Alkaline Phosphatase 43 U/L (46-116); Anion Gap 13 (7-16); Aspartate Amino Transferase 38 U/L (0-34); BUN/Creatinine Ratio 15 Ratio (12-20); Bilirubin,Total 0.3 mg/dL (0.3-1.2); Blood Urea Nitrogen 12 mg/dL (9-23); Calcium 9.3 mg/dL (8.3-10.6); Calcium (Corrected) 9.7 mg/dL (8.5-10.1); Carbon Dioxide 23.6 mMol/L (20.0-31.0); Chloride 104 mMol/L (98-107); Creatinine (Component) 0.8 mg/dL (0.6-1.3); Estimated Creatinine Clearance 94.0 mL/min (>60); Globulin 2.5 gm/dL (2.3-3.5); Glucose 104 mg/dL (74-106); Osmolality,Calculated 280 (275-295); Phosphorous 4.7 mg/dL (2.4-5.1); Potassium 3.0 mMol/L (3.4-5.1); Sodium 141 mMol/L (136-145); Thyroid Stimulating Hormone 5.53 uIU/mL (0.55-4.78); Total Protein 6.0 gm/dL (5.7-8.2); eGFR > 60 See Note
[2025-04-11 06:46] LABS: Magnesium 0.8 mg/dL (1.6-2.6)
[2025-04-11] MEDS: Magnesium Sulfate 4 GM Ivpb 4 GM/50 ML BAG IV (07:50)
[2025-04-11 08:00] VITALS: BP 118/87; PULSE 90; RESP 18; TEMP 36.3; O2SAT 94
[2025-04-11] MEDS: MAGNESIUM OXIDE 400 MG TABLET PO (09:35)
[2025-04-11] MEDS: CEFEPIME INJ 2 GM in SODIUM CHLORIDE 0.9% (Popper) 50 ML IV (09:35)
[2025-04-11 09:43] LABS: Free T4 (Free Thyroxine) 1.27 ng/dL (0.89-1.76)
[2025-04-11] MEDS: PIPER/TAZO 3.375 GM PREMIX 3.375 GM/50 ML BAG IV ×2 (10:55→21:32)
[2025-04-11 12:00] VITALS: BP 109/84; PULSE 93; RESP 16; TEMP 36.1; O2SAT 95
--- NOTE | 2025-04-11 13:02 | PC.NURSE ---
Addendum entered by Rebeka Cramer RN 04/11/25 16:11: 1609- Adrianna from [facility] stated pt needed HLOC per Her orthopedic doctor Original Note: HLOC transfer for Med surg Orthopaedics, DX: total knee replace infection, Dinh tendon rupture. Polyethylene exchanged and patellar tendon repaired on 03/13/2025 1250- Spoke to Adrianna at [facility] #[phone], gave all info verbally that was asked, and Faxed # [phone] over facesheet, HP/notes and knee xray report, Also provided Dr. Razo number for peer to peer [phone]- Spoke to Gertrude at [facility] [phone] - declining due to capacity, faxed [phone] facesheet over, can recheck capacity every 24 hours
[2025-04-11 13:54] LABS: Albumin, Serum 3.6 gm/dL (3.4-4.8); Anion Gap 12 (7-16); BUN/Creatinine Ratio 15 Ratio (12-20); Blood Urea Nitrogen 12 mg/dL (9-23); Calcium 9.4 mg/dL (8.3-10.6); Calcium (Corrected) 9.7 mg/dL (8.5-10.1); Carbon Dioxide 23.6 mMol/L (20.0-31.0); Chloride 102 mMol/L (98-107); Creatinine (Component) 0.8 mg/dL (0.6-1.3); Estimated Creatinine Clearance 94.0 mL/min (>60); Glucose 140 mg/dL (74-106); Magnesium 1.1 mg/dL (1.6-2.6); Osmolality,Calculated 277 (275-295); Phosphorous 3.9 mg/dL (2.4-5.1); Potassium 3.2 mMol/L (3.4-5.1); Sodium 138 mMol/L (136-145); eGFR > 60 See Note
[2025-04-11] MEDS: POTASSIUM CHL 10 mEq IVPB 10 MEQ/100 ML BAG 50 MEQ IV (14:57)
[2025-04-11 16:00] VITALS: BP 153/84; PULSE 93; RESP 18; TEMP 36.6; O2SAT 95
--- NOTE | 2025-04-11 16:02 | ESDS_ITS ---
<Statement entered by Jai Silva MD - 04/12/25 15:43> Patient seen and examined at bedside with resident. Agree with assessment and plan as dictated. Patient to be transferred to higher level of care for prosthetic joint intervention Jai Silva MD Planned Discharge Date 04/11/25 DS: Providers Provider Date of admission: 04/10/25 08:59 Primary care physician: JENNIE Tariq Admitting Provider: Carmen Denny DO Attending Provider on Admission: Carmen Denny DO Consults: 04/10/25 11:12 Referral Wound Care Routine Comment: Attending Provider on DC: Jai Silva MD Discharging Provider: Jai Silva MD DS: Diagnosis Problem List Completed Was Problem List Reviewed/Reconciled?: Yes Hospital Course Hospital Course Hospital course: Mr. Lindsay is a Mexican speaking 64 year old male with a past medical history of R knee replacement (12/2024), HTN and pre-diabetes who was admited to [facility] on 04/10/2025 for R Knee effusion s/p I and D by Dr. Razo. Pt arrived to the ED with a temperature of 98.8 F, Pulse 97 bpm, RR 18, BP 126/85, 98%O2 on RA. Labs were done and were pertinent for wbc 7.3, hgb 10.2, PT 12.7, Potassium 3.1, CRP 3.4, Pro-anabella 0.16. Imaging was done was showed R Knee XR signifcant for possible soft tissue defect traversing the patellar tendon, Large knee effusion, amenable to aspiration. Pt was given fluids in the ED, medicine was consulted and pt was admitted to the floors. Pt was seen by his Orthopedic surgeon, Dr. Razo, who performed washout and I and D procedure on 04/10/2025. Culture was collected and pt was then started on broad spectrum Zosyn and Vancomycin. It was recommended by the orthopedic surgeon to transfer for higher level of care due to history of patellar tendon rupture (03/13), I and D (02/27/2025), and infected TKR. Pt was then initiated for transfer. Discharge instructions Follow-up with your PCP within 1 week Take your medicines as prescribed Follow up with your orthopedic surgeon, Dr. Razo upon discharge Return to ED if your symptoms worsen or return Problem List: #R Prosthetic Knee effusion #Hx of Patellar tendon rupture #Hx of R TKA #Essential hypertension #Prediabetes Discharge summary was reviewed with my attending Dr. Ricardo Mazariegos, PGY-2 Time Spent with Patient Time attestation: Total time spent providing and/or coordinating discharge services: Time spent: Greater than 30 minutes Exam Vital Signs Temp Pulse Resp BP Pulse Ox O2 Del Method O2 Flow Rate 96.9 F 93 16 109/84 95 Room Air 2 04/11/25 12:00 04/11/25 12:00 04/11/25 12:00 04/11/25 12:00 04/11/25 12:00 04/11/25 12:00 04/10/25 18:27 FiO2 2 04/10/25 18:49 Narrative Exam General: No acute distress; A&Ox3 Skin: Warm, dry, intact, no obvious rash. HENT: NCAT, EOMI, not icteric. External ears normal. No rhinorrhea. Dry mucous membranes Cardiovascular: Regular rate and rhythm, no murmur, +S1/S2. Respiratory: Lungs CTAB GI: Soft, nontender, non-distended. No guarding or rebound tenderness. Extremities: Bilateral foot to ankle 2+ pitting edema, Bilateral ankle to knee 1+ edema; Range of motion for LE bilaterally decreased bilaterally with R side more so decreased; No R knee tenderness; R knee erythema and serosanguinous drainage present. no cyanosis, no clubbing. Extremity pulses present Neuro: No focal deficits observed. Conversant, moving all extremities. No overt cerebellar signs/incoordination. Psychiatric: Cooperative, appropriate affect. Discharge Plan Plan Patient Disposition: [facility] Acute Care [facility] Facility Pt Being Transferred to: Other-Specify in comment Service Needed for Transfer: Orthopedics Disposition Comment: Pending Patient condition on transfer: Stable Care Plan Goals: Discharge instructions Follow-up with your PCP within 1 week Take your medicines as prescribed Follow up with your orthopedic surgeon, Dr. Razo upon discharge Return to ED if your symptoms worsen or return Prescriptions/Referrals Prescriptions/Med Rec: Continued losartan-hydrochlorothiazide 100-25 mg tablet 1 tab PO DAILY cephalexin 500 mg capsule 500 mg PO QID Patient Comments: Take 1 capsule by mouth four times a day for 10 days Discontinued naproxen 375 mg tablet 375 mg PO 3XD Patient Comments: Take 1 tablet by mouth three times a day Referrals: Annie Kirkpatrick FNP-C [Primary Care Provider] - Keo Razo MD [Physician] - Patient/Caregiver Discharge Instructions Discharge Activity: activity as tolerated Education Materials: Knee Replace After Hospital, Knee Replace After Surgery, ED Knee Effusion Print Language: Mexican Stand Alone Forms: Kiley Award Info., Patient Portal Info Letter Quality Discharge Quality Measures VTE prophylaxis (SCDs)
--- NOTE | 2025-04-11 16:31 | XR_ITS ---
Examination: CT right knee, without contrast. 2-D sagittal reconstructions. 2-D coronal reconstructions. 3-D reconstructions. Date and time of exam:April 11, 2025, 1810 hours, compared to plain films knee April 10, 2025 INDICATIONS: Status post right knee replacement with redness swelling and pain involving the knee this week CTDI: vol (mGy):10.1 DLP: (mGycm):287 Technique: Multiple 1.25 mm axial sections of the left knee without intravenous have been obtained. 2-D sagittal and coronal reconstructions have been obtained. 3-D reconstructions have been obtained. Low dose protocols were performed. One or more of the following dose reduction techniques were used; automated exposure control, adjustment of the mA and/or KV according to patient size, use of iterative reconstruction technique. Findings: Severe osteopenia Distal femoral shaft intact Total left knee arthroplasty with satisfactory alignment There does not appear to be loosening of the prosthetic components The patella is not dislocated Large knee effusion with air densities within the effusion Soft tissue assessment is difficult with the artifacts from the orthopedic hardware The patellar tendon and quadriceps tendons are not clearly visualized Proximal tibia fibular head and neck intact There is also soft tissue swelling and air density anterior to the patellar tendon IMPRESSION: Total right knee arthroplasty with satisfactory alignment No alysia cortical bone destruction, no definite loosening of the prosthetic components Large knee effusion with air densities within the effusion Also soft tissue swelling and air densities anterior to the patellar tendon The knee effusion is amenable to fluoroscopically guided aspiration Consider ultrasound of the soft tissue anterior to the patellar tendon
[2025-04-11] MEDS: POTASSIUM CHL 10 mEq IVPB 10 MEQ/100 ML BAG 40 MEQ IV ×2 (17:44→20:26)
--- NOTE | 2025-04-11 18:01 | PC.NURSE ---
pt. down to CT, transported by [facility].
--- NOTE | 2025-04-11 18:11 | PC.NURSE ---
Spoke with Dr. Razo at 1230 and 1615 regarding operation note that it would help facilitate transfer to [facility], He stated he would put one in
--- NOTE | 2025-04-11 19:00 | ESOP_ITS ---
RE: MAXINE SUAREZ : 1960 DATE OF OPERATION: 04/10/2025 PREOPERATIVE DIAGNOSIS: Status post right total knee replacement with infection. POSTOPERATIVE DIAGNOSES: 1. Status post right total knee replacement with infection. 2. Partial rupture of the patellar tendon. PROCEDURE: Irrigation, debridement and washout. SURGEON: Keo Razo MD ANESTHESIA: General anesthesia. ANESTHESIOLOGIST: Dr. Lopez. INDICATION FOR PROCEDURE: The patient is status post right total knee replacement done about 2 months or so back. Initially, there was opening at the distal end of the scar. The patient was taken to the operating room on 02/24/2025. Irrigation and debridement was done. It did not go anything at that time. The patient did fine, but later on it opened again, and at that time, irrigation and debridement with exchange of the polyethylene was performed. There was a partial rupture of the patellar tendon, which was repaired as well. Hemovac drain was placed. No growth was present. The patient did fine for 2 weeks or so and then he started draining again. Hence, a decision was made to take him to the operating room and do the irrigation and debridement and washout. DESCRIPTION OF PROCEDURE: The patient was given general endotracheal anesthesia. Once satisfactory anesthesia was achieved, a tourniquet was placed on the right upper thigh. Following that, the part was thoroughly prepped and draped. After raising the leg for a couple of minutes, the tourniquet pressure was raised to 350 mmHg. The wound was at the distal end of the scar. The little liquid was coming out. No alysia pus was coming out as such. The wound had . The wound culture swab was obtained for aerobic, anaerobic culture sensitivity and for gram staining. The was extended proximally. Deeper dissection was carried out. Again, no alysia pus came out. The repair sutures were broken. Those broken loose sutures were taken out. The skin margin, which was infected or necrotic, was excised. There was not much necrotic tissue. Wound was inspected. Copious amount of antibiotic solution was then used to irrigate the wound. The hydrogen peroxide solution as well as Betadine iodine was used. Significant amount of fluid was used to irrigate the wound. It was noticed that there was a partial re- rupture of the patellar tendon at this point. There is no alysia pus was coming out. The wound had . Using one Prolene in interrupted fashion, mattress suture and some simple sutures were applied and wound was closed. After cleaning down with hydrogen peroxide solution, a sterile dressing was applied. The patient tolerated procedure very well. Estimated blood loss about 5-10 mL. FURTHER MANAGEMENT: I believe the patient needs to be transferred to a higher level of care because this is the third time the patient had infection done. Besides that, the patient had partial rupture of the patellar tendon and I suspect that it may re-rupture. I will advise meeting/event planner or the socially responsible investment adviser to try to refer the patient for higher level of care. DT: 16:22:50 TT: 18:42:00 Ref: [id number] - TID: [id number]
--- NOTE | 2025-04-11 19:14 | ESCONSULT_ITS ---
RE: MAXINE SUAREZ : 1960 DATE OF CONSULTATION: 04/10/2025 Thank you doctor for consulting patient, and I saw the patient on 04/10/2025 early in the morning. HISTORY OF PRESENT COMPLAINT: The patient is status post right total knee replacement done about a couple of months back. The patient developed infection in early February and incision and debridement was done on 02/24/2025. Subsequent to that, the patient was discharged home. The patient did fine, but after a few weeks, the patient redeveloped the infection, and at that time, poly exchange was done and Hemovac drain was also placed. No growth was noticed at that point. The patient was put on antibiotics. Again, the patient did fine for a period of time and then the patient came back with little discharge. The patient went to the emergency room in the machine heel sprayer of 04/10/2025 and is being admitted for further management. During the poly exchange, it was noted that the patient had a patellar tendon rupture. However, the patient denied any history of fall. PAST MEDICAL HISTORY: Well documented in my previous dictations for consult and history and physical. DRUG HISTORY: Very well documented. ALLERGIES: WELL DOCUMENTED. PHYSICAL EXAMINATION: GENERAL: Normal built person. EXTREMITIES: Right knee examination revealed well-healed scar on the proximal half; and on the distal half of the scar, there is gaping of the wound. Couple of suture threads were seen coming out through the . There is no alysia discharge of the pus present. Range of motion was not tested. RECOMMENDATIONS: The patient was advised to be admitted for further management and irrigation and debridement. The patient was explained the prognosis and also explained that I am going to irrigate and debride it and he may have to be transferred for a higher level of care and he is agreeable for that. Risk with anesthesia was explained and that includes, but not limited to reaction to anesthetic agents, cardiac arrest, and rarely, it might be fatal. Risks with operation includes infection and if that happens, the patient may need further surgical procedure. Other risks include delayed healing, wound dehiscence, etc. No guarantee is given regarding the outcome of the procedure. The patient is fully aware that this process is being done to temporize the situation. Surgery will be done today, which is 04/10/2025. DT: 16:26:35 TT: 19:01:00 Ref: [id number] - TID: [id number]
[2025-04-11 20:00] VITALS: BP 133/68; PULSE 97; RESP 18; TEMP 36.7; O2SAT 95
[2025-04-11] MEDS: POTASSIUM CHL 10 mEq IVPB 10 MEQ/100 ML BAG 70 MEQ IV (22:01)
[2025-04-12] VITALS: BP 152/92; PULSE 98; RESP 17; TEMP 36.8; O2SAT 95
[2025-04-12] MEDS: MORPHINE SULF INJ 10 MG/ML VIAL 4 MG IVP ×2 (00:19→14:42)
[2025-04-12 04:00] VITALS: BP 140/85; PULSE 90; RESP 17; TEMP 36.1; O2SAT 97
[2025-04-12] MEDS: PIPER/TAZO 3.375 GM PREMIX 3.375 GM/50 ML BAG IV ×3 (05:19→21:03)
[2025-04-12 06:22] LABS: Basophils # (Auto) 0.0 Thou/mm3 (0.0-0.2); Basophils % (Auto) 1 % (0-2.5); Eosinophils # (Auto) 0.4 Thou/mm3 (0.0-0.5); Eosinophils % (Auto) 5 % (0-10); Hematocrit 28.6 % (41.0-53.0); Hemoglobin 9.4 g/dL (13.5-16.0); Immature Granulocytes Auto 0.03 Thou/mm3 (0.00-0.00); Lymphocytes # (Auto) 1.5 Thou/mm3 (1.0-4.8); Lymphocytes % (Auto) 20 % (10-50); Mean Corpuscular HGB Conc 32.9 g/dl (31.0-37.0); Mean Corpuscular Hemoglobin 30.8 pg (25.0-35.0); Mean Corpuscular Volume 94 fL (80-100); Monocytes # (Auto) 0.9 Thou/mm3 (0.0-0.8); Monocytes % (Auto) 11 % (0-12); Neutrophils # (Auto) 4.9 Thou/mm3 (1.8-7.7); Neutrophils % (Auto) 63 % (37-80); Nucleated Red Blood Cell # 0.00 Thou/mm3 (0.00-0.00); Nucleated Red Blood Cell % 0 /100 WBC (0); Platelet Count 379 Thou/mm3 (140-440); RDW Standard Deviation 43.2 fL (35.1-43.9); Red Blood Count 3.05 Miln/mm3 (4.50-5.90); White Blood Count 7.7 Thou/mm3 (3.8-10.6)
[2025-04-12 07:37] LABS: Alanine Aminotransferase 12 U/L (10-49); Albumin, Serum 3.4 gm/dL (3.4-4.8); Albumin/Globulin Ratio 1.4 (1.2-2.2); Alkaline Phosphatase 41 U/L (46-116); Anion Gap 12 (7-16); Aspartate Amino Transferase 29 U/L (0-34); BUN/Creatinine Ratio 10 Ratio (12-20); Bilirubin,Total 0.5 mg/dL (0.3-1.2); Blood Urea Nitrogen 8 mg/dL (9-23); Calcium 9.5 mg/dL (8.3-10.6); Calcium (Corrected) 10.0 mg/dL (8.5-10.1); Carbon Dioxide 23.1 mMol/L (20.0-31.0); Chloride 105 mMol/L (98-107); Creatinine (Component) 0.8 mg/dL (0.6-1.3); Estimated Creatinine Clearance 94.0 mL/min (>60); Globulin 2.5 gm/dL (2.3-3.5); Glucose 106 mg/dL (74-106); Magnesium 1.0 mg/dL (1.6-2.6); Osmolality,Calculated 277 (275-295); Phosphorous 4.2 mg/dL (2.4-5.1); Potassium 3.5 mMol/L (3.4-5.1); Sodium 140 mMol/L (136-145); Total Protein 5.9 gm/dL (5.7-8.2); eGFR > 60 See Note
[2025-04-12 08:00] VITALS: BP 131/90; PULSE 86; RESP 16; TEMP 36.3; O2SAT 96
[2025-04-12] MEDS: HYDROmorphone INJ 2 MG/ML VIAL 0.25 MG IVP (08:10)
--- NOTE | 2025-04-12 08:24 | PC.CC ---
Addendum entered by Yolette Milan RN 04/12/25 12:36: 1232 received call from [facility], spoke to Irina. She stated financial dept declined the transfer. I asked her for the reason. She then transferred me to Elayne Production Control Planner. Elayne stated transfer is declined because [facility] is not a contracted facility with [facility] and they are not accepting GRICEL's at this time. Addendum entered by Yolette Milan RN 04/12/25 10:16: 1010 clinicals sent to [facility]. Addendum entered by Yolette Milan RN 04/12/25 10:16: 0953 received call from [facility], spoke to Irina and gave verbal clinicals. She stated to fax clinicals. She also stated she will page the orthopedic but he is at capacity with patient currently. Addendum entered by Yolette Milan RN 04/12/25 09:35: 0934 called Maya with [facility] insurance at [phone] to get insurance auth, left . Addendum entered by Yolette Milan RN 04/12/25 09:32: 0924 received called from Rosa [place] [facility]. She stated only hospital who does complicated orthopedic surgery is [facility] but it would require prior auth. Got information for auth purpose Hospital name is [facility]. Address [address] [facility] [address]. . Tax ID [id number]. I asked her for accepting Dr. valenzuela just for auth purposes but she stated she can't provide that. Addendum entered by Yolette Milan RN 04/12/25 08:51: 0851 clinicals faxed to [facility]. Addendum entered by Yolette Milan RN 04/12/25 08:45: 0837 called [facility], spoke to Dora and initiated the transfer. She stated to fax clinicals. Addendum entered by Yolette Milan RN 04/12/25 08:31: 0831 faxed only the face sheet to [facility] as instructed by the automated system. Original Note: 0820 called [facility], spoke to Irina to initiated the transfer. She stated to leave the transfer request information with automated system. I left the information. 0708 received handoff from warehouse distribution specialist that pt needs to be transferred for total knee replacement infection and corrales tendon rupture, needs to take out the hardware and fix the tendon needs orthopedic tertiary level of care.
[2025-04-12] MEDS: Magnesium Sulfate 4 GM Ivpb 4 GM/50 ML BAG IV (09:29)
[2025-04-12] MEDS: MAGNESIUM OXIDE 400 MG TABLET PO ×3 (09:30→10:04)
[2025-04-12] MEDS: ONDANSETRON INJ 2 MG/ML INJ 2 ML 4 MG IVP (10:07)
[2025-04-12 12:00] VITALS: BP 129/86; PULSE 85; RESP 18; TEMP 36.1; O2SAT 95
[2025-04-12 16:00] VITALS: BP 130/84; PULSE 87; RESP 18; TEMP 36.1; O2SAT 95
--- NOTE | 2025-04-12 16:07 | PC.NURSE ---
DR. FRIEND CALLED UPDATE GIVEN, MD ORDERS GIVEN, RECEIVED, READ BACK AND CARRIED OUT.
--- NOTE | 2025-04-12 16:24 | ESDS_ITS ---
<Statement entered by Jai Silva MD - 04/14/25 17:26> Patient seen and examined at bedside. Agree with assessment and plan as dictated below. Jai Silva MD Planned Discharge Date 04/12/25 DS: Providers Provider Date of admission: 04/10/25 08:59 Primary care physician: JENNIE Tariq Admitting Provider: Carmen Denny DO Attending Provider on Admission: Carmen Denny DO Consults: 04/10/25 11:12 Referral Wound Care Routine Comment: Attending Provider on DC: Jai Silva MD Discharging Provider: Jai Silva MD DS: Diagnosis Problem List Completed Was Problem List Reviewed/Reconciled?: Yes Hospital Course Hospital Course Hospital course: Mr. Lindsay is a Cook Islander speaking 64 year old male with a past medical history of R knee replacement (12/2024), HTN and pre-diabetes who was admited to [facility] on 04/10/2025 for R Knee effusion s/p I and D by Dr. Razo. Pt arrived to the ED with a temperature of 98.8 F, Pulse 97 bpm, RR 18, BP 126/85, 98%O2 on RA. Labs were done and were pertinent for wbc 7.3, hgb 10.2, PT 12.7, Potassium 3.1, CRP 3.4, Pro-anabella 0.16. Imaging was done was showed R Knee XR signifcant for p ossible soft tissue defect traversing the patellar tendon, Large knee effusion, amenable to aspiration. Pt was given fluids in the ED, medicine was consulted and pt was admitted to the floors. Pt was seen by his Orthopedic surgeon, Dr. Razo, who performed washout and I and D procedure on 04/10/2025. Culture was collected and pt was then started on broad spectrum Zosyn and Vancomycin. It was recommended by the orthopedic surgeon to transfer for higher level of care due to history of patellar tendon rupture (03/13), I and D (02/27/2025), and infected TKR. Pt was then initiated for transfer. Discharge instructions Follow-up with your PCP within 1 week Take your medicines as prescribed Follow up with your orthopedic surgeon, Dr. Razo upon discharge Return to ED if your symptoms worsen or return Problem List: #R Prosthetic Knee effusion #Hx of Patellar tendon rupture #Hx of R TKA #Essential hypertension #Prediabetes Discharge summary was reviewed with my attending Dr. Silva & senior resident Dr. Delilah Dash MD PGY-1 Time Spent with Patient Time attestation: Total time spent providing and/or coordinating discharge services: Time spent: Greater than 30 minutes Exam Vital Signs Temp Pulse Resp BP Pulse Ox O2 Del Method O2 Flow Rate 96.9 F 85 18 129/86 H 95 Room Air 2 04/12/25 12:00 04/12/25 12:00 04/12/25 12:00 04/12/25 12:04/12/25 12:00 04/12/25 12:00 04/10/25 18:27 FiO2 2 04/10/25 18:49 Narrative Exam General: No acute distress; A&Ox3 Skin: Warm, dry, intact, no obvious rash. HENT: NCAT, EOMI, not icteric. External ears normal. No rhinorrhea. Dry mucous membranes Cardiovascular: Regular rate and rhythm, no murmur, +S1/S2. Respiratory: Lungs CTAB GI: Soft, nontender, non-distended. No guarding or rebound tenderness. Extremities: Bilateral foot to ankle 2+ pitting edema, Bilateral ankle to knee 1+ edema; Range of motion for LE bilaterally decreased bilaterally with R side more so decreased; No R knee tenderness; R knee erythema and serosanguinous drainage present. no cyanosis, no clubbing. Extremity pulses present Neuro: No focal deficits observed. Conversant, moving all extremities. No overt cerebellar signs/incoordination. Psychiatric: Cooperative, appropriate affect. Discharge Plan Plan Patient Disposition: [facility] Pt Being Transferred to: Other-Specify in comment Service Needed for Transfer: Orthopedics Disposition Comment: Pending Patient condition on transfer: Stable Care Plan Goals: Discharge instructions Follow-up with your PCP within 1 week Take your medicines as prescribed Follow up with your orthopedic surgeon, Dr. Razo upon discharge Return to ED if your symptoms worsen or return Prescriptions/Referrals Prescriptions/Med Rec: Continued losartan-hydrochlorothiazide 100-25 mg tablet 1 tab PO DAILY cephalexin 500 mg capsule 500 mg PO QID Patient Comments: Take 1 capsule by mouth four times a day for 10 days Discontinued naproxen 375 mg tablet 375 mg PO 3XD Patient Comments: Take 1 tablet by mouth three times a day Referrals: Annie Kirkpatrick FNP-C [Primary Care Provider] - Keo Razo MD [Physician] - Patient/Caregiver Discharge Instructions Discharge Activity: activity as tolerated Education Materials: Knee Replace After Hospital, Knee Replace After Surgery, ED Knee Effusion Print Language: Cook Islander Stand Alone Forms: Kiley Award Info., Patient Portal Info Letter Quality Discharge Quality Measures VTE prophylaxis
[2025-04-12] MEDS: VANCOMYCIN/D5W 1,250 MG IVPB 250 ML 120 MG IV (17:28)
[2025-04-12 20:00] VITALS: BP 164/93; PULSE 92; RESP 16; TEMP 36.3; O2SAT 92
[2025-04-12] MEDS: ASPIRIN EC 81 MG TABEC PO (20:48)
[2025-04-12] MEDS: HYDROcodone/APAP 5/325 TABLET 1 TAB PO (20:50)
[2025-04-13] VITALS: BP 154/85; PULSE 88; RESP 16; TEMP 36.8; O2SAT 96
[2025-04-13 04:00] VITALS: BP 155/92; PULSE 85; RESP 19; TEMP 36.6; O2SAT 95
[2025-04-13] MEDS: PIPER/TAZO 3.375 GM PREMIX 3.375 GM/50 ML BAG IV ×3 (05:08→21:01)
[2025-04-13 06:13] LABS: Basophils # (Auto) 0.1 Thou/mm3 (0.0-0.2); Basophils % (Auto) 1 % (0-2.5); Eosinophils # (Auto) 0.7 Thou/mm3 (0.0-0.5); Eosinophils % (Auto) 10 % (0-10); Hematocrit 28.6 % (41.0-53.0); Hemoglobin 9.5 g/dL (13.5-16.0); Immature Granulocytes Auto 0.06 Thou/mm3 (0.00-0.00); Lymphocytes # (Auto) 1.2 Thou/mm3 (1.0-4.8); Lymphocytes % (Auto) 18 % (10-50); Mean Corpuscular HGB Conc 33.2 g/dl (31.0-37.0); Mean Corpuscular Hemoglobin 31.3 pg (25.0-35.0); Mean Corpuscular Volume 94 fL (80-100); Monocytes # (Auto) 0.6 Thou/mm3 (0.0-0.8); Monocytes % (Auto) 9 % (0-12); Neutrophils # (Auto) 4.1 Thou/mm3 (1.8-7.7); Neutrophils % (Auto) 61 % (37-80); Nucleated Red Blood Cell # 0.00 Thou/mm3 (0.00-0.00); Nucleated Red Blood Cell % 0 /100 WBC (0); Platelet Count 389 Thou/mm3 (140-440); RDW Standard Deviation 43.3 fL (35.1-43.9); Red Blood Count 3.04 Miln/mm3 (4.50-5.90); White Blood Count 6.8 Thou/mm3 (3.8-10.6)
[2025-04-13 06:42] LABS: Alanine Aminotransferase 11 U/L (10-49); Albumin, Serum 3.4 gm/dL (3.4-4.8); Albumin/Globulin Ratio 1.3 (1.2-2.2); Alkaline Phosphatase 40 U/L (46-116); Anion Gap 12 (7-16); Aspartate Amino Transferase 27 U/L (0-34); BUN/Creatinine Ratio 11 Ratio (12-20); Bilirubin,Total 0.4 mg/dL (0.3-1.2); Blood Urea Nitrogen 8 mg/dL (9-23); Calcium 9.6 mg/dL (8.3-10.6); Calcium (Corrected) 10.1 mg/dL (8.5-10.1); Carbon Dioxide 24.0 mMol/L (20.0-31.0); Chloride 102 mMol/L (98-107); Creatinine (Component) 0.7 mg/dL (0.6-1.3); Estimated Creatinine Clearance 107.5 mL/min (>60); Globulin 2.6 gm/dL (2.3-3.5); Glucose 114 mg/dL (74-106); Magnesium 1.2 mg/dL (1.6-2.6); Osmolality,Calculated 274 (275-295); Phosphorous 4.9 mg/dL (2.4-5.1); Potassium 3.7 mMol/L (3.4-5.1); Sodium 138 mMol/L (136-145); Total Protein 6.0 gm/dL (5.7-8.2); eGFR > 60 See Note
[2025-04-13 08:00] VITALS: BP 146/92; PULSE 96; RESP 18; TEMP 36.4; O2SAT 94
--- NOTE | 2025-04-13 08:53 | PC.CC ---
Addendum entered by Alana Harman RN 04/13/25 15:10: During rounds with the doctors, Dr. Peralta informed the team that [facility] called the him to request to speak to the Ortho surgeon. Dr. Peralta provided Dr. Razo's contact number to [facility]. Peer to Peer with Dr. Razo is pending. Addendum entered by Alana Harman RN 04/13/25 13:05: 1241: called [facility], receipt of images confirmed. Case under review Addendum entered by Alana Harman RN 04/13/25 11:30: 1130: 1 cd created, uploaded images via [employer] link received from [facility]. Addendum entered by Alana Harman RN 04/13/25 09:45: 0945: initiated transfer request with [facility]. Addendum entered by Alana Harmna RN 04/13/25 09:39: 0931: spoke to Miah at [facility], Dr. Tovar already reviewed and declined. HLOC for revision specialist is need. Sent clinicals to [facility] and [facility]. 0910: clinicals sent to [facility]. Addendum entered by Alana Harman RN 04/13/25 09:09: 0905: received call from Maris jay/ ANIYAH/[facility] to inform us that [facility] is not contracted with [facility] and is unable to accept the patient. Will resume new facility search. Original Note: 0753: called Maya jay/ [facility]. Left VM to follow up on authorization for transfer.
[2025-04-13] MEDS: Magnesium Sulfate 4 GM Ivpb 4 GM/50 ML BAG IV (11:17)
[2025-04-13] MEDS: VANCOMYCIN/WATER 1250 MG IVPB 250 ML 120 MG IV ×2 (11:17→21:01)
[2025-04-13] MEDS: ASPIRIN EC 81 MG TABEC PO ×2 (11:17→20:54)
[2025-04-13] MEDS: HYDROcodone/APAP 5/325 TABLET 1 TAB PO ×2 (11:18→20:54)
[2025-04-13 11:46] VITALS: BMI 33.6
[2025-04-13 12:00] VITALS: BP 138/87; PULSE 90; RESP 18; TEMP 36.1; O2SAT 93
[2025-04-13] MEDS: cefTRIAXone/D5w 1gm IV premix 1 GM/50 ML BAG IV (12:51)
[2025-04-13 16:00] VITALS: BP 123/74; PULSE 89; RESP 18; TEMP 36.1; O2SAT 99
--- NOTE | 2025-04-13 16:05 | PC.PT ---
Patient is safe to ambulate to the bathroom using crutches and 1 staff assist. RN made aware.
--- NOTE | 2025-04-13 18:08 | ESDS_ITS ---
<Statement entered by Anay Mazariegos MD - 04/14/25 20:00> I have reviewed the note and agree with the resident's assessment & plan with exceptions as below. I have personally reviewed labs, imaging, home meds/prior records, examined the patient, formulated and discussed management plan with the IM team. Pt examined at bedside today. Pt pending transfer at this time. Continuing broad spectrum Abx at this time. Orthopedic surgery on consult, appreciate recommendations. Anay Mazariegos, PGY-2 Internal Medicine Planned Discharge Date 04/13/25 DS: Providers Provider Date of admission: 04/10/25 08:59 Primary care physician: JENNIE Tariq Admitting Provider: Carmen Denny DO Attending Provider on Admission: Wilian Torres MD Consults: 04/10/25 11:12 Referral Wound Care Routine Comment: 04/12/25 16:57 Referral Physical Therapy Urgent Comment: Physician Instructions: Attending Provider on DC: Wilian Torres MD Discharging Provider: Wilian Torres MD DS: Diagnosis Problem List Completed Was Problem List Reviewed/Reconciled?: Yes Hospital Course Hospital Course Hospital course: Mr. Lindsay is a Belarusian speaking 64 year old male with a past medical history of R knee replacement (12/2024), HTN and pre-diabetes who was admited to [facility] on 04/10/2025 for R Knee effusion s/p I and D by Dr. Razo. Pt arrived to the ED with a temperature of 98.8 F, Pulse 97 bpm, RR 18, BP 126/85, 98%O2 on RA. Labs were done and were pertinent for wbc 7.3, hgb 10.2, PT 12.7, Potassium 3.1, CRP 3.4, Pro-anabella 0.16. Imaging was done was showed R Knee XR signifcant for possible soft tissue defect traversing the patellar tendon, Large knee effusion, amenable to aspiration. Pt was given fluids in the ED, medicine was consulted and pt was admitted to the floors. Pt was seen by his Orthopedic surgeon, Dr. Razo, who performed washout and I and D procedure on 04/10/2025. Culture was collected and pt was then started on broad spectrum Zosyn and Vancomycin. It was recommended by the orthopedic surgeon to transfer for higher level of care due to history of patellar tendon rupture (03/13), I and D (02/27/2025), and infected TKR. Pt was then initiated for transfer. Discharge instructions Follow-up with your PCP within 1 week Take your medicines as prescribed Follow up with your orthopedic surgeon, Dr. Razo upon discharge Return to ED if your symptoms worsen or return Problem List: #R Prosthetic Knee effusion #Hx of Patellar tendon rupture #Hx of R TKA #Essential hypertension #Prediabetes Discharge summary was reviewed with my attending Dr. Torres & senior resident Dr. Delilah Dash MD PGY-1 Time Spent with Patient Time attestation: Total time spent providing and/or coordinating discharge services: Time spent: Greater than 30 minutes Exam Vital Signs Temp Pulse Resp BP Pulse Ox O2 Del Method O2 Flow Rate 97.0 F 89 18 123/74 99 Room Air 2 04/13/25 16:00 04/13/25 16:00 04/13/25 16:00 04/13/25 16:00 04/13/25 16:00 04/13/25 16:00 04/10/25 18:27 FiO2 2 04/10/25 18:49 Narrative Exam General: No acute distress; A&Ox3 Skin: Warm, dry, intact, no obvious rash. HENT: NCAT, EOMI, not icteric. External ears normal. No rhinorrhea. Dry mucous membranes Cardiovascular: Regular rate and rhythm, no murmur, +S1/S2. Respiratory: Lungs CTAB GI: Soft, nontender, non-distended. No guarding or rebound tenderness. Extremities: Bilateral foot to ankle 2+ pitting edema, Bilateral ankle to knee 1+ edema; Range of motion for LE bilaterally decreased bilaterally with R side more so decreased; No R knee tenderness; R knee erythema and serosanguinous drainage present. no cyanosis, no clubbing. Extremity pulses present. R LE wrapped. Neuro: No focal deficits observed. Conversant, moving all extremities. No overt cerebellar signs/incoordination. Psychiatric: Cooperative, appropriate affect. Discharge Plan Plan Patient Disposition: [facility] Pt Being Transferred to: Other-Specify in comment Service Needed for Transfer: Orthopedics Disposition Comment: Pending Patient condition on transfer: Stable Care Plan Goals: Discharge instructions Follow-up with your PCP within 1 week Take your medicines as prescribed Follow up with your orthopedic surgeon, Dr. Razo upon discharge Return to ED if your symptoms worsen or return Prescriptions/Referrals Prescriptions/Med Rec: Continued losartan-hydrochlorothiazide 100-25 mg tablet 1 tab PO DAILY cephalexin 500 mg capsule 500 mg PO QID Patient Comments: Take 1 capsule by mouth four times a day for 10 days Discontinued naproxen 375 mg tablet 375 mg PO 3XD Patient Comments: Take 1 tablet by mouth three times a day Referrals: Annie Kirkpatrick FNP-C [Primary Care Provider] - Keo Razo MD [Physician] - Patient/Caregiver Discharge Instructions Discharge Activity: activity as tolerated Education Materials: Knee Replace After Hospital, Knee Replace After Surgery, ED Knee Effusion Print Language: Belarusian Stand Alone Forms: Kiley Award Info., Patient Portal Info Letter Quality Discharge Quality Measures VTE prophylaxis MD Attestestation MD Attestation I have examined the patient, reviewed labs and imaging findings, discussed the case with the resident(s), and reviewed entered orders. I agree with the plan of care as outlined in this note, with these additional summaries/recommendations: Patient seen at bedside. No acute overnight events. Patient seen resting comfortably. He does endorse right knee pain although reports it is controlled with as needed [place]. Patient admitted for septic arthritis of right knee. He does have history of right knee replacement. He reportedly has received multiple IV courses of antibiotics for right knee septic arthritis in the past.. In-house orthopedics following and status post debridement and washout with orthopedics on 04/11/2025. Given that patient has had multiple recurrence of infection and now suspected of having partial patellar rupture and orthopedics has recommended transfer to a higher level of care which was initiated. We will follow-up with transfer nurse. Patient in agreement. Continue IV antibiotics and pain control. Please see residents note for additional details and frank jones. Time Spent: [address] Brian MD
[2025-04-13 20:00] VITALS: BP 135/85; PULSE 95; RESP 17; TEMP 36.5; O2SAT 94
[2025-04-14] VITALS: BP 137/78; PULSE 82; RESP 17; TEMP 36.7; O2SAT 94
[2025-04-14] MEDS: MORPHINE SULF INJ 10 MG/ML VIAL 4 MG IVP ×2 (01:54→19:19)
[2025-04-14 04:00] VITALS: BP 124/82; PULSE 82; RESP 18; TEMP 36.7; O2SAT 92
[2025-04-14] MEDS: PIPER/TAZO 3.375 GM PREMIX 3.375 GM/50 ML BAG IV ×3 (05:38→21:02)
[2025-04-14 06:30] LABS: Basophils # (Auto) 0.1 Thou/mm3 (0.0-0.2); Basophils % (Auto) 1 % (0-2.5); Eosinophils # (Auto) 0.8 Thou/mm3 (0.0-0.5); Eosinophils % (Auto) 11 % (0-10); Hematocrit 30.6 % (41.0-53.0); Hemoglobin 10.1 g/dL (13.5-16.0); Immature Granulocytes Auto 0.08 Thou/mm3 (0.00-0.00); Lymphocytes # (Auto) 1.7 Thou/mm3 (1.0-4.8); Lymphocytes % (Auto) 24 % (10-50); Mean Corpuscular HGB Conc 33.0 g/dl (31.0-37.0); Mean Corpuscular Hemoglobin 31.0 pg (25.0-35.0); Mean Corpuscular Volume 94 fL (80-100); Monocytes # (Auto) 0.6 Thou/mm3 (0.0-0.8); Monocytes % (Auto) 8 % (0-12); Neutrophils # (Auto) 3.9 Thou/mm3 (1.8-7.7); Neutrophils % (Auto) 56 % (37-80); Nucleated Red Blood Cell # 0.00 Thou/mm3 (0.00-0.00); Nucleated Red Blood Cell % 0 /100 WBC (0); Platelet Count 470 Thou/mm3 (140-440); RDW Standard Deviation 42.3 fL (35.1-43.9); Red Blood Count 3.26 Miln/mm3 (4.50-5.90); White Blood Count 7.0 Thou/mm3 (3.8-10.6)
[2025-04-14 07:02] LABS: Alanine Aminotransferase 12 U/L (10-49); Albumin, Serum 3.6 gm/dL (3.4-4.8); Albumin/Globulin Ratio 1.3 (1.2-2.2); Alkaline Phosphatase 40 U/L (46-116); Anion Gap 13 (7-16); Aspartate Amino Transferase 27 U/L (0-34); BUN/Creatinine Ratio 10 Ratio (12-20); Bilirubin,Total 0.4 mg/dL (0.3-1.2); Blood Urea Nitrogen 7 mg/dL (9-23); Calcium 10.0 mg/dL (8.3-10.6); Calcium (Corrected) 10.3 mg/dL (8.5-10.1); Carbon Dioxide 22.9 mMol/L (20.0-31.0); Chloride 104 mMol/L (98-107); Creatinine (Component) 0.7 mg/dL (0.6-1.3); Estimated Creatinine Clearance 107.5 mL/min (>60); Globulin 2.8 gm/dL (2.3-3.5); Glucose 122 mg/dL (74-106); Magnesium 1.1 mg/dL (1.6-2.6); Osmolality,Calculated 278 (275-295); Phosphorous 4.5 mg/dL (2.4-5.1); Potassium 3.5 mMol/L (3.4-5.1); Sodium 140 mMol/L (136-145); Total Protein 6.4 gm/dL (5.7-8.2); eGFR > 60 See Note
--- NOTE | 2025-04-14 07:32 | PC.CC ---
Addendum entered by Felicia Joseph RN 04/14/25 07:52: 0742- Spoke to Sushma at [facility] who states Dr. Rivera spoke to Dr. Marcelino at 1600 and per conversatio patient will e treated by Dr. Marcelino and seen as out patient if needed adn transfer cancelled. Spoke to Dr Marcelino who states transfer is cancelled and he will dictate soon Original Note: [id number]-Spoke to Margaret at [facility] for update on transfer request, she states they are in report they have no beds and to call back at [phone]
[2025-04-14 08:00] VITALS: BP 140/91; PULSE 100; RESP 18; TEMP 36.2; O2SAT 99
[2025-04-14] MEDS: cefTRIAXone/D5w 1gm IV premix 1 GM/50 ML BAG IV (08:06)
[2025-04-14] MEDS: ASPIRIN EC 81 MG TABEC PO ×2 (08:06→20:35)
--- NOTE | 2025-04-14 08:40 | CHAP ---
Patient was visited by a Spiritual Care Volunteer 0n 04/13/2025 between 1000 and 1100 and received comfort, encouragement and/or prayer.
[2025-04-14 10:52] LABS: Vancomycin,Trough 18.1 mcg/mL (5.0-10.0)
[2025-04-14] MEDS: Magnesium Sulfate 4 GM Ivpb 4 GM/50 ML BAG IV (11:31)
[2025-04-14 12:00] VITALS: BP 120/60; PULSE 99; RESP 18; TEMP 36.4; O2SAT 98
--- NOTE | 2025-04-14 13:09 | PC.SS ---
Rounding: HLOC Cancelled, pending Dr. Chari nielsen and possible DC home
--- NOTE | 2025-04-14 14:13 | PC.NURSE ---
Dr. Razo here to change dressing, incision is clean, stitches intact, dried sanguinous discharge
[2025-04-14] MEDS: HYDROcodone/APAP 5/325 TABLET 1 TAB PO ×2 (14:19→23:23)
[2025-04-14 16:00] VITALS: BP 147/82; PULSE 90; RESP 19; TEMP 36.4; O2SAT 99
--- NOTE | 2025-04-14 16:12 | ESPR_ITS ---
<Statement entered by Hannah Peralta MD - 04/14/25 19:24> Patient was seen and examined at bedside. Continues to have mild to moderate pain getting [place] as needed. Transfer was canceled as the orthopedic surgeon from [facility] spoken with the orthopedic surgeon here in our facility Dr Razo. Dr Dung nayak concluded that patient will need PICC line for 4 weeks of IV antibiotics and to follow-up outpatient settings. At that time patient will be referred as an outpatient to a higher level of care facility. PICC line and 4 weeks of IV cefazolin till 05 May 2025 Home health orders will be placed tomorrow. Anticipated discharge next 24hrs. - Patient's plan and care discussed with my attending, Dr. Vidal Peralta MD Internal Medicine PGY-3 Documentation for date of: 04/14/25 Subjective Subjective Interval history: No acute events overnight. Patient seen and examined at bedside. Vitals and labs reviewed. Patient states that he is doing okay, feels some nausea after eating breakfast. Patient denies fever, chest pain, shortness of breath. Exam Vital Signs Temp Pulse Resp BP Pulse Ox O2 Del Method O2 Flow Rate 97.6 F 99 18 120/60 98 Room Air 2 04/14/25 12:00 04/14/25 12:00 04/14/25 12:00 04/14/25 12:00 04/14/25 12:00 04/14/25 12:00 04/14/25 04:00 FiO2 2 04/10/25 18:49 Narrative Exam General: No acute distress; A&Ox3 Skin: Warm, dry, intact, no obvious rash. HENT: NCAT, EOMI, not icteric. External ears normal. No rhinorrhea. Mucous membranes moist. Cardiovascular: Regular rate and rhythm, no murmur, +S1/S2. Respiratory: Lungs CTAB GI: Soft, nontender, non-distended. No guarding or rebound tenderness. Extremities: Bilateral foot to ankle 2+ pitting edema, Bilateral ankle to knee 1+ edema; Range of motion for LE bilaterally decreased bilaterally with R side more so decreased; No R knee tenderness; R knee erythema and serosanguinous drainage present. no cyanosis, no clubbing. Extremity pulses present Neuro: No focal deficits observed. Conversant, moving all extremities. No overt cerebellar signs/incoordination. Psychiatric: Cooperative, appropriate affect. Objective Labs 04/15/25 04:48 04/15/25 04:48 Labs: Laboratory Results - last 24 hr 04/14/25 04/14/25 06:04 10:21 WBC 7.0 RBC 3.26 L Hgb 10.1 L Hct 30.6 L MCV 94 MCH 31.0 MCHC 33.0 RDW Std Deviation 42.3 Plt Count 470 H D Neut % (Auto) 56 Lymph % (Auto) 24 [place] % (Auto) 8 Eos % (Auto) 11 H Baso % (Auto) 1 Neut # (Auto) 3.9 Lymph # (Auto) 1.7 [place] # (Auto) 0.6 Eos # (Auto) 0.8 H Baso # (Auto) 0.1 Immature Gran # (Auto) 0.08 H Absolute Nucleated RBC 0.00 Immature Gran % 1 H Nucleated RBC % 0 Sodium 140 Potassium 3.5 Chloride 104 Carbon Dioxide 22.9 Anion Gap 13 BUN 7 L Creatinine 0.7 Estim Creat Clear Calc 107.5 eGFR > 60 BUN/Creatinine Ratio 10 L Glucose 122 H Calculated Osmolality 278 Calcium 10.0 Corrected Calcium 10.3 H Phosphorus 4.5 Magnesium 1.1 L Total Bilirubin 0.4 AST 27 ALT 12 Alkaline Phosphatase 40 L Total Protein 6.4 Albumin 3.6 Globulin 2.8 Albumin/Globulin Ratio 1.3 Vancomycin Trough 18.1 H Quality Measures Quality Measures VTE prophylaxis Assessment & Plan Assessment Current Active Medications: Generic Name Dose Route Start Last Admin Trade Name Freq PRN Reason Stop Dose Admin Acetaminophen 650 mg 04/10/25 11:10 04/10/25 23:03 Acetaminophen 325 Mg Tablet PO 05/10/25 11:09 650 mg Q6H PRN Administration Fever >100 or pain 1-3 Hydrocodone Bitart/Acetaminophen 1 tab 04/12/25 14:47 04/14/25 14:19 Hydrocodone/Apap 5/325 Tablet PO 04/17/25 10:54 1 tab Q6HR PRN Administration Pain 4-6 Protocol Aspirin 81 mg 04/12/25 21:00 04/14/25 08:06 Aspirin Ec 81 Mg Tabec PO 05/12/25 20:59 81 mg BID ADITI Administration Dextrose 25 ml 04/10/25 16:53 Dextrose 50%-Water Inj 50 Ml Syringe IV 05/10/25 16:52 Q15MIN PRN BG 50-70 responsive npo pt Dextrose 50 ml 04/10/25 16:53 Dextrose 50%-Water Inj 50 Ml Syringe IV 05/10/25 16:52 Q15MIN PRN BG <50 OR BG <70 & pt unresponsive Glucagon 1 mg 04/10/25 16:53 Glucagon Inj 1 Mg Vial IM Q15MIN PRN BG <70, and no IV access Piperacillin/Tazobactam/Dextrose 3.375 gm in 50 mls @ 12.5 mls/hr 04/11/25 22:00 04/14/25 14:18 Zosyn IV 04/18/25 21:59 12.5 mls/hr Q8HR ADITI Administration Ceftriaxone Sodium/Dextrose 1 gm in 50 mls @ 100 mls/hr 04/13/25 11:23 04/14/25 08:06 Rocephin/D5w 1gm Iv Premix IV 04/20/25 11:22 100 mls/hr QDAY ADITI Administration Vancomycin HCl 200 mls @ 120 mls/hr 04/14/25 22:00 Vancomycin/Water 1gm Ivpb IV 04/21/25 21:59 Q12H ADITI Protocol Insulin Human Lispro 0 unit 04/10/25 21:00 04/14/25 08:05 Insulin Lispro (Admelog) 1 Unit/0.01 Ml Unit SC 05/10/25 20:59 Not Given ACHS ADITI Protocol Morphine Sulfate 4 mg 04/10/25 19:08 04/14/25 01:54 Morphine Sulf Inj 10 Mg/Ml Vial IVP 04/15/25 19:07 4 mg Q8HR PRN Administration PAIN 4-10 Protocol Ondansetron HCl 4 mg 04/10/25 11:10 04/12/25 10:07 Ondansetron Inj 2 Mg/Ml Inj 2 Ml IVP 05/10/25 11:09 4 mg Q6H PRN Administration NAUSEA OR VOMITING Protocol Pharmacy Consult 1 each 04/10/25 11:45 Vancomycin Pharmacy To Dose 1 Each Each IV 05/10/25 11:44 QDAY PRN CONSULT Plan Mr. Lindsay is a Occitan speaking 64 year old male with a past medical history of R knee replacement (12/2024), HTN and pre-diabetes who presented to the ED due to worsening R knee pain and drainage. Patient was admitted for further evaluation and management of R knee infection. # R Prosthetic Knee Infection Patient had R knee Replacement surgery 12/2024. Hospitalized for R knee infection in 02/2025. Was on Rocephin IV outpatient (was dc'd), came in taking Cephalexin Patient's R knee has worsening drainage, pain, erythema over the last week. Patient was told to come for evaluation by Dr. Razo. Attempted multiple times to get patient transferred to higher level of care s/p Irrigation, debridement and washout (04/11), unsuccessful. -Orthopedic surgeon Dr. Razo recommended PICC line insertion with 4 weeks of cefazolin -Continue antibiotics Vancomycin IV qd pharmacy dosed, Zosyn 3.375 IV q6hr -Pain control with acetaminophen 650 mg po q6h, hydromorphone 0.25 mg q4h prn, morphine IV 1 mg q4hr prn -Aspirin 81 mg po BID -Wound Care referred #Hypomagnesemia Low on admission 0.8 04/14: 1.1 -repleted and will continue to monitor #Prediabetes Glucose on admission 111 Hgb A1c 04/11/2025: 6.1 Patient does not take any home medication for diabetes -Glucose checks q6hr - ISS #htn Patient takes losartan for blood pressure. -Will restart medication when appropriate. Hospital Management: Disposition: Med Surg Diet: Carb Consistent GI Prophylaxis: n/a Bowel Prophylaxis: n/a DVT Prophylaxis: SCD's CODE STATUS: FULL CODE Patient plan of care was discussed with the attending physician, Dr. Drake & senior resident Dr. Fabian Dash MD PGY-1 Attending Provider Attestation/Addendum I have discussed and was present for the essential components of the history, physical examination, diagnosis, and treatment plan with the resident. I agree with the patient's care as documented by the resident and amended herein by me. Royal Drake DO. Although this document has been carefully reviewed, there may still be some phonetic and other typographical errors. These errors are purely grammatical due to imperfections in the software program and should not be construed in any way to compromise the substance of the patient's medical care during this visit.
--- NOTE | 2025-04-14 16:12 | ESPR_ITS ---
RE: MAXINE SUAREZ : 1960 DATE OF SERVICE: 04/12/2025 PROGRESS REPORT The patient was seen by me again on 04/12/2025. The patient was doing fine. We are awaiting the result for the wound culture ancestry. The patient is on Zosyn and vancomycin. I also requested the patient to be transferred to a higher level of care as I believe the patient may need 2-stage revision of the knee replacement. The social services specialist stated that they are going to start on it. The patient is also being put on vancomycin and Zosyn. DT: 14:05:09 TT: 16:10:00 Ref: [id number] - TID: [id number]
--- NOTE | 2025-04-14 16:44 | ESPR_ITS ---
RE: MAXINE SUAREZ : 1960 DATE OF SERVICE: 04/14/2025 The patient was seen again on 04/14/2025. Dressing change was done. Little area was still getting necrotic and I believe a scab may be formed. The patient is on vancomycin, Zosyn, and also cefazolin. Wound culture report came back to be negative. There is no growth. Under the circumstances and in the light of discussion with Dr. Rivera from [facility], I believe the patient may be discharged home on IV antibiotics. The patient need PICC line and I prefer cefazolin once daily or other medication equivalent to that. I will follow him in my office once the patient is discharged. DT: 14:08:46 TT: 16:41:00 Ref: [id number] - TID: [id number]
[2025-04-14 20:00] VITALS: BP 127/78; PULSE 89; RESP 16; TEMP 36.3; O2SAT 93
[2025-04-14] MEDS: VANCOMYCIN/WATER 1GM IVPB 200 ML IV (21:02)
--- NOTE | 2025-04-14 23:57 | ESPR_ITS ---
RE: MAXINE SUAREZ : 1960 DATE OF SERVICE: 04/13/2025 PROGRESS NOTE The patient was seen by me again on 04/13/2025. The patient is status post I and D of the right knee. The patient is status post right total knee replacement done 2 months back. The dressing change was done. There was some blood discharge. At a small place of the skin incision, there is a little bit of infection or necrotic tissue present. However, it is getting dry. As I advised the patient to be transferred to higher level of care, I got a phone call from Dr. Austin from [facility]. Detailed discussion took place. Dr. Austin advised me to wait for a few more days and to see the result of I and D of the right knee done on 04/10/2025. By the time I talked to Dr. Austin, the wound culture report has not come back. He further advised that I can make an appointment for him to use CSF outpatient. He gave me the email address, which I noted down. I will wait for a few more days and see whether the wound is improving or not. He agreed that the patient at some stage may need to stage a knee replacement procedure. Meanwhile, we will continue with antibiotics. DT: 14:07:19 TT: 16:21:00 Ref: [id number] - TID: [id number]
[2025-04-15] VITALS: BP 129/85; PULSE 86; RESP 16; TEMP 36.1; O2SAT 93
[2025-04-15 04:00] VITALS: BP 104/85; PULSE 95; RESP 19; TEMP 36.2; O2SAT 95
[2025-04-15] MEDS: PIPER/TAZO 3.375 GM PREMIX 3.375 GM/50 ML BAG IV ×3 (05:07→21:27)
[2025-04-15 06:05] LABS: Basophils # (Auto) 0.1 Thou/mm3 (0.0-0.2); Basophils % (Auto) 1 % (0-2.5); Eosinophils # (Auto) 0.7 Thou/mm3 (0.0-0.5); Eosinophils % (Auto) 10 % (0-10); Hematocrit 28.9 % (41.0-53.0); Hemoglobin 9.6 g/dL (13.5-16.0); Immature Granulocytes Auto 0.07 Thou/mm3 (0.00-0.00); Lymphocytes # (Auto) 1.5 Thou/mm3 (1.0-4.8); Lymphocytes % (Auto) 21 % (10-50); Mean Corpuscular HGB Conc 33.2 g/dl (31.0-37.0); Mean Corpuscular Hemoglobin 31.5 pg (25.0-35.0); Mean Corpuscular Volume 95 fL (80-100); Monocytes # (Auto) 0.7 Thou/mm3 (0.0-0.8); Monocytes % (Auto) 10 % (0-12); Neutrophils # (Auto) 4.2 Thou/mm3 (1.8-7.7); Neutrophils % (Auto) 58 % (37-80); Nucleated Red Blood Cell # 0.00 Thou/mm3 (0.00-0.00); Nucleated Red Blood Cell % 0 /100 WBC (0); Platelet Count 498 Thou/mm3 (140-440); RDW Standard Deviation 42.5 fL (35.1-43.9); Red Blood Count 3.05 Miln/mm3 (4.50-5.90); White Blood Count 7.2 Thou/mm3 (3.8-10.6)
[2025-04-15 06:40] LABS: Alanine Aminotransferase 13 U/L (10-49); Albumin, Serum 3.7 gm/dL (3.4-4.8); Albumin/Globulin Ratio 1.5 (1.2-2.2); Alkaline Phosphatase 39 U/L (46-116); Anion Gap 14 (7-16); Aspartate Amino Transferase 31 U/L (0-34); BUN/Creatinine Ratio 10 Ratio (12-20); Bilirubin,Total 0.3 mg/dL (0.3-1.2); Blood Urea Nitrogen 6 mg/dL (9-23); Calcium 9.7 mg/dL (8.3-10.6); Calcium (Corrected) 9.9 mg/dL (8.5-10.1); Carbon Dioxide 23.5 mMol/L (20.0-31.0); Chloride 103 mMol/L (98-107); Creatinine (Component) 0.6 mg/dL (0.6-1.3); Estimated Creatinine Clearance 125.4 mL/min (>60); Globulin 2.5 gm/dL (2.3-3.5); Glucose 105 mg/dL (74-106); Magnesium 1.6 mg/dL (1.6-2.6); Osmolality,Calculated 277 (275-295); Phosphorous 4.6 mg/dL (2.4-5.1); Potassium 3.4 mMol/L (3.4-5.1); Sodium 140 mMol/L (136-145); Total Protein 6.2 gm/dL (5.7-8.2); eGFR > 60 See Note
[2025-04-15 07:43] VITALS: BP 141/90; PULSE 92; RESP 20; TEMP 36.6; O2SAT 96
[2025-04-15] MEDS: cefTRIAXone/D5w 1gm IV premix 1 GM/50 ML BAG IV (08:16)
[2025-04-15] MEDS: ASPIRIN EC 81 MG TABEC PO ×2 (08:16→21:27)
--- NOTE | 2025-04-15 08:18 | CHAP ---
Patient was visited by a Spiritual Care Volunteer on 04/14/2025 between 0900 and 1200 and received comfort, encouragement and/or prayer.
[2025-04-15] MEDS: HYDROcodone/APAP 5/325 TABLET 1 TAB PO ×2 (10:12→21:27)
[2025-04-15] MEDS: VANCOMYCIN/WATER 1GM IVPB 200 ML IV ×2 (10:35→21:27)
--- NOTE | 2025-04-15 10:47 | PC.SS ---
SS spoke to pt [place] [phone] with Accounts Payable Professional Emily GONZALEZ- to discuss DC plan for HH with IV ABX. Address: [address] [place] [id number] PCP: Annie Fisher Last visit: Within one month is in agreement to help pt with IV ABX, pt is Finnish speaking and wishes to be trained by someone who is Finnish speaking. No preference.
[2025-04-15 11:46] VITALS: BP 139/86; PULSE 90; RESP 20; TEMP 36.2; O2SAT 96
--- NOTE | 2025-04-15 12:14 | PC.CM ---
I spoke to Dr. Mazariegos and he states patient will be getting a PICC line placed. He is not ready for discharge at this time.
--- NOTE | 2025-04-15 13:28 | PC.SS ---
Rounding: Pending PICCLINE for IV ABX with HH
--- NOTE | 2025-04-15 14:11 | ESPR_ITS ---
<Statement entered by Anay Mazariegos MD - 04/15/25 14:34> I have reviewed the note and agree with the resident's assessment & plan with exceptions as below. I have personally reviewed labs, imaging, home meds/prior records, examined the patient, formulated and discussed management plan with the IM team. Pt examined at bedside. No acute overnight events. Pt reports he is agreeable to go home with home health PT. Orthopedic surgery recommends IV abx and follow up outpatient. Pt will need PICC line for IV abx, end date May 11 (Rocephin), however, PICC line unable to do today. Will see if we can get PICC line tomorrow. Repeat hematology and chemistry in AM. Anay Mazariegos, PGY-2 Internal Medicine Documentation for date of: 04/15/25 Subjective Subjective Interval history: No acute events overnight. Patient seen and examined at bedside. Vitals and labs reviewed. Patient denies any complaints/concerns. Patient denies fever, chest pain, shortness of breath Exam Vital Signs Temp Pulse Resp BP Pulse Ox O2 Del Method O2 Flow Rate 97.2 F 90 20 139/86 H 96 Room Air 2 04/15/25 11:46 04/15/25 11:46 04/15/25 11:46 04/15/25 11:46 04/15/25 11:46 04/15/25 11:46 04/14/25 04:00 FiO2 2 04/10/25 18:49 Narrative Exam General: No acute distress; A&Ox3 Skin: Warm, dry, intact, no obvious rash. HENT: NCAT, EOMI, not icteric. External ears normal. No rhinorrhea. Mucous membranes moist. Cardiovascular: Regular rate and rhythm, no murmur, +S1/S2. Respiratory: Lungs CTAB GI: Soft, nontender, non-distended. No guarding or rebound tenderness. Extremities: Bilateral foot to ankle 2+ pitting edema, Bilateral ankle to knee 1+ edema; Range of motion for LE bilaterally decreased bilaterally with R side more so decreased; No R knee tenderness; R knee erythema and serosanguinous drainage present. no cyanosis, no clubbing. Extremity pulses present Neuro: No focal deficits observed. Conversant, moving all extremities. No overt cerebellar signs/incoordination. Psychiatric: Cooperative, appropriate affect. Objective Labs 04/15/25 04:48 04/15/25 04:48 Labs: Laboratory Results - last 24 hr 04/15/25 04:48 WBC 7.2 RBC 3.05 L Hgb 9.6 L Hct 28.9 L MCV 95 MCH 31.5 MCHC 33.2 RDW Std Deviation 42.5 Plt Count 498 H Neut % (Auto) 58 Lymph % (Auto) 21 [place] % (Auto) 10 Eos % (Auto) 10 Baso % (Auto) 1 Neut # (Auto) 4.2 Lymph # (Auto) 1.5 [place] # (Auto) 0.7 Eos # (Auto) 0.7 H Baso # (Auto) 0.1 Immature Gran # (Auto) 0.07 H Absolute Nucleated RBC 0.00 Immature Gran % 1 H Nucleated RBC % 0 Sodium 140 Potassium 3.4 Chloride 103 Carbon Dioxide 23.5 Anion Gap 14 BUN 6 L Creatinine 0.6 Estim Creat Clear Calc 125.4 eGFR > 60 BUN/Creatinine Ratio 10 L Glucose 105 Calculated Osmolality 277 Calcium 9.7 Corrected Calcium 9.9 Phosphorus 4.6 Magnesium 1.6 Total Bilirubin 0.3 AST 31 ALT 13 Alkaline Phosphatase 39 L Total Protein 6.2 Albumin 3.7 Globulin 2.5 Albumin/Globulin Ratio 1.5 Quality Measures Quality Measures VTE prophylaxis Assessment & Plan Assessment Current Active Medications: Generic Name Dose Route Start Last Admin Trade Name Freq PRN Reason Stop Dose Admin Acetaminophen 650 mg 04/10/25 11:10 04/10/25 23:03 Acetaminophen 325 Mg Tablet PO 05/10/25 11:09 650 mg Q6H PRN Administration Fever >100 or pain 1-3 Hydrocodone Bitart/Acetaminophen 1 tab 04/12/25 14:47 04/15/25 10:12 Hydrocodone/Apap 5/325 Tablet PO 04/17/25 10:54 1 tab Q6HR PRN Administration Pain 4-6 Protocol Aspirin 81 mg 04/12/25 21:00 04/15/25 08:16 Aspirin Ec 81 Mg Tabec PO 05/12/25 20:59 81 mg BID ADITI Administration Dextrose 25 ml 04/10/25 16:53 Dextrose 50%-Water Inj 50 Ml Syringe IV 05/10/25 16:52 Q15MIN PRN BG 50-70 responsive npo pt Dextrose 50 ml 04/10/25 16:53 Dextrose 50%-Water Inj 50 Ml Syringe IV 05/10/25 16:52 Q15MIN PRN BG <50 OR BG <70 & pt unresponsive Glucagon 1 mg 04/10/25 16:53 Glucagon Inj 1 Mg Vial IM Q15MIN PRN BG <70, and no IV access Piperacillin/Tazobactam/Dextrose 3.375 gm in 50 mls @ 12.5 mls/hr 04/11/25 22:00 04/15/25 05:07 Zosyn IV 04/18/25 21:59 12.5 mls/hr Q8HR ADITI Administration Ceftriaxone Sodium/Dextrose 1 gm in 50 mls @ 100 mls/hr 04/13/25 11:23 04/15/25 08:16 Rocephin/D5w 1gm Iv Premix IV 04/20/25 11:22 100 mls/hr QDAY ADITI Administration Vancomycin HCl 200 mls @ 120 mls/hr 04/14/25 22:00 04/15/25 10:35 Vancomycin/Water 1gm Ivpb IV 04/21/25 21:59 120 mls/hr Q12H ADITI Administration Protocol Insulin Human Lispro 0 unit 04/10/25 21:00 04/15/25 08:18 Insulin Lispro (Admelog) 1 Unit/0.01 Ml Unit SC 05/10/25 20:59 Not Given ACHS ADITI Protocol Morphine Sulfate 4 mg 04/10/25 19:08 04/14/25 19:19 Morphine Sulf Inj 10 Mg/Ml Vial IVP 04/15/25 19:07 4 mg Q8HR PRN Administration PAIN 4-10 Protocol Ondansetron HCl 4 mg 04/10/25 11:10 04/12/25 10:07 Ondansetron Inj 2 Mg/Ml Inj 2 Ml IVP 05/10/25 11:09 4 mg Q6H PRN Administration NAUSEA OR VOMITING Protocol Pharmacy Consult 1 each 04/10/25 11:45 Vancomycin Pharmacy To Dose 1 Each Each IV 05/10/25 11:44 QDAY PRN CONSULT Plan Mr. Lindsay is a Armenian speaking 64 year old male with a past medical history of R knee replacement (12/2024), HTN and pre-diabetes who presented to the ED due to worsening R knee pain and drainage. Patient was admitted for further evaluation and management of R knee infection. # R Prosthetic Knee Infection Patient had R knee Replacement surgery 12/2024. Hospitalized for R knee infection in 02/2025. Was on Rocephin IV outpatient (was dc'd), came in taking Cephalexin Patient's R knee has worsening drainage, pain, erythema over the last week. Patient was told to come for evaluation by Dr. Razo. Attempted multiple times to get patient transferred to higher level of care s/p Irrigation, debridement and washout (04/11), unsuccessful. -Dr. Razo noted that Dr. Austin from [facility] advised him to wait for a few more days and to see the result of I and D of the right knee done on 04/10/2025. -Orthopedic surgeon Dr. Razo recommended PICC line insertion with 4 weeks of cefazolin, pending PICC -Continue antibiotics Vancomycin IV qd pharmacy dosed, Zosyn 3.375 IV q6hr -Pain control with acetaminophen 650 mg po q6h, hydromorphone 0.25 mg q4h prn, morphine IV 1 mg q4hr prn -Aspirin 81 mg po BID -Wound Care referred #Hypomagnesemia Low on admission 0.8 04/14: 1.1 04/15: 1.6 -will continue to monitor #Prediabetes Glucose on admission 111 Hgb A1c 04/11/2025: 6.1 Patient does not take any home medication for diabetes -Glucose checks q6hr - ISS #htn Patient takes losartan for blood pressure. -Will restart medication when appropriate. Hospital Management: Disposition: Med Surg Diet: Carb Consistent GI Prophylaxis: n/a Bowel Prophylaxis: n/a DVT Prophylaxis: SCD's CODE STATUS: FULL CODE Patient plan of care was discussed with the attending physician, Dr. Drake & senior resident Dr. Delilah Dash MD PGY-1 Attending Provider Attestation/Addendum I have discussed and was present for the essential components of the history, physical examination, diagnosis, and treatment plan with the resident. I agree with the patient's care as documented by the resident and amended herein by me. Royal Drake DO. Although this document has been carefully reviewed, there may still be some phonetic and other typographical errors. These errors are purely grammatical due to imperfections in the software program and should not be construed in any way to compromise the substance of the patient's medical care during this visit. Patient seen and evaluated this AM. Patient doing well, no subjective complaints in the morning. Patient wishes to go home with home health hence I have ordered home health for IV antibiotics, ceftriaxone through 11 May which will be a 4-week duration total of IV antibiotics per orthopedic surgery recommendations. Patient will follow-up with Dr. Razo upon discharge. We did order a PICC line which was supposed to be placed today however apparently the hospital is out of PICC lines with no ETA when they will be resupplied hence the patient will remain here for now until we can get that placed.
[2025-04-15 16:00] VITALS: BP 106/78; PULSE 92; RESP 18; TEMP 36.2; O2SAT 97
[2025-04-15 20:00] VITALS: BP 132/90; PULSE 92; RESP 16; TEMP 36.7; O2SAT 95
[2025-04-16] VITALS: BP 133/81; PULSE 81; RESP 16; TEMP 36.2; O2SAT 94
[2025-04-16 04:00] VITALS: BP 148/88; PULSE 20; PULSE 85; RESP 20; TEMP 36.3; O2SAT 94
[2025-04-16] MEDS: PIPER/TAZO 3.375 GM PREMIX 3.375 GM/50 ML BAG IV (05:12)
[2025-04-16 05:51] LABS: Basophils # (Auto) 0.1 Thou/mm3 (0.0-0.2); Basophils % (Auto) 1 % (0-2.5); Eosinophils # (Auto) 0.8 Thou/mm3 (0.0-0.5); Eosinophils % (Auto) 10 % (0-10); Hematocrit 28.6 % (41.0-53.0); Hemoglobin 9.7 g/dL (13.5-16.0); Immature Granulocytes Auto 0.09 Thou/mm3 (0.00-0.00); Lymphocytes # (Auto) 1.5 Thou/mm3 (1.0-4.8); Lymphocytes % (Auto) 19 % (10-50); Mean Corpuscular HGB Conc 33.9 g/dl (31.0-37.0); Mean Corpuscular Hemoglobin 32.4 pg (25.0-35.0); Mean Corpuscular Volume 96 fL (80-100); Monocytes # (Auto) 0.7 Thou/mm3 (0.0-0.8); Monocytes % (Auto) 9 % (0-12); Neutrophils # (Auto) 4.8 Thou/mm3 (1.8-7.7); Neutrophils % (Auto) 60 % (37-80); Nucleated Red Blood Cell # 0.00 Thou/mm3 (0.00-0.00); Nucleated Red Blood Cell % 0 /100 WBC (0); Platelet Count 467 Thou/mm3 (140-440); RDW Standard Deviation 43.2 fL (35.1-43.9); Red Blood Count 2.99 Miln/mm3 (4.50-5.90); White Blood Count 8.0 Thou/mm3 (3.8-10.6)
[2025-04-16 06:29] LABS: Alanine Aminotransferase 15 U/L (10-49); Albumin, Serum 3.6 gm/dL (3.4-4.8); Albumin/Globulin Ratio 1.4 (1.2-2.2); Alkaline Phosphatase 37 U/L (46-116); Anion Gap 13 (7-16); Aspartate Amino Transferase 35 U/L (0-34); BUN/Creatinine Ratio 9 Ratio (12-20); Bilirubin,Total 0.3 mg/dL (0.3-1.2); Blood Urea Nitrogen 6 mg/dL (9-23); Calcium 9.9 mg/dL (8.3-10.6); Calcium (Corrected) 10.2 mg/dL (8.5-10.1); Carbon Dioxide 24.1 mMol/L (20.0-31.0); Chloride 105 mMol/L (98-107); Creatinine (Component) 0.7 mg/dL (0.6-1.3); Estimated Creatinine Clearance 107.5 mL/min (>60); Globulin 2.6 gm/dL (2.3-3.5); Glucose 98 mg/dL (74-106); Magnesium 1.0 mg/dL (1.6-2.6); Osmolality,Calculated 280 (275-295); Phosphorous 4.3 mg/dL (2.4-5.1); Potassium 3.3 mMol/L (3.4-5.1); Sodium 142 mMol/L (136-145); Total Protein 6.2 gm/dL (5.7-8.2); eGFR > 60 See Note
[2025-04-16 08:00] VITALS: BP 138/87; PULSE 93; RESP 18; TEMP 36.1; O2SAT 97
[2025-04-16] MEDS: cefTRIAXone/D5w 1gm IV premix 1 GM/50 ML BAG IV (08:26)
[2025-04-16] MEDS: HYDROcodone/APAP 5/325 TABLET 1 TAB PO ×2 (08:26→19:30)
[2025-04-16] MEDS: ASPIRIN EC 81 MG TABEC PO ×2 (08:26→20:06)
--- NOTE | 2025-04-16 09:30 | PC.CC ---
Addendum entered by Yolette Milan RN 04/16/25 19:13: 1400 Reached out to [facility] if they can see the pt tomorrow, picc line placement today. [facility] responded on [employer] that they are able to see the pt tomorrow. Original Note: Andrews from [facility] confirmed that the delivery of meds were made yesterday.
[2025-04-16] MEDS: Magnesium Sulfate 4 GM Ivpb 4 GM/50 ML BAG IV ×2 (09:34→13:19)
[2025-04-16] MEDS: POTASSIUM CHLORIDE 10% 20 MEQ/15 ML UDC PO (09:34)
[2025-04-16] MEDS: SODIUM CHLORIDE 0.9% 500 ML 500 ML 999 ML IV (09:50)
[2025-04-16 10:19] LABS: Vancomycin,Trough 15.9 mcg/mL (5.0-10.0)
--- NOTE | 2025-04-16 11:13 | CHAP ---
Patient was visited by the Spiritual Care Volunteer who prayed for them. (Volunteer was in the hospital from 10:15-13:15).
[2025-04-16 12:00] VITALS: BP 141/83; PULSE 86; RESP 18; TEMP 36.2; O2SAT 96
--- NOTE | 2025-04-16 13:42 | PC.SS ---
Addendum entered by Janelle Delarosa 04/16/25 16:00: SS verified with floor nurse that patient did not get his picc line today. He will get picc line tomorrow. i.v. med were delivered to the home yesterday and [facility] can open with patient tomorrow. Original Note: SS spoke to physician and patient is pending a picc line placement today. If patient receives line and transfer center confirms HH, physician team is ready for discharge home with i.v. antibiotics with HH.
--- NOTE | 2025-04-16 14:24 | PD.RESPRO ---
Documentation for date of: 04/16/25 Subjective Subjective Interval history: Patient examined at bedside today. No acute overnight events. Patient wondering when to go home. Patient is wondering when he is going to get his PICC line. He reports minimal pain at this time. No other complaints at this time Exam Vital Signs Temp Pulse Resp BP Pulse Ox O2 Del Method O2 Flow Rate 97.4 F 85 18 135/83 H 97 Room Air 2 04/17/25 08:00 04/17/25 11:41 04/17/25 11:41 04/17/25 11:41 04/17/25 11:41 04/17/25 11:41 04/17/25 09:47 FiO2 2 04/10/25 18:49 Narrative Exam General: No acute distress; A&Ox3 Skin: Warm, dry, intact, no obvious rash. HENT: NCAT, EOMI, not icteric. External ears normal. No rhinorrhea. Mucous membranes moist. Cardiovascular: Regular rate and rhythm, no murmur, +S1/S2. Respiratory: Lungs CTAB GI: Soft, nontender, non-distended. No guarding or rebound tenderness. Extremities: Bilateral foot to ankle 2+ pitting edema, Bilateral ankle to knee 1+ edema; Range of motion for LE bilaterally decreased bilaterally with R side more so decreased; No R knee tenderness; R knee erythema and serosanguinous drainage present. no cyanosis, no clubbing. Extremity pulses present Neuro: No focal deficits observed. Conversant, moving all extremities. No overt cerebellar signs/incoordination. Psychiatric: Cooperative, appropriate affect. Objective Labs 04/17/25 05:49 04/17/25 05:49 Labs: Laboratory Results - last 24 hr 04/17/25 05:49 WBC 8.5 RBC 2.90 L Hgb 9.6 L Hct 28.1 L MCV 97 MCH 33.1 MCHC 34.2 RDW Std Deviation 43.5 Plt Count 487 H Neut % (Auto) 61 Lymph % (Auto) 21 [place] % (Auto) 9 Eos % (Auto) 8 Baso % (Auto) 1 Neut # (Auto) 5.2 Lymph # (Auto) 1.8 [place] # (Auto) 0.7 Eos # (Auto) 0.7 H Baso # (Auto) 0.1 Immature Gran # (Auto) 0.07 H Absolute Nucleated RBC 0.00 Immature Gran % 1 H Nucleated RBC % 0 Sodium 141 Potassium 3.5 Chloride 105 Carbon Dioxide 24.6 Anion Gap 11 BUN 5 L Creatinine 0.5 L Estim Creat Clear Calc 150.4 eGFR > 60 BUN/Creatinine Ratio 10 L Glucose 99 Calculated Osmolality 278 Calcium 9.7 Corrected Calcium 9.9 Phosphorus 4.1 Magnesium 1.9 Total Bilirubin 0.3 AST 30 ALT 17 Alkaline Phosphatase 38 L Total Protein 6.7 Albumin 3.7 Globulin 3.0 Albumin/Globulin Ratio 1.2 Quality Measures Quality Measures VTE prophylaxis Assessment & Plan Assessment Current Active Medications: Generic Name Dose Route Start Last Admin Trade Name Freq PRN Reason Stop Dose Admin Acetaminophen 650 mg 04/10/25 11:10 04/10/25 23:03 Acetaminophen 325 Mg Tablet PO 05/10/25 11:09 650 mg Q6H PRN Administration Fever >100 or pain 1-3 Hydrocodone Bitart/Acetaminophen 1 tab 04/12/25 14:47 04/15/25 10:12 Hydrocodone/Apap 5/325 Tablet PO 04/17/25 10:54 1 tab Q6HR PRN Administration Pain 4-6 Protocol Aspirin 81 mg 04/12/25 21:00 04/15/25 08:16 Aspirin Ec 81 Mg Tabec PO 05/12/25 20:59 81 mg BID ADITI Administration Dextrose 25 ml 04/10/25 16:53 Dextrose 50%-Water Inj 50 Ml Syringe IV 05/10/25 16:52 Q15MIN PRN BG 50-70 responsive npo pt Dextrose 50 ml 04/10/25 16:53 Dextrose 50%-Water Inj 50 Ml Syringe IV 05/10/25 16:52 Q15MIN PRN BG <50 OR BG <70 & pt unresponsive Glucagon 1 mg 04/10/25 16:53 Glucagon Inj 1 Mg Vial IM Q15MIN PRN BG <70, and no IV access Piperacillin/Tazobactam/Dextrose 3.375 gm in 50 mls @ 12.5 mls/hr 04/11/25 22:00 04/15/25 05:07 Zosyn IV 04/18/25 21:59 12.5 mls/hr Q8HR ADITI Administration Ceftriaxone Sodium/Dextrose 1 gm in 50 mls @ 100 mls/hr 04/13/25 11:23 04/15/25 08:16 Rocephin/D5w 1gm Iv Premix IV 04/20/25 11:22 100 mls/hr QDAY ADITI Administration Vancomycin HCl 200 mls @ 120 mls/hr 04/14/25 22:00 04/15/25 10:35 Vancomycin/Water 1gm Ivpb IV 04/21/25 21:59 120 mls/hr Q12H ADITI Administration Protocol Insulin Human Lispro 0 unit 04/10/25 21:00 04/15/25 08:18 Insulin Lispro (Admelog) 1 Unit/0.01 Ml Unit SC 05/10/25 20:59 Not Given ACHS ADITI Protocol Morphine Sulfate 4 mg 04/10/25 19:08 04/14/25 19:19 Morphine Sulf Inj 10 Mg/Ml Vial IVP 04/15/25 19:07 4 mg Q8HR PRN Administration PAIN 4-10 Protocol Ondansetron HCl 4 mg 04/10/25 11:10 04/12/25 10:07 Ondansetron Inj 2 Mg/Ml Inj 2 Ml IVP 05/10/25 11:09 4 mg Q6H PRN Administration NAUSEA OR VOMITING Protocol Pharmacy Consult 1 each 04/10/25 11:45 Vancomycin Pharmacy To Dose 1 Each Each IV 05/10/25 11:44 QDAY PRN CONSULT Plan Mr. Lindsay is a Salvadorean speaking 64 year old male with a past medical history of R knee replacement (12/2024), HTN and pre-diabetes who presented to the ED due to worsening R knee pain and drainage. Patient was admitted for further evaluation and management of R knee infection. # R Prosthetic Knee Infection Patient had R knee Replacement surgery 12/2024. Hospitalized for R knee infection in 02/2025. Was on Rocephin IV outpatient (was dc'd), came in taking Cephalexin Patient's R knee has worsening drainage, pain, erythema over the last week. Patient was told to come for evaluation by Dr. Razo. Attempted multiple times to get patient transferred to higher level of care s/p Irrigation, debridement and washout (04/11), unsuccessful. -Dr. Razo noted that Dr. Austin from [facility] advised him to wait for a few more days and to see the result of I and D of the right knee done on 04/10/2025. -Orthopedic surgeon Dr. Razo recommended PICC line insertion with 4 weeks of cefazolin, pending PICC -Continue antibiotics Vancomycin IV qd pharmacy dosed, Zosyn 3.375 IV q6hr -Pain control with acetaminophen 650 mg po q6h, hydromorphone 0.25 mg q4h prn, morphine IV 1 mg q4hr prn -Aspirin 81 mg po BID -Wound Care referred -Pending PICC LINE, IV ABX WITH HOME HEALTH UNTIL MAY 11 #Hypomagnesemia Low on admission 0.8 04/14: 1.1 04/15: 1.6 -will continue to monitor #Prediabetes Glucose on admission 111 Hgb A1c 04/11/2025: 6.1 Patient does not take any home medication for diabetes -Glucose checks q6hr - ISS #htn Patient takes losartan for blood pressure. -Will restart medication when appropriate. Hospital Management: Disposition: Med Surg Diet: Carb Consistent GI Prophylaxis: n/a Bowel Prophylaxis: n/a DVT Prophylaxis: SCD's CODE STATUS: FULL CODE Patient seen and care discussed with my attending physician, Dr. Vidal Mazariegos, PGY-2 Attending Provider Attestation/Addendum I have discussed and was present for the essential components of the history, physical examination, diagnosis, and treatment plan with the resident. I agree with the patient's care as documented by the resident and amended herein by me. Royal Drake DO. Although this document has been carefully reviewed, there may still be some phonetic and other typographical errors. These errors are purely grammatical due to imperfections in the software program and should not be construed in any way to compromise the substance of the patient's medical care during this visit. Patient seen and evaluated this AM. Patient doing well, no subjective complaints in the morning. Patient wishes to go home with home health hence I have ordered home health for IV antibiotics, ceftriaxone through 11 May which will be a 4-week duration total of IV antibiotics per orthopedic surgery recommendations. Patient will follow-up with Dr. Razo upon discharge. We did order a PICC line which was supposed to be placed today however apparently the hospital is out of PICC lines with no ETA when they will be resupplied hence the patient will remain here for now until we can get that placed.
[2025-04-16 16:00] VITALS: BP 154/94; PULSE 85; RESP 17; TEMP 36.4; O2SAT 96
[2025-04-16 20:00] VITALS: BP 149/88; PULSE 90; RESP 16; TEMP 36.4; O2SAT 94
[2025-04-17] VITALS: BP 152/86; PULSE 83; RESP 16; TEMP 36.2; O2SAT 96
[2025-04-17 04:00] VITALS: BP 143/82; PULSE 84; RESP 20; TEMP 37; O2SAT 96
[2025-04-17] MEDS: HYDROcodone/APAP 5/325 TABLET 1 TAB PO (05:59)
[2025-04-17 06:15] LABS: Basophils # (Auto) 0.1 Thou/mm3 (0.0-0.2); Basophils % (Auto) 1 % (0-2.5); Eosinophils # (Auto) 0.7 Thou/mm3 (0.0-0.5); Eosinophils % (Auto) 8 % (0-10); Hematocrit 28.1 % (41.0-53.0); Hemoglobin 9.6 g/dL (13.5-16.0); Immature Granulocytes Auto 0.07 Thou/mm3 (0.00-0.00); Lymphocytes # (Auto) 1.8 Thou/mm3 (1.0-4.8); Lymphocytes % (Auto) 21 % (10-50); Mean Corpuscular HGB Conc 34.2 g/dl (31.0-37.0); Mean Corpuscular Hemoglobin 33.1 pg (25.0-35.0); Mean Corpuscular Volume 97 fL (80-100); Monocytes # (Auto) 0.7 Thou/mm3 (0.0-0.8); Monocytes % (Auto) 9 % (0-12); Neutrophils # (Auto) 5.2 Thou/mm3 (1.8-7.7); Neutrophils % (Auto) 61 % (37-80); Nucleated Red Blood Cell # 0.00 Thou/mm3 (0.00-0.00); Nucleated Red Blood Cell % 0 /100 WBC (0); Platelet Count 487 Thou/mm3 (140-440); RDW Standard Deviation 43.5 fL (35.1-43.9); Red Blood Count 2.90 Miln/mm3 (4.50-5.90); White Blood Count 8.5 Thou/mm3 (3.8-10.6)
[2025-04-17 06:58] LABS: Alanine Aminotransferase 17 U/L (10-49); Albumin, Serum 3.7 gm/dL (3.4-4.8); Albumin/Globulin Ratio 1.2 (1.2-2.2); Alkaline Phosphatase 38 U/L (46-116); Anion Gap 11 (7-16); Aspartate Amino Transferase 30 U/L (0-34); BUN/Creatinine Ratio 10 Ratio (12-20); Bilirubin,Total 0.3 mg/dL (0.3-1.2); Blood Urea Nitrogen 5 mg/dL (9-23); Calcium 9.7 mg/dL (8.3-10.6); Calcium (Corrected) 9.9 mg/dL (8.5-10.1); Carbon Dioxide 24.6 mMol/L (20.0-31.0); Chloride 105 mMol/L (98-107); Creatinine (Component) 0.5 mg/dL (0.6-1.3); Estimated Creatinine Clearance 150.4 mL/min (>60); Globulin 3.0 gm/dL (2.3-3.5); Glucose 99 mg/dL (74-106); Magnesium 1.9 mg/dL (1.6-2.6); Osmolality,Calculated 278 (275-295); Phosphorous 4.1 mg/dL (2.4-5.1); Potassium 3.5 mMol/L (3.4-5.1); Sodium 141 mMol/L (136-145); Total Protein 6.7 gm/dL (5.7-8.2); eGFR > 60 See Note
--- NOTE | 2025-04-17 07:45 | XR_ITS ---
Examination: Ultrasound-guided needle placement right brachial vein. Dual-lumen central line placement (PICC line). Fluoroscopy AP chest, portable, single view Exam date and time:April 17, 2025 0857 hours INDICATIONS: Need for long-term intravenous antibiotic therapy A timeout was completed verifying correct patient, procedure, site, positioning Informed consent provided Technique: The patient's site was prepped and draped in sterile fashion. Maximum Sterile Barrier Technique used including cap, mask, sterile gown, sterile gloves, and sterile full body drape. If ultrasound technique used: sterile gel and sterile probe covers. Hand Hygiene performed using proper scrub, soap and water, or alcohol-based hand rub. Site right portable apparatus utilized to confirm patency of the right brachial vein Utilizing ultrasound guidance guidance successful 21-gauge needle puncture into the right brachial vein Ultrasound images recorded and stored. 5 cc 1% lidocaine administered for local anesthetic. Successful micropuncture with a 21-gauge needle is performed. 0.18 wire guide is then introduced into the SVC under fluoroscopic guidance. Dual-lumen catheter dilator is then introduced, followed by the catheter in the SVC and proper position under fluoroscopic guidance. Successful aspiration of blood and flushing with heparinized saline is then performed in the 2 venous limbs. The catheter sutured in place. Findings: Under fluoroscopy, the tip of the catheter is in good position in the vena cava. Portable chest x-ray, post line placement is ordered. Estimated blood loss 3 cc The patient tolerated the procedure well and was in stable and satisfactory condition at completion of the procedure Impression: Successful ultrasound-guided needle placement right brachial vein Successful placement of dual lumen central line, percutaneous Fluoroscopy 0.1 minute radiation dose 1.61 milligray 1 spot fluoroscopic chest film. AP chest completion procedure demonstrates satisfactory position central line. May use central line.
[2025-04-17 08:00] VITALS: BP 130/88; PULSE 89; RESP 18; TEMP 36.3; O2SAT 95
[2025-04-17] MEDS: cefTRIAXone/D5w 1gm IV premix 1 GM/50 ML BAG IV (08:32)
[2025-04-17] MEDS: ASPIRIN EC 81 MG TABEC PO (08:32)
--- NOTE | 2025-04-17 08:58 | PC.NURSE ---
PATIENT TRANSFER TO [facility] FOR PICC LINE INSERTION, PT ALERT AND ORIENTED X4. TRANSFER VIA GURNEY ACCOMPANIED BY [facility]. REPORT GIVEN BY PHONE AND AT BEDSIDE.
[2025-04-17 09:31] VITALS: BP 160/100; PULSE 88; RESP 17; O2SAT 99
[2025-04-17 09:47] VITALS: BP 180/89; PULSE 87; RESP 17; O2SAT 100
[2025-04-17] MEDS: HEPARIN SOD LOCK SYR 100 UNIT/ML 500 UNIT STFIELD (09:47)
[2025-04-17] MEDS: LIDOCAINE INJ PF 1% 30 ML VIAL EPID (09:47)
--- NOTE | 2025-04-17 10:22 | CHAP ---
Patient expressed gratitude for visit and prayer.
--- NOTE | 2025-04-17 10:22 | PC.NURSE ---
patient came down to IR for a PICC line insertion, consent obtained by patient and , PICC line inserted without any complications, (see MAR for medications given) Dr Deal gave me a verbal order for may use PICC line Report given to Rochelle [facility]
--- NOTE | 2025-04-17 11:13 | PC.NURSE ---
COORDINATED CARE WITH TRANSFER NURSE, PHARMACY AND HOME HEALTH AGENCY AWARE PT WILL BE SEEN BY HOME HEALTH NURSE TOMORROW.
[2025-04-17 11:41] VITALS: BP 135/83; PULSE 85; RESP 18; O2SAT 97
--- NOTE | 2025-04-17 11:43 | ESDS_ITS ---
<Statement entered by Anay Mazariegos MD - 04/17/25 17:10> I have reviewed the note and agree with the resident's assessment & plan with exceptions as below. I have personally reviewed labs, imaging, home meds/prior records, examined the patient, formulated and discussed management plan with the IM team. Patient examined bedside today. Patient got PICC line today and will be discharged with home health IV antibiotics until May 11 intravenous Rocephin. This was already set up with home health. Patient was then discharged with the following instructions. Patient also recommended to follow- up with orthopedic surgeon, Dr. Chari valladares. Anay Mazariegos, PGY-2 Internal Medicine Planned Discharge Date 04/17/25 DS: Providers Provider Date of admission: 04/10/25 08:59 Primary care physician: JENNIE Tariq Admitting Provider: Carmen Denny DO Attending Provider on Admission: Herbie Drake DO Consults: 04/10/25 11:12 Referral Wound Care Routine Comment: 04/12/25 16:57 Referral Physical Therapy Urgent Comment: Physician Instructions: 04/14/25 14:02 Consult to Orthopedic Routine Comment: Consulting Provider: Keo Razo Attending Provider on DC: Herbie Drake DO Discharging Provider: Herbie Drake DO DS: Diagnosis Problem List Completed Was Problem List Reviewed/Reconciled?: Yes Hospital Course Hospital Course Hospital course: Mr. Lindsay is a Welsh speaking 64 year old male with a past medical history of R knee replacement (12/2024), HTN and pre-diabetes who presented to the ED due to worsening R knee pain and drainage. Patient was admitted for further evaluation and management of R knee infection. Pt arrived to the ED with normal vital signs and elevated HR: 97. Labs were done and were pertinent for wbc 7.3, hgb 10.2, PT 12.7, Potassium 3.1, CRP 3.4, Pro-anabella 0.16. Imaging was done was showed R Knee XR signifcant for possible soft tissue defect traversing the patellar tendon, Large knee effusion, amenable to aspiration. Pt was given fluids in the ED, medicine was consulted and pt was admitted to the floors. Attempted multiple times to get patient transferred to higher level of care s/p Irrigation, debridement and washout (04/11), unsuccessful. Pt was seen by his Orthopedic surgeon, Dr. Razo, who performed washout and I and D procedure on 04/10/2025. Culture was collected and pt was then started on broad spectrum Zosyn and Vancomycin. Orthopedic surgeon Dr. Razo recommended PICC line insertion with 4 weeks of cefazolin. Will be discharged with Ceftriaxone IV and PICC line. Discharge Instructions: Follow-up with your PCP within 1 week Take your medicines as prescribed Follow up with your orthopedic surgeon, Dr. Razo upon discharge Return to ED if your symptoms worsen or return Agende pili con perez doctor de cabecera dentro de jessica semana tome perez medicina carlos recomienda el doctor agende pili con el siruguidoo de la crow Razo cuando lo den de iain regrese al cuarto de emergencia si mustapha sintomas no mejoran or empioran # R Prosthetic Knee Infection #Hypomagnesemia #Prediabetes #htn Patient's plan and care discussed with my attending, Dr. Drake, and supervising residents Hannah Peralta MD, and MD Johnny Hernandez MD Internal Medicine PGY-1 Time Spent with Patient Time attestation: Total time spent providing and/or coordinating discharge services: Time spent: Greater than 30 minutes Exam Vital Signs Temp Pulse Resp BP Pulse Ox O2 Del Method O2 Flow Rate 97.4 F 85 18 135/83 H 97 Room Air 2 04/17/25 08:00 04/17/25 11:41 04/17/25 11:41 04/17/25 11:41 04/17/25 11:41 04/17/25 11:41 04/17/25 09:47 FiO2 2 04/10/25 18:49 Narrative Exam General: No acute distress; A&Ox3 Skin: Warm, dry, intact, no obvious rash. HENT: NCAT, EOMI, not icteric. External ears normal. No rhinorrhea. Mucous membranes moist. Cardiovascular: Regular rate and rhythm, no murmur, +S1/S2. Respiratory: Lungs CTAB GI: Soft, nontender, non-distended. No guarding or rebound tenderness. Extremities: Bilateral foot to ankle 2+ pitting edema, Bilateral ankle to knee 1+ edema; Range of motion for LE bilaterally decreased bilaterally with R side more so decreased; No R knee tenderness; R knee erythema and serosanguinous drainage present. no cyanosis, no clubbing. Extremity pulses present Neuro: No focal deficits observed. Conversant, moving all extremities. No overt cerebellar signs/incoordination. Psychiatric: Cooperative, appropriate affect. Discharge Plan Plan Patient Disposition: Home w/HOME HEALTH Disposition Comment: Pending Patient condition on transfer: Stable Care Plan Goals: Discharge instructions Follow-up with your PCP within 1 week Take your medicines as prescribed Follow up with your orthopedic surgeon, Dr. Razo upon discharge Return to ED if your symptoms worsen or return Agende pili con perez doctor de cabecera dentro de jessica semana tome perez medicina carlos recomienda el doctor agende pili con el sirujano de vonda Razo cuando lo den de iain regrese al cuarto de emergencia si mustapha sintomas no mejoran or empioran Prescriptions/Referrals Prescriptions/Med Rec: New ceftriaxone 1 gram recon soln 1 g IV QDAY 25 Days Qty: 25 0RF hydrocodone-acetaminophen 5-325 mg tablet 1 tab PO Q6H MDD 4 tablets PRN (Reason: pain) 7 Days Qty: 20 0RF Rx Instructions: Take one tablet by mouth up to four times a day aspirin 81 mg tablet 81 mg PO BID 18 Days Qty: 36 0RF Rx Instructions: Take one tablet by mouth twice a day Continued losartan-hydrochlorothiazide 100-25 mg tablet 1 tab PO DAILY Discontinued cephalexin 500 mg capsule 500 mg PO QID Patient Comments: Take 1 capsule by mouth four times a day for 10 days naproxen 375 mg tablet 375 mg PO 3XD Patient Comments: Take 1 tablet by mouth three times a day Referrals: Annie Kirkpatrick FNP-C [Primary Care Provider] - Keo Razo MD [Physician] - Patient/Caregiver Discharge Instructions Discharge Activity: activity as tolerated Education Materials: Knee Replace After Hospital, Knee Replace After Surgery, ED Knee Effusion Print Language: Welsh Stand Alone Forms: Kiley Award Info., Patient Portal Info Letter Discharge Order Discharge Orders: Discharge (Routine); Ordered 04/17/25 Ordered By: Anay Mazariegos Quality Discharge Quality Measures VTE prophylaxis MD Attestestation MD Attestation I have discussed and was present for the essential components of the discharge history, physical examination, diagnosis, and discharge treatment plan with the resident. I agree with the patient's discharge care as documented by the resident and amended herein by me. Royal Drake DO. The patient understood all discharge instructions, all questions were answered satisfactorily. The patient was instructed to return to the Emergency Department is symptoms worsened or persisted. Patient discharged with ceftriaxone 1 g daily until 11 May. Patient will need close follow-up with orthopedic surgeon Dr. Marcelino and will likely need follow-up with tertiary center at Dr. Marcelino's discretion. The patient was stable, afebrile, tolerating p.o. intake at time of discharge home with home health physical therapy. All questions were answered satisfactorily. Although this document has been carefully reviewed, there may still be some phonetic and other typographical errors. These errors are purely grammatical due to imperfections in the software program and should not be construed in any way to compromise the substance of the patient's medical care during this visit.
--- NOTE | 2025-04-17 11:56 | PC.SS ---
Follow up note: Patient to d/c home today with HH for i.v. antibiotics
--- NOTE | 2025-04-17 15:37 | PC.CM ---
Patient accepted by [facility] health and [facility] for IV ABX treatment. Patient discharged today and [facility] will open tomorrow. Meds were already delivered by [facility].
== END 2025-04-17 12:15 | disposition home health service (06) | DRG 349 ==
LOC: SERX 07:52 → SERHOLD 09:20 → S3SX 10:41
PROVIDERS: Orthopaedic Surgery; Registered Nurse General Practice; Admitting Provider Internal Medicine; Emergency Provider Family Medicine; PCP Nurse Practitioner Family; Visit Provider Student in an Organized Health Care Education/Training Program
DX: T84.53XA Infection and inflammatory reaction due to internal right knee prosthesis, initial encounter (principal); S76.119A Strain of unspecified quadriceps muscle, fascia and tendon, initial encounter; I10 Essential (primary) hypertension; Z96.651 Presence of right artificial knee joint; R73.03 Prediabetes; Y83.1 Surgical operation with implant of artificial internal device as the cause of abnormal reaction of the patient, or of later complication, without mention of misadventure at the time of the procedure; Z79.82 Long term (current) use of aspirin; E83.42 Hypomagnesemia; M25.461 Effusion, right knee
CPT/HCPCS: 36415; 73562; 73700; 80053; 80069; 80202; 83036; 83735; 84100; 84145; 84439; 84443; 85025; 85610; 85730; 86140; 87070; 87075; 87081; 87205; 97162; 99283; A4217; A4649; C1751; C1894; J0692; J0696; J1171; J1642; J2270; J2405; J2543; J2704; J2765; J3010; J3370; J3372; J3375; J3475; J3480; J3490; J7030; J7050; J7999; A9270

== ENCOUNTER → 2025-05-15 | Outpatient (CLI) | payer MEDICAID, SELFPAY ==
--- NOTE | 2025-05-15 09:15 | XR_ITS ---
Examination: Abdomen sonogram, complete Date and time of exam: May 15, 2025 1030 hours INDICATIONS: Abnormal laboratory values on examination one week ago. Technique: Multiple real-time grayscale transabdominal sonographic images of the abdomen have been obtained. Findings: Normal gallbladder Normal common bile duct 0.3 cm Pancreatic head 3.0 cm Mid and distal aorta visualized not enlarged. Liver 16.9 cm fatty infiltration no focal liver lesions Normal hepatopedal portal venous flow Patent IVC Right kidney 11.5 cm renal cortex 1.9 cm Kidney 12.1 cm cortex 1.9 cm Moderate renal parenchymal scar formation Spleen 9.2 cm IMPRESSION: Normal gallbladder Mild hepatomegaly fatty infiltration no focal liver lesions Moderate bilateral renal parenchymal scar formation No hydronephrosis
== END | disposition home or self-care (01) ==
LOC: CDIM 09:38
PROVIDERS: PCP Family Medicine; Referring Provider Internal Medicine; Visit Provider Internal Medicine
DX: K76.0 Fatty (change of) liver, not elsewhere classified (principal); N28.89 Other specified disorders of kidney and ureter
CPT/HCPCS: 76700